=== PATIENT | female | born 1940 | race Caucasian/White ===

== ENCOUNTER 2024-03-18 19:55 | Inpatient (IN) | payer MEDICARE, SELFPAY ==
[2024-03-18] VITALS (22 sets, daily range): BP systolic 133–250; BP diastolic 78–124; PULSE 65–98; RESP 15–26; TEMP -17.7–37.1; O2SAT 95–100; BMI 28.9
--- NOTE | 2024-03-18 19:59 | EKG12_ITS ---
Test Reason : STROKE Blood Pressure : / mmHG Vent. Rate : 073 BPM Atrial Rate : 073 BPM P-R Int : 164 ms QRS Dur : 080 ms QT Int : 426 ms P-R-T Axes : 049 056 057 degrees QTc Int : 469 ms Normal sinus rhythm Nonspecific ST abnormality Abnormal ECG No previous ECGs available Confirmed by CARMELA BARRETO, CRISTIN ([id number]), writer editor LYNN BRONSON ([id number]) on 03/23/2024 6:12:44 AM Referred By: Asmita Oseguera Confirmed By:CRISTIN CASEY MD
--- NOTE | 2024-03-18 20:00 | EDS_ITS ---
HPI History of Present Illness Chief Complaint: Stroke Alert Onset/Context/Timing Onset: Today Context: Sudden Onset Timing: Waxes and wanes Quality and Location: Positive for Right Arm Weakness and Right Leg Weakness; Negative for Slurred Speech, Expressive Aphasia or Receptive Aphasia Worsened by: Nothing Relieved by: Nothing Associated Symptoms Associated Symptoms: Negative for Headache, Nausea, Vomiting or Chest Pain Narrative Narrative: Patient presents with stroke symptoms that began today. Patient states her last known well was approximately 1745. Patient states she was watching TV and she felt dizzy. Patient states her right arm and leg became weak. Patient denies any difficulty speaking. Patient denies any facial weakness. Patient states that the dizziness felt like she was off balance. Patient denies any headaches. Patient states she took 2 regular strength aspirin. EMS noted her blood pressure to be 250 systolic. EMS repeated the blood pressure and it came down to 195 systolic. Upon arrival to the emergency department, patient's symptoms had improved. [facility] Medical History (Updated 03/18/24 @ 21:[address] Shamir Richard, ) Hypertension Home Medications ?Medication ?Instructions ?Recorded ?Last Taken ?Type atenolol 50 mg tablet 50 mg PO DAILY 03/18/24 Unknown History conj estrogen-medroxyprogesterone 1 tab PO DAILY 03/18/24 Unknown History 0.625 mg-2.5 mg tablet (Prempro) hydrochlorothiazide 50 mg tablet 50 mg PO DAILY 03/18/24 Unknown History Allergy/AdvReac Type Severity Reaction Status Date / Time No Known Allergies Allergy Verified 03/18/24 20:49 Family History (Updated 03/18/24 @ 20:52 by Tea Kevin) Mother Cancer Surgical History no surgical history no surgical history Social History household members: none ROS ROS ED Constitutional Constitutional ED: Denies chills or fever(s) Eyes Eyes: Denies blurry vision or change in vision ENT ENT ED: Denies rhinorrhea or sore throat Cardiovascular Cardiovascular: Denies chest pain or palpitations Respiratory/Chest Respiratory/Chest: Denies cough or dyspnea Gastrointestinal Gastrointestinal: Denies nausea or vomiting Genitourinary Genitourinary ED: Denies dysuria or hematuria Musculoskeletal Musculoskeletal: Denies back pain or neck pain Integumentary Denies abscess or rash Neurologic Neurologic: Reports weakness; Denies headache(s) Allergic/Immunologic Allergic/Immunologic ED: Denies mouth swelling or urticaria EXAM Physical Exam Const Vital Signs: 03/18/24 20:13 03/18/24 20:14 Pulse Rate 83 Respiratory Rate 18 Blood Pressure 196/100 H Blood Pressure Mean 132 Pulse Ox 97 97 Oxygen Delivery Method Room Air Positive well nourished and well developed General Appearance ED: well developed and NAD HEENT Reports moist mucous membranes Eyes EOMs intact bilaterally Neck supple and no JVD Resp normal respiratory effort and clear to auscultation bilaterally Cardio Rate: regular rate Rhythm: regular rhythm GI soft to palpation, non-tender and non-distended Extremity General Extremety ED: Negative for deformity or edema General Extremity: Negative for deformity or edema Neuro oriented x3, CN's II-XII intact bilaterally and no sensory deficits noted Neuro Narrative: Patient is able to lift her bilateral arms and legs off the bed. However there is a mild drift of the right upper and lower extremities. Barbara Coma Scale: document GCS findings Spontaneous Obeys Commands Oriented 15 Sensorium / Orientation: alert Speech: speech normal Psych mental status grossly normal NIHSS NIHSS Initial: 1a Level of Consciousness: 0 1b LOC Questions (Score 2 if aphasic/stupor): 0 1c LOC Commands (Only score 1st attempt): 0 2 Best Gaze (If aphasic, use reflexive mvmts.): 0 3 Visual: 0 4 Facial Palsy: 0 5 Motor Arm Right (UN = amputation/fusion): 1 5 Motor Arm Left: 0 6 Motor Leg Right: 1 6 Motor Leg Left: 0 7 Limb ataxia (Only + if out of proportion): 0 8 Sensory (Aphasia/stupor=0 or 1, coma=2): 0 9 Best Language: 0 10 Dysarthria (mute, coma=2, intubated=UN): 0 11 Extinction and Inattention (only scored if +): 0 Total Score: 2 MDM MDM MDM Narrative Medical decision making narrative: Stroke alert was called prehospital. Patient was evaluated initially and CT scan of the brain and CTA of the head and neck was obtained to assess for stroke and large vessel occlusion. EKG will be obtained to assess for cardiac dysrhythmia and cardiac ischemia. CBC will be obtained to assess for leukocytosis and anemia. Basic metabolic profile will be obtained to assess for electrolyte abnormality and renal function. High-sensitivity troponin will be obtained to assess for cardiac ischemia. PT with INR and PTT will be obtained to assess for coagulopathy. Chest x-ray will be obtained to assess for pneumonia and widened mediastinum. Lab Data Attestation: I reviewed the patient's lab results. Lab results narrative: CBC was reviewed and was within normal limits. PT with INR and PTT were reviewed and were within normal limits. Labs: Laboratory Results - last 24 hr 03/18/24 19:45 WBC 6.3 RBC 4.72 Hgb 14.2 Hct 41.1 MCV 87.1 MCH 30.1 MCHC 34.5 RDW Std Deviation 39.6 RDW Coeff of Belk[place] 12.5 Plt Count 256 MPV 10.5 Immature Gran % (Auto) 0.200 Neut % (Auto) 54.1 Lymph % (Auto) 32.2 Long % (Auto) 11.1 H Eos % (Auto) 1.3 Baso % (Auto) 1.1 H Absolute Neuts (auto) 3.4 Absolute Lymphs (auto) 2.04 Nucleated RBC % 0 PT 12.4 INR 0.9 APTT 29.4 Radiography Chest X-Ray - ED: 1 View, Read by ED Physician, Read by Radiologist and No Acute Disease Diagnostic Testing: Clinical Impression(s) from Imaging Studies Brain CT 03/18/24 20:01 IMPRESSION: No acute disease Electronically Signed: John Cortes MD at 20:16 EDT Reading Location ID and State: [address] [place] [address] Tel , Service support , ADDENDUM: 03/18/242027 IMPRESSION: No acute disease N.B. : The above Results were Read Back by John Cortes MD to Shamir Richard DO, and understanding confirmed on 03/18/2024 20:21:25 (ET). Electronically Signed: John Cortes MD at 20:16 EDT , CT scan of the brain was obtained. There is no acute intracranial abnormality. This was interpreted by the radiologist and was also independently reviewed by myself. CTA of the head and neck was obtained. There is moderate stenosis of the vertebral arteries. There is moderate stenosis of the right and left cavernous carotid arteries, right worse than left. This was interpreted by the radiologist was independently reviewed by myself. Portable 1 view chest x-ray was obtained. On my independent interpretation, lung andre are clear. There is normal cardiac silhouette. Bony thorax is normal. There is no acute process noted. Radiologist also interpreted the x- ray and agrees. EKG Initial EKG: Attestation: I personally reviewed and interpreted this EKG as follows: Interpretation: Sinus Rhythm (73) and No Acute Injury Pattern Comments: EKG was obtained. On my independent interpretation, it showed a normal sinus rhythm with a rate of 73. TN interval, QRS interval, and QTc intervals were all normal. [place] was normal. There are nonspecific ST-T wave changes. Prior EKG tracings: not available for review Prior: No Prior Management Discussion w/another healthcare provider: Hospitalist, Ash Conveyor Operator and Radiologist Treatment and Re-Evaluation Narrative: Case was discussed with the stroke neurologist who evaluated the patient. Since the patient's symptoms are waxing and waning, tenecteplase was recommended by the stroke neurologist. Patient was agreeable with this. Patient was given with tenecteplase. Patient was given a dose of labetalol prior to adm inistration of tenecteplase for her elevated blood pressure. Currently, patient's blood pressure is 169/81. Case was discussed with the hospitalist. She will admit the patient to ICU. Patient and family understand and are agreeable with the plan. All questions were answered. Stroke Documentation Questions Stroke Team Activated: Yes Reviewed Inclusion/Exclusion criteria: Yes Was Patient considered for Endovascular Intervention?: No-CTA negative, determined not to be an endovascular candidate IV Thrombolytic Administered: Yes No contraindications from thrombolytic administration: Yes Risks, Benefits, Alternatives Discussed: Yes Reasons for Thrombolytic Delay IV antihypertensives needed to reduce BP prior to Thrombolytic Administration: Yes Critical Care Time Critical Care Time: Yes Critical care time (excluding procedures): 30-74 minutes (36 minutes), Including time spent:, Discussing w/Patient &/or Family/Audio Visual Design Engineer, Discussing w/Consultants, Arranging Admission or Transfer and Performing Direct Patient Care at Bedside Discharge Plan Triage Chief Complaint: Stroke Alert Other Complaint: Neuro S/Sx ED Provider: Shamir Richard Dx/Rx/DC Orders Clinical Impression: Stroke, Hypertension, Peripheral artery disease Prescriptions: No Action hydrochlorothiazide 50 mg tablet 50 mg PO DAILY Prempro 0.625-2.5 mg tablet 1 tab PO DAILY atenolol 50 mg tablet 50 mg PO DAILY Primary Care Provider: Radha Quigley Referrals: Radha Quigley MD [Primary Care Provider] - Print Language: Kazakh Disposition Disposition: Acute Care Hospital [facility]
--- NOTE | 2024-03-18 20:01 | CT_ITS ---
We are attempting to reach an attending provider to discuss findings. An addendum with communication details will be sent when the communication is complete. STUDY: CT BRAIN WITHOUT CONTRAST REASON FOR EXAM: Female, 83 years old. Neuro deficit, acute, stroke suspected RADIATION DOSAGE (If Supplied By Facility): CTDIvol = ( ) mGy, DLP = ( 829.85 ) mGycm TECHNIQUE: Transaxial CT imaging of the brain was performed without administration of intravenous contrast material. Individualized dose optimization techniques were used for this CT. The protocol utilizes one or more of the following dose reduction techniques: automated exposure control, adjustment of mA and/or kV according to patient size,and/or use of iterative reconstruction technique. COMPARISON: No relevant priors. FINDINGS: Normal soft tissue structures. Normal calvarium. There is mild cerebral atrophy with widening of the extra-axial spaces and ventricular dilatation. There are areas of decreased attenuation within the white matter tracts of the supratentorial brain, consistent with microvascular disease changes. Normal basal ganglia and thalami. Normal brainstem. Normal cerebellum. Intracranial atherosclerosis. There is no intracranial hemorrhage. There are no findings of an acute ischemic infarction. Normal visualized paranasal sinuses. CT/STROKE Brain/Head without Cont IMPRESSION: No acute disease Electronically Signed: John Cortes MD at 20:16 EDT ,
--- NOTE | 2024-03-18 20:01 | CT_ITS ---
STUDY: CTA HEAD AND NECK WITH CONTRAST REASON FOR EXAM: Female, 83 years old. Neuro deficit, acute, stroke suspected RADIATION DOSAGE (If Supplied By Facility): CTDIvol = ( 23.71 ) mGy, DLP = ( 715.89 ) mGycm TECHNIQUE: CT angiography was performed with a multi-detector CT scanner. Data acquisition was obtained from the skull base through the vertex following intravenous administration of IV 100mL [id number]. MIP images were reconstructed from the axial data set. Post-processing of the angiographic images was performed, with multiplanar reformation and 3D reconstruction. Individualized dose optimization techniques were used for this CT. The protocol utilizes one or more of the following dose reduction techniques: automated exposure control, adjustment of mA and/or kV according to patient size,and/or use of iterative reconstruction technique. COMPARISON: No relevant priors. FINDINGS: Normal bilateral petrous carotid arteries. There is calcified plaque formation of the right cavernous carotid artery, with a moderate stenosis (50-75%). There is calcified plaque formation of the left cavernous carotid artery, with a mild stenosis (less than 50%). Normal right A1 segments of the anterior cerebral artery. Normal left A1 segments of the anterior cerebral artery. Normal intact anterior communicating artery (ACOM). Normal bilateral A2 segments of the anterior cerebral arteries. Normal right M1 and M2 segments of the middle cerebral arteries, with a normal M1 bifurcation. Normal left M1 and M2 segments of the middle cerebral arteries, with a normal M1 bifurcation. There is non-visualization of the right posterior communicating artery (PCOM). Normal left posterior communicating artery (PCOM). Moderate stenosis distal vertebral arteries bilaterally. Normal basilar artery with a normal basilar bifurcation. The visualized bilateral superior cerebellar (SCA) arteries are normal. Normal bilateral P1, P2 and visualized P3 segments of the posterior cerebral arteries. Persistent origin of the left. There is no demonstrated aneurysm of the [place]. There is no demonstrated abnormality of the visualized brain. AORTIC ARCH: Normal visualized aortic arch. Normal origins of the brachiocephalic, left common carotid, and left subclavian arteries. RIGHT CAROTID ARTERIES: Normal right common carotid artery (CCA). There is moderate atherosclerotic plaque formation with moderate narrowing of the right carotid bulb. There is moderate atherosclerotic plaque formation of the origin of the right internal carotid artery with an estimated stenosis of 50-69% stenosis. Normal visualized cervical portion of the right internal carotid artery. Normal origin of the right external carotid artery (ECA). LEFT CAROTID ARTERIES: Normal left common carotid artery (CCA). There is moderate atherosclerotic plaque formation with moderate narrowing of the carotid bulb. There is moderate atherosclerotic plaque formation of the origin of the left internal carotid artery with an estimated stenosis of 50-69% stenosis. Normal visualized cervical portion of the left internal carotid artery. Normal origin of the left external carotid artery (ECA). VERTEBRAL ARTERIES: Calcified plaque the origin of the right vertebral artery with probable moderate stenosis of the distal vertebral arteries bilaterally V4 segments.. 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 Bilateral vertebral artery stenoses as above. Sensitivity limited without 3-D reformats. N.B. : The above Results were Read Back by John Cortes MD to Shamir Richard DO, and understanding confirmed on 03/18/2024 20:44:23 (ET). Electronically Signed: John Cortes MD at 20:45 EDT ,
[2024-03-18 20:09] LABS: Absolute Lymphocyte Count 2.04 X10^3/uL (0.83-4.51); Absolute Neutrophil Count 3.4 X10^3/uL (2.0-7.7); Basophil# 0.07 X10^3/uL; Basophil% 1.1 % (0-1); Eosinophil# 0.08 X10^3/uL; Eosinophils% 1.3 % (0-5); Hematocrit 41.1 % (37-47); Hemoglobin 14.2 g/dL (12.0-15.0); Lymphocyte # 2.04 X10^3/ul (0.83-4.51); Lymphocyte % 32.2 % (19-41); Mean Corp Hgb Conc 34.5 g/dL (32-36); Mean Corpuscular Hgb 30.1 pg (27.0-32.0); Mean Corpuscular Volume 87.1 fL (81-99); Mean Platelet Vol. 10.5 fl (6.2-12.0); Monocyte% 11.1 % (0-10); NRBC Flagged by Analyzer 0 % (0-5); Neutrophil # 3.43 X10^3/uL (2.7-7.7); Neutrophil % 54.1 % (47-70); Platelet Count 256 K/mm3 (150-450); RBC Distribution Width CV 12.5 % (11.6-14.6); RBC Distribution Width SD 39.6 fl (35.1-43.9); Red Blood Count 4.72 M/mm3 (4.2-5.4); White Blood Count 6.3 K/mm3 (4.4-11.0)
--- NOTE | 2024-03-18 20:10 | NURSING ---
Called [facility] at 2000
[2024-03-18 20:18] LABS: International Normalized Ratio 0.9; Prothrombin Time (Protime)PT. 12.4 SECONDS (11.7-14.9)
[2024-03-18 20:19] LABS: Partial Thromboplast Time 29.4 Seconds (24.1-36.2)
[2024-03-18 20:29] LABS: Bedside Glucose 126 mg/dL (74-106)
[2024-03-18] MEDS: Labetalol (Prefilled) 20 MG/4 ML IV ×2 (20:39→22:02)
[2024-03-18] MEDS: TENECTEPLASE 2563.2 MG IV (20:42)
[2024-03-18 20:43] LABS: Anion Gap 8 (5-15); BUN 16 mg/dL (7-18); BUN/Creat Ratio 16.4 RATIO (10-20); Calcium,Total 8.7 mg/dL (8.5-10.1); Chloride 102 mmol/L (98-107); Creatinine, Serum 0.98 mg/dL (0.55-1.02); EST Glomerular Filtration Rate 58 mL/min (>60); Est Glom Filt Rate - Afr Amer 70 mL/min (>60); Estimated Creatinine Clearance 38.31 ml/min; Glucose 124 mg/dL (74-106); Potassium 3.3 mmol/L (3.5-5.1); Sodium Level 134 mmol/L (136-145); Troponin-I HS 8 pg/mL (3.0-54.0)
[2024-03-18] MEDS: 0.9% Saline Lock 10 ML Syringe IV ×2 (20:43)
[2024-03-18] MEDS: 0.9% Normal Saline (1000mL) 1,000 ML 100 ML IV ×2 (20:49→22:11)
--- NOTE | 2024-03-18 20:50 | RAD_ITS ---
STUDY: X-RAY CHEST REASON FOR EXAM: Female, 83 years old. Neuro deficit, acute, stroke suspected TECHNIQUE: Frontal and lateral views of the chest. COMPARISON: None. FINDINGS: The lungs are clear and expanded. There is no demonstrated pleural abnormality. Normal size heart. Normal mediastinum and yesenia. Normal visualized pulmonary arteries. Normal visualized aortic arch and descending thoracic aorta. Normal visualized thoracic spine. Normal visualized ribs, clavicles, and shoulders. There is no demonstrated abnormality of the visualized soft tissue structures of the upper abdomen. RAD/Chest 1 View IMPRESSION: Normal x-ray examination of the chest. Electronically Signed: John Cortes MD at 22:23 EDT ,
--- NOTE | 2024-03-18 20:53 | HP.PCM.HOS_ITS ---
HPI - General General Date of Admission: 03/18/24 Date of Service: 03/18/24 Chief Complaint: R sided weakness HPI Narrative The patient is an 83 y/o F w/ PMHx: HTN who presents to the [facility] ED on 03/18/24 with history of onset initially dizziness while cleaning and vacuuming her house following onset approximately 6 PM profound right-sided upper and lower extremity weakness causing a mechanical fall prompting immediate EMS call with initial blood pressure 250/110 with improvement on route without treatment noting second assessment 190/100 and fortunately upon ED arrival with initial ED assessment reevaluation with complete resolution of previous symptoms with NIH stroke scale 0 but eventually symptoms did return and she notes they would be waxing and waning in the ED however eventually the right side became near flaccid. Also in the ED upon hospitalist evaluation patient was noted to have a mild right-sided nasolabial flattening in addition to significant debility of the right upper and lower extremity. Workup in the ED included CBC with WC 6.3, human 14.2, platelet 256 without marked shift, coags unremarkable, BMP with sodium 134, potassium 3.3, glucose 124 otherwise not marked appearing, troponin 8, CT head with no acute intracranial findings, CTA head and neck with bilateral carotid artery stenosis with noted right ICA estimated stenosis 50 to 69% and left ICA also 50 to 69%, bilateral vertebral artery stenosis with noted calcified plaque at the origin of the right vertebral artery with probable moderate stenosis of the distal vertebral arteries bilaterally at the V4 segments, EKG SR with no acute evidence of ischemia, mild flattening T wave AVL. Telestroke consultation obtained with confirmation per patient of last known normal 6 PM. NIH stroke scale assessment per Telestroke evaluation noted to be 2 for mild upper and lower extremity drift with concern for ischemic stroke with recommendation for administration of tenecteplase given recurrent symptoms in the ED as patient had initially resolved upon ED arrival. In the ED patient ministered maintenance IV fluids. [facility] Medical History (Updated 03/18/24 @ 21:[address] Shamir Richard, DO) Hypertension Home Medications ?Medication ?Instructions ?Recorded ?Last Taken ?Type atenolol 50 mg tablet 50 mg PO DAILY 03/18/24 Unknown History conj estrogen-medroxyprogesterone 1 tab PO DAILY 03/18/24 Unknown History 0.625 mg-2.5 mg tablet (Prempro) hydrochlorothiazide 50 mg tablet 50 mg PO DAILY 03/18/24 Unknown History Allergy/AdvReac Type Severity Reaction Status Date / Time No Known Allergies Allergy Verified 03/18/24 20:49 Family History (Updated 03/18/24 @ 21:[address] Asmita Oseguera MD) Mother Cancer Ovarian, uterine CA. CAD (coronary artery disease) Heart disease Hypertension Myocardial infarction Father Myocardial infarction [place] following fall with hip fracture, treated medically. Surgical History (Updated 03/18/24 @ 21:[address] Asmita Oseguera MD) No history of previous surgery Surgical History no surgical history Social History (Updated 03/18/24 @ 21:[address] Asmita Oseguera MD) household members: none Smoking Status: Never smoker alcohol intake: never substance use type: does not use ROS ROS Narrative Admission Review of Systems: CONSTITUTIONAL: No weight loss, fever, chills, + weakness or fatigue. HEENT: Eyes: No visual loss, blurred vision, double vision or yellow sclerae. Ears, Nose, Throat: No hearing loss, sneezing, congestion, runny nose or sore throat. SKIN: No rash or itching, lesions, wounds. CARDIOVASCULAR: No chest pain, chest pressure or chest discomfort, palpitations, edema, orthopnea, syncopal events. RESPIRATORY: No shortness of breath, cough or sputum, wheezing, hemoptysis. GASTROINTESTINAL: No anorexia, nausea, vomiting or diarrhea, abdominal pain, melena, BRBPR. GENITOURINARY: No dysuria, frequency, urgency or retention. NEUROLOGICAL: + Dizziness episode, onset right-sided weakness with mechanical fall. No headache, syncope, numbness or tingling in the extremities, change in bowel or bladder control, seizure. MUSCULOSKELETAL: No muscle, back pain, joint pain or stiffness. HEMATOLOGIC: No anemia, bleeding or bruising. LYMPHATICS: No enlarged nodes. No history of splenectomy. PSYCHIATRIC: No history of depression or anxiety. ENDOCRINOLOGIC: No reports of sweating, cold or heat intolerance. No polyuria or polydipsia. ALLERGIES: No history of asthma, hives, eczema or rhinitis. Vital Signs Vital Signs Vital Signs: 03/18/24 20:13 03/18/24 20:14 03/18/24 20:37 Pulse Rate 83 79 Respiratory Rate 18 17 Blood Pressure 196/100 H 205/88 H Blood Pressure Mean 132 127 Pulse Ox 97 97 97 Oxygen Delivery Method Room Air Room Air 03/18/24 20:42 Pulse Rate Respiratory Rate Blood Pressure 169/81 H Blood Pressure Mean Pulse Ox Oxygen Delivery Method Weight Weight: 157 lb Body Mass Index (BMI) 0.0 Physical Exam Narrative Physical Examination: General: Awake, alert, oriented x 3 and cooperative, seated upright in the ED bed, currently more calm and interactive but before per discussion with staff had been very appropriately anxious about her current situation. Skin: Normal color, normal turgor, no icterus, no cyanosis. HEENT: AT/NC, EOMI, PERRLA, MMM, mild slight right nasolabial fold flattening which corrects with facial expression requests, no carotid bruits or JVD noted. Lungs: CTA bilaterally, moderate effort, mild decrease BL bases, no rales, ronchi or wheezing. Heart: Currently regular rate and rhythm; no gallop, rub audible. Abdomen: Soft, NTTP, ND, distant normal BS, no appreciated HSM. Extremities: No cyanosis, no clubbing, chronic ankle nonpitting edema present. Neurological: Patient awake, alert, oriented as noted, cognitive function intact; pupils equally reactive to light and accommodation, cranial nerves grossly normal except very mild right-sided nasolabial flattening which corrects with facial expressions, patient is able to move very slightly the right upper and right lower extremity but is unable to hold up against any type of gravity request, unable to perform any finger-nose or [id number] on the right side, sensation does remain intact, left side [id number] and liad-[id number] appropriate, equivocal Babinski. Psychiatric: Affect appears anxious but is more calm now than previous, no history of prior anxiety or depression. Results Lab / Micro Data 03/18/24 19:45 03/18/24 19:45 Labs: Laboratory Results - last 24 hr 03/18/24 19:45: WBC 6.3, RBC 4.72, Hgb 14.2, Hct 41.1, MCV 87.1, MCH 30.1, MCHC 34.5, RDW Std Deviation 39.6, RDW Coeff of Belkys 12.5, Plt Count 256, MPV 10.5, Immature Gran % (Auto) 0.200, Neut % (Auto) 54.1, Lymph % (Auto) 32.2, Chambers % (Auto) 11.1 H, Eos % (Auto) 1.3, Baso % (Auto) 1.1 H, Absolute Neuts (auto) 3.4, Absolute Lymphs (auto) 2.04, Nucleated RBC % 0, PT 12.4, INR 0.9, APTT 29.4, S odium 134 L, Potassium 3.3 L, Chloride 102, Carbon Dioxide 24.0, Anion Gap 8, BUN 16, Creatinine 0.98, Estim Creat Clear Calc 38.31, Est GFR (MDRD) Af Amer 70, Est GFR (MDRD) Non-Af 58 L, BUN/Creatinine Ratio 16.4, Glucose 124 H, Calcium 8.7, Troponin I High Sens 8 03/18/24 19:59: POC Glucose 126 H Imaging Radiology Impression Brain CT 03/18/24 20:01 IMPRESSION: No acute disease Electronically Signed: John Cortes MD at 20:16 EDT Reading Location ID and State: [address] [place] [address] Tel , Service support , ADDENDUM: 03/18/242027 IMPRESSION: No acute disease N.B. : The above Results were Read Back by John Cortes MD to Shamir Richard DO, and understanding confirmed on 03/18/2024 20:21:25 (ET). Electronically Signed: John Cortes MD at 20:16 EDT Reading Location ID and State: [facility] / [place] Tel , Service support , Head/Neck CTA 03/18/24 20:01 IMPRESSION: Right greater than left cavernous carotid artery stenoses as above. Bilateral vertebral artery stenoses as above. Sensitivity limited without 3-D reformats. N.B. : The above Results were Read Back by John Cortes MD to Shamir Richard DO, and understanding confirmed on 03/18/2024 20:44:23 (ET). Electronically Signed: John Cortes MD at 20:45 EDT Reading Location ID and State: [facility] / [place] Tel , Service support , ADDENDUM: 03/18/242051 IMPRESSION: Right greater than left cavernous carotid artery stenoses as above. Bilateral vertebral artery stenoses as above. Sensitivity limited without 3-D reformats. N.B. : The above Results were Read Back by John Cortes MD to Shamir Richard DO, and understanding confirmed on 03/18/2024 20:44:23 (ET). Electronically Signed: John Cortes MD at 20:45 EDT , Assessment & Plan Assessment/Plan (1) CVA (cerebral vascular accident): PLAN: Plan The patient is an 83 y/o F w/ PMHx: HTN who presents to the [facility] ED on 03/18/24 with history of onset right-sided upper and lower extremity weakness starting approximately 2 hours prior to EMS call and secondary to ongoing persistent symptoms patient eventually prompted evaluation with EMS reporting her initial blood pressure 250/110 with improvement on route without treatment noting second assessment 190/100 and fortunately upon ED arrival with initial ED assessment reevaluation with complete resolution of previous symptoms with NIH stroke scale 0 but eventually symptoms did return prompting tenecteplase administration and stroke alert. #1. Right-sided hemiplegia, mild right-sided nasolabial fold flattening, initially waxing and waning but eventually more profound concerning for CVA w/ BL ICA 50 to 69% stenosis in addition to bilateral vertebral artery stenosis status post tenecteplase administration: Will admit to the ICU following tenecteplase initiation in the ED, will consult food service per ICU protocol, will continue consultation with neurology services, will obtain repeat CT head versus MRI Brain at the 24-hour gary to assure no intracranial bleeding and if this demonstrates no acute findings would plan initiation of aspirin therapy at that time, ECHO with bubble study, PT/OT/Speech/Nutrition evaluation per protocol. Will obtain bilateral carotid ultrasound to assist with future follow-up with vascular surgery which will need to be arranged at discharge. Will allow permissive HTN with as needed agents per stroke protocol especially given tenecteplase usage, add statin w/ AM FLP, fall precautions. Mag, TSH, FLP, HgbA1c requested. Maintain on fall and aspiration precautions. #2. Hypokalemia: Admission K+ 3.3, magnesium level requested, supplementation given, repeat level in AM. #3. Hypertension: Will maintain permissive hypertension given acute presentation as noted above #1, will have as needed regimen per stroke protocol however as noted blood pressure did improve from initial EMS significantly elevated level but will continue closely monitor. #4. Possible Chronic Kidney Disease Stage, possibly stage III based on current GFR unclear subtype but no previous comparison thus uncertain: Admission BUN/Cr 16/0.98, GFR 58, no comparison, unclear if this is CONNIE, renal insufficiency or likely chronic kidney disease, will repeat BMP in AM to further elucidate. #5. DVT prophylaxis: SCDs, holding any chemoprophylaxis given tenecteplase usage but once repeat imaging at the 24-hour gary demonstrate no concerning bleeding then would plan to initiate chemoprophylaxis at that time if felt appropriate. #6. CODE status: Patient HCPOA nor living will are not in place but she notes that if she needed medical decisions made her daughters who are present would be her decision makers. Discussed CODE status at length including difference between FULL code, DNR-CCA and DNR-CC status. Following discussions about the differences in these status, requested Full Code status. Advanced Care Planning Face to Face Time: 16 minutes. Charges/Coding Visit Charges Inpatient E&M: 18512 Init Hosp L3 Procedures Hospitalists Procedures: 46701 Advncd Care Plan 30 Min
[2024-03-18 21:17] LABS: Magnesium 2.2 mg/dL (1.6-2.6)
--- NOTE | 2024-03-18 21:26 | ED.RN ---
Dr. Richard told that the patient's NIH went from a 2 to a 6.
--- NOTE | 2024-03-18 21:47 | ECHOD_ITS ---
Reason For Study: TIA/CVA Procedure This was a 2D Doppler, Color Flow transthoracic echocardiogram. Exam performed portable in ICU/CCU. Left Ventricle Normal left ventricle. The estimated ejection fraction is 55-60 %. Atria Normal left atrium. Normal right atrium. Bubble contrast study is negative for PFO/ASD. Mitral Valve There is mild to moderate mitral annular calcification. Trivial mitral valve insufficiency. Tricuspid Valve Normal tricuspid valve. Trivial tricuspid valve insufficiency. Aortic Valve The aortic valve is not well visualized in the short axis view. Great Vessels The aortic root is not well visualized. Pericardium/Pleural No pericardial effusion. Medication Performed a rapid injection of agitated mix of 9 cc saline and 1cc air to assess for atrial septal defect. MMode/2D Measurements & Calculations RVDd: 3.3 cm LAV(MOD-bp): 61.1 ml LVAd ap4: 24.0 cm2 LAV(MOD-bp) Indexed: 35.3 ml/m2 LVLd ap4: 7.3 cm LAV(MOD-sp2): 64.7 ml EDV(MOD-sp4): 63.6 ml LAV(MOD-sp4): 57.0 ml EDV(sp4-el): 66.7 ml LVAs ap4: 11.3 cm2 LVLs ap4: 6.1 cm ESV(MOD-sp4): 19.1 ml ESV(sp4-el): 17.6 ml EF(MOD-sp4): 69.9 % EF(sp4-el): 73.6 % SV(MOD-sp4): 44.4 ml SV(sp4-el): 49.1 ml LA A4 area: 19.7 cm2 RA A4 area: 9.7 cm2 TAPSE: 2.4 cm Time Measurements MV dec time: 0.32 sec Doppler Measurements & Calculations MV E max roshan: 80.5 cm/sec Lat Peak E' Roshan: 7.3 cm/sec Med Peak E' Roshan: 6.7 cm/sec MV A max roshan: 91.6 cm/sec E/E' lat: 11.0 E/E' med: 12.0 MV E/A: 0.88 MV V2 max: 102.2 cm/sec MV dec slope: 249.8 cm/sec2 Ao V2 max: 148.0 cm/sec MV max P.2 mmHg Ao max P.8 mmHg MV V2 mean: 63.3 cm/sec Ao V2 mean: 102.0 cm/sec MV mean P.8 mmHg Ao mean P.7 mmHg MV V2 VTI: 27.7 cm Ao V2 VTI: 35.7 cm AV (velocity ratio): 0.83 LV V1 max: 120.7 cm/sec PA V2 max: 93.5 cm/sec TR max roshan: 259.8 cm/sec LV V1 max P.8 mmHg PA max PG (full): 0.45 mmHg TR max P.0 mmHg LV V1 mean P.3 mmHg PA V2 mean: 75.9 cm/sec LV V1 mean: 86.1 cm/sec LV V1 VTI: 29.7 cm ECHO/Echo Complete Interpretation Summary The estimated ejection fraction is 55-60 %. Ordering Physician: Asmita Oseguera Referring Physician: Asmita Oseguera Performed By: Luciana Adams and Student
--- NOTE | 2024-03-18 21:47 | CDU_ITS ---
Reason For Study: Carotid Stenosis Rt. Velocities/BP Lt. Velocities/BP Prox CCA 98.5/14.9 cm/sec. Prox CCA 64.4/12.7 cm/sec. Mid CCA 77.6/17.1 cm/sec. Mid CCA 72.1/17.1 cm/sec. Dist CCA 67.7/12.7 cm/sec. Dist CCA 63.3/13.8 cm/sec. Prox ICA 66.6/19.3 cm/sec. Prox ICA 112.5/34.0 cm/sec. Mid ICA 60.9/19.7 cm/sec. Mid ICA 77.8/21.2 cm/sec. Dist ICA 53.3/16.9 cm/sec. Dist ICA 92.4/28.5 cm/sec. Rt. ICA/CCA = 0.9. Lt. ICA/CCA = 1.6. Prox ECA 58.1/7.9 cm/sec. Prox ECA 83.3/8.4 cm/sec. Rt. Vert. 25.0/7.4 cm/sec. Lt. Vert. 32.5/10.4 cm/sec. Right Extracranial There is homogeneous, smooth atherosclerotic plaque noted in the right common carotid artery. There is heterogeneous, irregular atherosclerotic plaque noted in the right internal carotid artery. The distal right internal carotid artery is not well visualized. There is heterogeneous, irregular atherosclerotic plaque noted in the right external carotid artery. Antegrade flow is noted in the right vertebral artery. Left Extracranial There is homogeneous, smooth atherosclerotic plaque noted in the left common carotid artery. There is heterogeneous, irregular atherosclerotic plaque noted in the left internal carotid artery. There is heterogeneous, irregular atherosclerotic plaque noted in the left external carotid artery. Antegrade flow is noted in the left vertebral artery. Procedure Carotid Duplex 36709. This is a Carotid Duplex examination using B-mode, color flow and specral Doppler. The exam was diagnostic. Exam performed portable in ICU/CCU. VL/Carotid Duplex Ultrasound Interpretation Summary Smooth plaque noted within the right common carotid artery with irregular calci fic plaque with shadowing at the proximal right internal carotid artery. Less than 50% stenosis of the right internal carotid artery. Notation is made that the distal right internal carotid artery was difficult to image Less than 50% stenosis right external carotid artery Smooth plaque noted in the left common carotid artery with irregular plaque wit h a degree of calcific shadowing at the proximal left internal carotid artery and less than 5 0% stenosis. Less than 50% stenosis left external carotid artery Patent and antegrade vertebral arteries bilaterally Ordering Physician: Asmita Oseguera Referring Physician: Radha Campbell Performed By: Ayaan Veloz RVT
--- NOTE | 2024-03-18 21:59 | NURSING ---
Blood pressure elevated above post-TNK BP goals upon arrival to ICU. Pharmacy called for dose of labetalol and cardene gtt. Awaiting these medications at this time.
[2024-03-18] MEDS: Atorvastatin Calcium 40 MG Tablet PO (22:10)
[2024-03-18] MEDS: Potassium Chloride Oral Tablet 20 MEQ 40 MEQ PO (22:10)
[2024-03-18] MEDS: NICARdipine 25 MG in 0.9% Normal Saline (250mL Bag) 240 ML 50 ML IV (22:23)
[2024-03-19] VITALS (49 sets, daily range): BP systolic 113–196; BP diastolic 50–93; PULSE 66–93; RESP 14–22; TEMP 36.4–37.1; O2SAT 92–100; BMI 28.9; BMI 28.3
[2024-03-19] MEDS: NICARdipine 25 MG in 0.9% Normal Saline (250mL Bag) 240 ML 50 ML IV (02:49)
[2024-03-19 04:37] LABS: Absolute Neutrophil Count 7.1 X10^3/uL (2.0-7.7); Basophil# 0.06 X10^3/uL; Basophil% 0.6 % (0-1); Eosinophil# 0.05 X10^3/uL; Eosinophils% 0.5 % (0-5); Hematocrit 41.6 % (37-47); Hemoglobin 13.8 g/dL (12.0-15.0); Mean Corp Hgb Conc 33.2 g/dL (32-36); Mean Corpuscular Hgb 29.1 pg (27.0-32.0); Mean Corpuscular Volume 87.8 fL (81-99); Mean Platelet Vol. 10.1 fl (6.2-12.0); Monocyte# 0.73 X10^3/uL; Monocyte% 7.8 % (0-10); NRBC Flagged by Analyzer 0 % (0-5); Neutrophil # 7.07 X10^3/uL (2.7-7.7); Neutrophil % 75.8 % (47-70); Platelet Count 261 K/mm3 (150-450); RBC Distribution Width CV 12.5 % (11.6-14.6); RBC Distribution Width SD 40.7 fl (35.1-43.9); Red Blood Count 4.74 M/mm3 (4.2-5.4); White Blood Count 9.3 K/mm3 (4.4-11.0)
[2024-03-19 05:06] LABS: AST(SGOT) 25 U/L (15-37); Alanine Aminotransfer ALT/SGPT 22 U/L (13-56); Albumin, Serum 3.4 g/dL (3.2-5.0); Alkaline Phosphatase 59 U/L (45-117); Anion Gap 8 (5-15); BUN 12 mg/dL (7-18); BUN/Creat Ratio 14.5 RATIO (10-20); Calcium,Total 8.2 mg/dL (8.5-10.1); Chloride 107 mmol/L (98-107); Cholesterol 208 mg/dL (200); Creatinine, Serum 0.83 mg/dL (0.55-1.02); EST Glomerular Filtration Rate 70 mL/min (>60); Est Glom Filt Rate - Afr Amer 85 mL/min (>60); Estimated Creatinine Clearance 47.62 ml/min; Globulin 3.3 g/dL (2.2-4.2); Glucose 122 mg/dL (74-106); High Density Lipoprotein 58 mg/dL; Potassium 3.6 mmol/L (3.5-5.1); Protein, Total 6.7 g/dL (6.4-8.2); Sodium Level 137 mmol/L (136-145); Thyroid Stim Hormone (TSH) 2.36 uIU/mL (0.358-3.74); Triglycerides 96 mg/dL; Very Low Density Lipoprotein 19 mg/dL (5-40)
--- NOTE | 2024-03-19 06:58 | PCM.PN.HOSP ---
Reason for Visit Reason for Visit: Right-sided weakness Subjective Subjective Mrs. Calabrese is an 83-year-old white female who presented to the emergency department at [facility] on 03/18/2024 with a chief complaint of right-sided weakness. Patient reported that she had an onset of dizziness while cleaning and vacuuming her house at about 6 PM which was then followed by profound right-sided upper and lower extremity weakness that caused a mechanical fall. She called EMS and her initial blood pressure was 250/110 with improvement and route with no treatment. Second blood pressure was 190/100. Upon arrival to the emergency department she had complete resolution of her symptoms with an NIH stroke scale of 0 but symptoms did then return and were waxing and waning throughout time in the emergency department. Stroke team was called. She has a history of hypertension and was taking estrogen/progesterone. The case was reviewed with the stroke neurologist after data was collected and they recommended tenecteplase dosing which was given at approximately 8:30 PM on the . Vital signs on presentation demonstrated temperature 98.4, blood pressure of 196/100, respiratory was 22 and oxygen saturations were 97% room air. CBC was unremarkable. Coags were normal. Initial chemistry panel showed mild hyponatremia at 134 and hypokalemia with potassium of 3.3. His glucose is 124. Magnesium was within normal limits. Troponin was 8. We obtained a cholesterol panel with a total cholesterol of 208, LDL of 131 and HDL of 50. Her thyroid was 2.36 and within normal limits. CT of the brain was performed and showed no acute disease. CTA of the head and neck showed moderate atherosclerotic plaque at the origin of the left internal carotid rate at 50 to 69% with a normal left internal carotid artery and bilateral vertebral stenosis with calcified plaque at the origin of the right vertebral artery and probable moderate stenosis of the distal vertebral arteries bilaterally. Stroke neurologist evaluated the patient emergency department and recommended tenecteplase dosing timing as above. Current NIH is 7 with minor facial palsy and right-sided hemiparesis. Hemiparesis on the right side is quite dense and patient is right-hand dominant. We did discuss possible need for rehab at discharge and she was amenable to this. She stated she would like to stay at [facility] to do her rehab after we discussed options. Denies any current needs. Objective Data Objective Data Vital Signs: Vital Signs Temp Pulse Resp BP Pulse Ox O2 Del Method 98.7 F 71 15 162/78 H 96 Room Air 03/19/24 06:08 03/19/24 06:30 03/19/24 06:08 03/19/24 06:30 03/19/24 06:08 03/19/24 06:08 Oxygen Delivery Method Room Air Weight: 70.1 kg Body Mass Index (BMI) 28.3 Intake & Output: Intake and Output for Last 24 Hours 03/17/24 03/18/24 03/19/24 23:59 23:59 23:59 Intake Total 202.50 / 202.50 518.75 / 518.75 Output Total 1400 / 1400 1200 / 1200 Balance -1197.50 / -1197.50 -681.25 / -681.25 Lab / Micro Data 03/19/24 04:31 03/19/24 04:31 Labs: Laboratory Results - last 24 hr 03/18/24 19:45: WBC 6.3, RBC 4.72, Hgb 14.2, Hct 41.1, MCV 87.1, MCH 30.1, MCHC 34.5, RDW Std Deviation 39.6, RDW Coeff of Belkys 12.5, Plt Count 256, MPV 10.5, Immature Gran % (Auto) 0.200, Neut % (Auto) 54.1, Lymph % (Auto) 32.2, Tyrrell % (Auto) 11.1 H, Eos % (Auto) 1.3, Baso % (Auto) 1.1 H, Absolute Neuts (auto) 3.4, Absolute Lymphs (auto) 2.04, Nucleated RBC % 0, PT 12.4, INR 0.9, APTT 29.4, Sodium 134 L, Potassium 3.3 L, Chloride 102, Carbon Dioxide 24.0, Anion Gap 8, BUN 16, Creatinine 0.98, Estim Creat Clear Calc 38.31, Est GFR (MDRD) Af Amer 70, Est GFR (MDRD) Non-Af 58 L, BUN/Creatinine Ratio 16.4, Glucose 124 H, Calcium 8.7, Magnesium 2.2, Troponin I High Sens 8 03/18/24 19:59: POC Glucose 126 H 03/19/24 04:31: WBC 9.3, RBC 4.74, Hgb 13.8, Hct 41.6, MCV 87.8, MCH 29.1, MCHC 33.2, RDW Std Deviation 40.7, RDW Coeff of Belkys 12.5, Plt Count 261, MPV 10.1, Immature Gran % (Auto) 0.300, Neut % (Auto) 75.8 H, Lymph % (Auto) 15.0 L, Tyrrell % (Auto) 7.8, Eos % (Auto) 0.5, Baso % (Auto) 0.6, Absolute Neuts (auto) 7.1, Absolute Lymphs (auto) 1.40, Nucleated RBC % 0, Sodium 137, Potassium 3.6, Chloride 107, Carbon Dioxide 22.0, Anion Gap 8, BUN 12, Creatinine 0.83, Estim Creat Clear Calc 47.62, Est GFR (MDRD) Af Amer 85, Est GFR (MDRD) Non-Af 70, BUN/Creatinine Ratio 14.5, Glucose 122 H, Calcium 8.2 L, Total Bilirubin 0.30, AST 25, ALT 22, Alkaline Phosphatase 59, Total Protein 6.7, Albumin 3.4, Globulin 3.3, Albumin/Globulin Ratio 1.0, Triglycerides 96, Cholesterol 208 H, LDL Cholesterol 131 H, VLDL Cholesterol 19, HDL Cholesterol 58, TSH 2.36 Radiography Diagnostic Testing: Radiology Impression Brain CT 03/18/24 20:01 IMPRESSION: No acute disease Electronically Signed: John Cortes MD at 20:16 EDT Reading Location ID and State: [address] [place] [address] Tel , Service support , ADDENDUM: 03/18/242027 IMPRESSION: No acute disease N.B. : The above Results were Read Back by John Cortes MD to Shamir Richard DO, and understanding confirmed on 03/18/2024 20:21:25 (ET). Electronically Signed: John Cortes MD at 20:16 EDT Reading Location ID and State: [address] [place] [address] Tel , Service support , Head/Neck CTA 03/18/24 20:01 IMPRESSION: Right greater than left cavernous carotid artery stenoses as above. Bilateral vertebral artery stenoses as above. Sensitivity limited without 3-D reformats. N.B. : The above Results were Read Back by John Cortes MD to Shamir Richard DO, and understanding confirmed on 03/18/2024 20:44:23 (ET). Electronically Signed: John Cortes MD at 20:45 EDT Reading Location ID and State: [facility] / [place] Tel , Service support , ADDENDUM: 03/18/242051 IMPRESSION: Right greater than left cavernous carotid artery stenoses as above. Bilateral vertebral artery stenoses as above. Sensitivity limited without 3-D reformats. N.B. : The above Results were Read Back by John Cortes MD to Shamir Richard DO, and understanding confirmed on 03/18/2024 20:44:23 (ET). Electronically Signed: John Cortes MD at 20:45 EDT , Chest X-Ray 03/18/24 20:50 IMPRESSION: Normal x-ray examination of the chest. Electronically Signed: John Cortes MD at 22:23 EDT , Physical Exam Const alert, oriented x3, no apparent distress, average body habitus, healthy appearing and well nourished Constitutional Narrative: Older, white female, sitting up in bed, sister at bedside, appears comfortable, does not appear toxic, looks younger than stated age, very pleasant HEENT head/scalp atraumatic and moist oral mucous membranes HEENT Narrative: Dentures in place, Mallampati 2, no thrush Head and Scalp: normocephalic Resp normal respiratory effort, no retractions, no use of accessory muscles and clear to auscultation bilaterally Auscultation: Negative for rales, rhonchi or wheezes Cardio regular rate, regular rhythm, S1 normal heart sound, S2 normal heart sound, no murmurs, no rub, no gallops and no clicks GI normal to inspection, nondistended, normoactive bowel sounds, soft to palpation and non-tender Extremity no clubbing, cyanosis or edema Extremity Narrative: Pedal pulses are 2+, radial pulses are 2+ Skin Skin Narrative: Scattered ecchymosis due to hospitalization use of tenecteplase on admission Neuro oriented x3 Neuro Narrative: Slight right facial droop but all other cranial nerves intact, dense hemiparesis right upper and lower extremity with no sensory deficits Speech: speech normal Psych affect normal Psych Narrative: Eye contact is good, patient interacts appropriately, very pleasant Assessment & Plan Assessment/Plan (1) Stroke: (2) Carotid artery stenosis: (3) Hyperlipidemia: (4) Hypokalemia: (5) Hyperglycemia: PLAN: Plan Acute stroke -Suspect left MCA infarct -Current NIH is 7 -Tenecteplase given yesterday at about 8:30 PM -Repeat CT today at 9 PM -MRI tomorrow -Bedrest -Blood pressure control per protocol with as needed medications -Continue atorvastatin 40 mg daily -Lipids were elevated with a total cholesterol 208 and an LDL of 131 -Start aspirin at 24 hours after tenecteplase dosing if imaging is unremarkable -Echocardiogram pending -PT/OT consultation -Case management/social work consultation as it does sound like patient will need placement at discharge and would qualify for acute rehab if able to tolerate therapy -Will likely need to discontinue hormone replacement therapy -Neuroconsult pending -Will need outpatient follow-up with the neuro clinic Hypokalemia -Resolved Hyperglycemia -Fasting glucose this morning is 122 and was 124 at the time of admission -Could be stress response however patient also could be diabetic -Hemoglobin A1c is 5.8 and insulin resistance discussed with patient however she is not diabetic Carotid artery stenosis/vertebral artery stenosis -Moderate noted on CTA -Continue statin -No acute needs from vascular but will need vascular follow-up at discharge Hyperlipidemia -Total cholesterol 208 with an LDL of 131 HDL 58 -Continue statin 40 mg daily Hypertension -Hold home antihypertensives and use PRNs -Stroke protocol DVT prophylaxis -SCDs -Start chemoprophylaxis if CT is negative at 24 hours post tenecteplase CODE STATUS -Full code Charges/Coding Visit Charges Inpatient E&M: 65115 Subs Hosp L2
[2024-03-19 07:52] LABS: Hemoglobin A1c 5.8 % (3.8-5.6)
[2024-03-19] MEDS: 0.9% Normal Saline (1000mL) 1,000 ML 100 ML IV (08:07)
--- NOTE | 2024-03-19 10:15 | CASEMGMT ---
ELINOR CRUZ Assessment Face to Face with patient for initial transition planning/care coordination assessment. ELNIOR CRUZ introduced self and role at [facility], pt voices understanding. Pt is A&Ox4 and is resting comfortably in bed and is calm. Pt daughter (Jory) at bedside. Care providers, pharmacy, and demographics verified. Admitting dx: CVA, S/P TNK LACE Strata: 1 PCP: Soraida Specialists: Denies Preferred Pharmacy: [facility] Insurance: [employer] [facility] Prescription Benefit: Yes LNOK: Taylor Doll (Daughter), Jory Avila (Daughter) Living Arrangements: Pt lives alone in a 2 story condo with 2 steps to enter ADLs/IADLs: [place] [employer] Transportation: Self DME: [facility] [employer]. Denies all other DME uses HHC/SNF: Denies history Pt?s goal: Return to [facility] Plan: TBD. Pt 6-Click is currently 6. PT/OT is to be held until tomorrow. Pt is planned for a CT tonight and an MRI tomorrow. Pt will most likely be here through the weekend. CM/GAB to follow pt progression in the hospital as well as therapy recommendations in regard to safe DC from [facility]. Robin Diaz RN, CM
--- NOTE | 2024-03-19 11:53 | STROKE.CONS ---
Assessment and Plan: Stroke Assessment/Plan Tori Wade is a 83 yo F with PMH of HTN, PAD, not on AC/AP, on estrogen/progesterone who presented on 03/18 for acute stroke like symptoms. She had sudden onset dizziness while cleaning and vacuuming followed by right-sided upper and lower extremity weakness that caused a mechanical fall. EMS was called and patient was noted to by hypertensive to 250/110, improved to 190/100 without intervention. On arrival NIHSS was fluctuating from complete resolution of symptoms NIHSS 0 to RUE/RLE weakness and paresthesias with NIHSS 5. Stroke alerted and given TNK at 20:30 on 03/18. On examination today NIHSS 9 for R facial (1), RUE plegia (4), RLE paresis (3), Sensory deficit on R (1). CTH non acute. CTA without proximal LVO, and BL ICAD 50-69% stenosis, and moderate vertebral artery stenosis BL per report. On personal review R ICA does appear more stenotic with likely soft plaque as well. Carotid Duplex with BL ICAD with < 50%. MRI pending. TTE pending. LDL 131. A1C pending. IMPRESSION: The patient's constellation of signs and symptoms and neuroimaging findings are most consistent with acute ischemic stroke. She is s/p TNK, but unfortunately remains symptomatic. MRI is still pending. - Stroke Etiology: Pending completion of workup, risk factors include HTN, HLD ICAD, hormone replacement therapy RECOMMENDATIONS: - Remain in ICU - Post IV TNK order set - Post TNK BP goal < 180/105 - Requires post TNK [address] Scan, please obtain, if without signs of large ischemia, or hemorrhage, OK to start DVT ppx and ASA tomorrow morning - Order the following test for stroke evaluation if not already: MRI brain ( stroke protocol), carotid ultrasounds, Transthoracic echocardiogram, holter monitor, fasting lipid panel, HgbA1c - Occupational/Physical therapy consult - Hold DVT ppx until 24 hours post TNK - Anti-platelet medication : Aspirin 81 mg daily when able (currently holding for 24 hours post TNK) - Vascular risk factor modification: - Hyperlipidemia: LDL Goal < 70 mg/dL, start high intensity statin (atorvastatin 80 mg) for HLD (LDL 131) - Smoking Cessation HPI Consult Data Date of Consult: 03/19/24 HPI Narrative HPI Narrative: TORI SCHWARTZ, is a 83 F who presents [facility] Medical History (Updated 03/19/24 @ 07:[address] Irene Engel, DO) Hypertension Home Medications ?Medication ?Instructions ?Recorded ?Last Taken ?Type atenolol 50 mg tablet 50 mg PO DAILY 03/18/24 Unknown History conj estrogen-medroxyprogesterone 1 tab PO DAILY 03/18/24 Unknown History 0.625 mg-2.5 mg tablet (Prempro) hydrochlorothiazide 50 mg tablet 50 mg PO DAILY 03/18/24 Unknown History Allergy/AdvReac Type Severity Reaction Status Date / Time No Known Allergies Allergy Verified 03/18/24 20:49 Family History (Updated 03/18/24 @ 21:[address] Asmita Oseguera MD) Mother Cancer Ovarian, uterine CA. CAD (coronary artery disease) Heart disease Hypertension Myocardial infarction Father Myocardial infarction [place] following fall with hip fracture, treated medically. Surgical History (Updated 03/18/24 @ 21:[address] Asmita Oseguera MD) No history of previous surgery Surgical History no surgical history Social History (Updated 03/18/24 @ 21:[address] Asmita Oseguera MD) household members: none Smoking Status: Never smoker alcohol intake: never substance use type: does not use Vital Signs Vital Signs Vital Signs: 03/18/24 19:55 03/18/24 19:57 03/18/24 20:13 Temperature 0 F L Temperature Source Temporal Pulse Rate 92 98 83 Pulse Strength Respiratory Rate 22 H 18 Respiratory Effort Respiratory Depth Respiratory Pattern Blood Pressure 250/110 H 196/100 H 196/100 H Blood Pressure Mean 156 132 132 Blood Pressure Source Blood Pressure Position Blood Pressure Location Pulse Ox 95 97 97 Oxygen Delivery Method Room Air Room Air 03/18/24 20:14 03/18/24 20:30 03/18/24 20:37 Temperature Temperature Source Pulse Rate 98 79 Pulse Strength Respiratory Rate 22 H 17 Respiratory Effort Respiratory Depth Respiratory Pattern Blood Pressure 189/120 H 205/88 H Blood Pressure Mean 143 127 Blood Pressure Source Monitor Blood Pressure Position Sitting Blood Pressure Location Right Arm Pulse Ox 97 97 97 Oxygen Delivery Method Room Air Room Air Room Air 03/18/24 20:42 03/18/24 20:45 03/18/24 21:00 Temperature Temperature Source Pulse Rate 72 76 Pulse Strength Respiratory Rate 17 17 Respiratory Effort Respiratory Depth Respiratory Pattern Blood Pressure 169/81 H 175/93 H 195/124 H Blood Pressure Mean 120 147 Blood Pressure Source Monitor Monitor Blood Pressure Position Sitting Sitting Blood Pressure Location Right Arm Right Arm Pulse Ox 95 97 Oxygen Delivery Method Room Air 03/18/24 21:15 03/18/24 21:15 03/18/24 21:30 Temperature 0 F L Temperature Source Pulse Rate 73 73 75 Pulse Strength Respiratory Rate 20 H 20 H 18 Respiratory Effort Respiratory Depth Respiratory Pattern Blood Pressure 216/99 H 216/99 H 201/91 H Blood Pressure Mean 138 138 127 Blood Pressure Source Monitor Monitor Blood Pressure Position Sitting Sitting Blood Pressure Location Right Arm Right Arm Pulse Ox 97 97 97 Oxygen Delivery Method Room Air 03/18/24 21:45 03/18/24 22:00 03/18/24 22:00 Temperature 98.4 F 98.6 F Temperature Source Oral Oral Pulse Rate 74 72 Pulse Strength Normal (2+) Respiratory Rate 15 17 Respiratory Effort Respiratory Depth Respiratory Pattern Blood Pressure 196/91 H 202/104 H Blood Pressure Mean 126 136 Blood Pressure Source Monitor Monitor Blood Pressure Position Supine Supine Blood Pressure Location Right Arm Right Arm Pulse Ox 100 97 Oxygen Delivery Method Room Air Room Air 03/18/24 22:15 03/18/24 22:23 03/18/24 22:30 Temperature 97.7 F L 97.7 F L 97.9 F Temperature Source Axillary Axillary Oral Pulse Rate 69 65 78 Pulse Strength Respiratory Rate 16 15 23 H Respiratory Effort Respiratory Depth Respiratory Pattern Blood Pressure 207/101 H 207/101 H 189/91 H Blood Pressure Mean 136 136 123 Blood Pressure Source Monitor Monitor Blood Pressure Position Sitting Sitting Supine Blood Pressure Location Right Arm Right Arm Right Arm Pulse Ox 97 98 99 Oxygen Delivery Method Room Air Room Air Room Air 03/18/24 22:37 03/18/24 22:45 03/18/24 22:56 Temperature 98.8 F Temperature Source Oral Pulse Rate 71 78 Pulse Strength Respiratory Rate 18 Respiratory Effort Normal Non-Labored Respiratory Depth Normal Respiratory Pattern Normal Blood Pressure 189/91 H Blood Pressure Mean 123 Blood Pressure Source Monitor Blood Pressure Position Supine Blood Pressure Location Right Arm Pulse Ox 98 100 100 Oxygen Delivery Method Room Air Room Air 03/18/24 23:00 03/18/24 23:00 03/18/24 23:15 Temperature 98.8 F 97.8 F Temperature Source Oral Axillary Pulse Rate 77 79 84 Pulse Strength Respiratory Rate 25 H 19 H 18 Respiratory Effort Respiratory Depth Respiratory Pattern Blood Pressure 153/78 H 153/78 H 133/84 H Blood Pressure Mean 103 103 100 Blood Pressure Source Manual Blood Pressure Position Sitting Supine Blood Pressure Location Right Arm Right Arm Right Arm Pulse Ox 98 98 97 Oxygen Delivery Method Room Air 03/18/24 23:30 03/18/24 23:30 03/19/24 00:00 Temperature 98.1 F 98.1 F 98.8 F Temperature Source Temporal Oral Oral Pulse Rate 80 87 72 Pulse Strength Respiratory Rate 26 H 15 15 Respiratory Effort Respiratory Depth Respiratory Pattern Blood Pressure 149/87 H 149/87 H 142/70 H Blood Pressure Mean 107 107 94 Blood Pressure Source Monitor Monitor Blood Pressure Position Supine Supine Supine Blood Pressure Location Right Arm Right Arm Right Arm Pulse Ox 99 97 94 Oxygen Delivery Method Room Air Room Air 03/19/24 00:00 03/19/24 00:30 03/19/24 01:00 Temperature 98.1 F 97.8 F Temperature Source Temporal Temporal Pulse Rate 88 84 85 Pulse Strength Respiratory Rate 16 16 Respiratory Effort Respiratory Depth Respiratory Pattern Blood Pressure 142/70 H 135/67 H 139/80 H Blood Pressure Mean 94 89 99 Blood Pressure Source Monitor Monitor Blood Pressure Position Supine Supine Blood Pressure Location Right Arm Right Arm Pulse Ox 98 98 Oxygen Delivery Method Room Air Room Air 03/19/24 01:00 03/19/24 01:30 03/19/24 02:00 Temperature 98.8 F 97.7 F L 98.4 F Temperature Source Temporal Temporal Temporal Pulse Rate 84 70 80 Pulse Strength Respiratory Rate 18 14 14 Respiratory Effort Respiratory Depth Respiratory Pattern Blood Pressure 139/80 H 124/65 H 122/83 H Blood Pressure Mean 99 84 96 Blood Pressure Source Monitor Monitor Monitor Blood Pressure Position Supine Supine Supine Blood Pressure Location Right Arm Right Arm Right Arm Pulse Ox 98 97 98 Oxygen Delivery Method Room Air Room Air Room Air 03/19/24 02:00 03/19/24 02:00 03/19/24 02:30 Temperature 98.3 F 98.6 F Temperature Source Temporal Temporal Pulse Rate 74 71 78 Pulse Strength Respiratory Rate 14 15 Respiratory Effort Normal Non-Labored Respiratory Depth Normal Respiratory Pattern Normal Blood Pressure 122/83 H 140/70 H Blood Pressure Mean 96 93 Blood Pressure Source Monitor Blood Pressure Position Supine Supine Blood Pressure Location Left Arm Right Arm Pulse Ox 94 98 97 Oxygen Delivery Method Room Air Room Air 03/19/24 02:49 03/19/24 03:00 03/19/24 03:00 Temperature 97.8 F 97.8 F Temperature Source Temporal Temporal Pulse Rate 75 71 70 Pulse Strength Respiratory Rate 15 15 Respiratory Effort Respiratory Depth Respiratory Pattern Blood Pressure 141/66 H 136/72 H 136/72 H Blood Pressure Mean 91 93 93 Blood Pressure Source Monitor Blood Pressure Position Supine Supine Blood Pressure Location Right Arm Right Arm Pulse Ox 99 98 96 Oxygen Delivery Method Room Air 03/19/24 03:30 03/19/24 04:00 03/19/24 04:00 Temperature 97.8 F 97.9 F 98.8 F Temperature Source Temporal Temporal Temporal Pulse Rate 73 77 74 Pulse Strength Respiratory Rate 15 16 16 Respiratory Effort Respiratory Depth Respiratory Pattern Blood Pressure 128/70 H 123/65 H 128/70 H Blood Pressure Mean 89 84 89 Blood Pressure Source Monitor Monitor Blood Pressure Position Supine Supine Blood Pressure Location Right Arm Right Arm Pulse Ox 96 98 98 Oxygen Delivery Method Room Air Room Air 03/19/24 04:15 03/19/24 04:30 03/19/24 04:30 Temperature 98.7 F Temperature Source Temporal Pulse Rate 76 72 70 Pulse Strength Respiratory Rate 16 Respiratory Effort Respiratory Depth Respiratory Pattern Blood Pressure 125/65 H 120/68 136/71 H Blood Pressure Mean 85 85 92 Blood Pressure Source Monitor Blood Pressure Position Supine Blood Pressure Location Right Arm Pulse Ox 98 Oxygen Delivery Method Room Air 03/19/24 04:45 03/19/24 05:00 03/19/24 05:00 Temperature 97.8 F Temperature Source Temporal Pulse Rate 69 82 79 Pulse Strength Respiratory Rate 14 16 Respiratory Effort Respiratory Depth Respiratory Pattern Blood Pressure 141/72 H 136/74 H 136/74 H Blood Pressure Mean 95 94 94 Blood Pressure Source Monitor Blood Pressure Position Supine Blood Pressure Location Right Arm Pulse Ox 97 97 Oxygen Delivery Method Room Air 03/19/24 05:45 03/19/24 06:00 03/19/24 06:08 Temperature 98.7 F 98.7 F Temperature Source Oral Oral Pulse Rate 76 83 83 Pulse Strength Respiratory Rate 15 15 Respiratory Effort Respiratory Depth Respiratory Pattern Blood Pressure 113/64 160/93 H 160/93 H Blood Pressure Mean 80 115 115 Blood Pressure Source Monitor Monitor Blood Pressure Position Supine Supine Blood Pressure Location Right Arm Right Arm Pulse Ox 96 96 Oxygen Delivery Method Room Air Room Air 03/19/24 06:30 03/19/24 06:47 03/19/24 07:00 Temperature 98.1 F Temperature Source Temporal Pulse Rate 71 84 66 Pulse Strength Respiratory Rate 18 14 Respiratory Effort Respiratory Depth Respiratory Pattern Blood Pressure 162/78 H 166/86 H 152/71 H Blood Pressure Mean 106 112 98 Blood Pressure Source Monitor Monitor Blood Pressure Position Semi-Fowlers Supine Blood Pressure Location Right Arm Right Arm Pulse Ox 92 96 Oxygen Delivery Method Room Air Room Air 03/19/24 07:47 03/19/24 08:47 03/19/24 09:47 Temperature Temperature Source Pulse Rate 83 74 78 Pulse Strength Respiratory Rate 18 18 14 Respiratory Effort Respiratory Depth Respiratory Pattern Blood Pressure 113/71 118/59 L 134/58 H Blood Pressure Mean 85 78 83 Blood Pressure Source Monitor Monitor Monitor Blood Pressure Position Semi-Fowlers Semi-Fowlers Semi-Fowlers Blood Pressure Location Right Arm Right Arm Right Arm Pulse Ox 97 98 98 Oxygen Delivery Method Room Air Room Air Room Air 03/19/24 10:00 03/19/24 10:00 03/19/24 10:47 Temperature Temperature Source Pulse Rate 74 Pulse Strength Normal (2+) Respiratory Rate 15 Respiratory Effort Respiratory Depth Respiratory Pattern Blood Pressure 144/69 H Blood Pressure Mean 94 Blood Pressure Source Monitor Blood Pressure Position Semi-Fowlers Blood Pressure Location Right Arm Pulse Ox 98 100 Oxygen Delivery Method Room Air Room Air Weight Weight: 70.1 kg Body Mass Index (BMI) 28.3 EEG Results Procedure Details EEG Procedure Details: TORI SCHWARTZ is a 83 year old F with a past medical history of , who presents for evaluation of Electroencephalogram on DATE at TIME NIHSS NIHSS Nursing Documentation NIHSS Nursing Documentation: Thrombolytic: Vital Signs & NIHSS Start: 03/18/24 20:28 Text: Assess and document vital signs and NIHSS Status: Complete within 15 minutes of tenecteplase bolus administration Freq: [id number],Q2H Protocol: Activity Type Activity Date Activity User E-sign Co-sign Detail Recorded Client Recorded Date Recorded By Document 03/18/24 21:30 EM desktop 03/18/24 21:33 EM 03/18/24 21:30 Vital Signs [Pulse] -Pulse Rate (60-100) 75 -Pulse Location Monitor [Respirations] -Respiratory Rate (12-18) 18 -Respiratory rate source Monitor -Pulse Oximetry 97 [Blood Pressure] -Blood Pressure (90/60-120/80) 201/91 H -Blood Pressure Mean 127 -Source Monitor -Position Sitting -Blood Pressure Location Right Arm -Is the SBP > or = 180 Yes -Is the DBP > or = 105 No NIH Stroke Scale [NIHSS] A score of 0 is normal or asymptomatic . Total possible score is 42. Inpatient: RN or Physician to activate a stroke alert for onset of new stroke symptoms or with NIHSS increase >/= 3 points. Following change in neurological status, NIHSS will be performed per physician order or more frequently PRN. -1a. Level of Consciousness Alert; keenly responsive -1b. LOC Questions Answers BOTH questions correctly. -1c. LOC Commands Performs both tasks correctly . -2. Best Gaze Normal -3. Visual No visual loss -4. Facial Palsy Normal symmetrical movements -5a. Left Arm No drift; arm holds 90 (or 45 ) degrees for full 10 seconds -5b. Right Arm No effort against gravity ; arm falls -6a. Left Leg No drift; leg holds 30-degree position for full 5 seconds -6b. Right Leg No effort against gravity ; leg falls to bed immediately -7. Limb Ataxia Absent -8. Sensory Normal; no sensory loss -9. Best Language No aphasia; normal -10. Dysarthria Normal -11. Extinction and Inattention No abnormality -Total 6 Query Text:A score of 0 is normal or asymptomatic. Total possible score is 42 . ED: Notify Physician for NIHSS increase by > / = 3 points. Inpatient: RN or Physician to activate a stroke alert for NIHSS increase of > / = 3 points. Thrombolytic: Vital Signs & NIHSS Start: 03/18/24 21:47 Text: Assess and document vital signs and NIHSS Status: Active within 15 minutes prior to Tenecteplase administration Freq: [id number],Q2H Protocol: Activity Type Activity Date Activity User E-sign Co-sign Detail Recorded Client Recorded Date Recorded By Document 03/19/24 10:47 LW [id number] 03/19/24 10:59 LW 03/19/24 10:47 Vital Signs [Pulse] -Pulse Rate (60-100) 74 -Pulse Location Monitor [Respirations] -Respiratory Rate (12-18) 15 -Respiratory rate source Monitor -Pulse Oximetry 100 -Oxygen Delivery Method Room Air [Blood Pressure] -Blood Pressure (90/60-120/80) 144/69 H -Blood Pressure Mean 94 -Source Monitor -Position Semi-Fowlers -Blood Pressure Location Right Arm -Is the SBP > or = 180 No -Is the DBP > or = 105 No NIH Stroke Scale [NIHSS] A score of 0 is normal or asymptomatic . Total possible score is 42. Inpatient: RN or Physician to activate a stroke alert for onset of new stroke symptoms or with NIHSS increase >/= 3 points. Following change in neurological status, NIHSS will be performed per physician order or more frequently PRN. -1a. Level of Consciousness Alert; keenly responsive -1b. LOC Questions Answers BOTH questions correctly. -1c. LOC Commands Performs both tasks correctly . -2. Best Gaze Normal -3. Visual No visual loss -4. Facial Palsy Minor paralysis (flattened nasolabial fold , asymmetry on smiling) -5a. Left Arm No drift; arm holds 90 (or 45 ) degrees for full 10 seconds -5b. Right Arm No effort against gravity ; arm falls -6a. Left Leg No drift; leg holds 30-degree position for full 5 seconds -6b. Right Leg No effort against gravity ; leg falls to bed immediately -7. Limb Ataxia Absent -8. Sensory Normal; no sensory loss -9. Best Language No aphasia; normal -10. Dysarthria Normal -11. Extinction and Inattention No abnormality -Total 7 Query Text:A score of 0 is normal or asymptomatic. Total possible score is 42 . ED: Notify Physician for NIHSS increase by > / = 3 points. Inpatient: RN or Physician to activate a stroke alert for NIHSS increase of > / = 3 points. Lab / Micro Data 03/19/24 04:31 03/19/24 04:31 Labs: Laboratory Results - last 24 hr 03/18/24 19:45: WBC 6.3, RBC 4.72, Hgb 14.2, Hct 41.1, MCV 87.1, MCH 30.1, MCHC 34.5, RDW Std Deviation 39.6, RDW Coeff of Belkys 12.5, Plt Count 256, MPV 10.5, Immature Gran % (Auto) 0.200, Neut % (Auto) 54.1, Lymph % (Auto) 32.2, Spink % (Auto) 11.1 H, Eos % (Auto) 1.3, Baso % (Auto) 1.1 H, Absolute Neuts (auto) 3.4, Absolute Lymphs (auto) 2.04, Nucleated RBC % 0, PT 12.4, INR 0.9, APTT 29.4, Sodium 134 L, Potassium 3.3 L, Chloride 102, Carbon Dioxide 24.0, Anion Gap 8, BUN 16, Creatinine 0.98, Estim Creat Clear Calc 38.31, Est GFR (MDRD) Af Amer 70, Est GFR (MDRD) Non-Af 58 L, BUN/Creatinine Ratio 16.4, Glucose 124 H, Calcium 8.7, Magnesium 2.2, Troponin I High Sens 8 03/18/24 19:59: POC Glucose 126 H 03/19/24 04:31: WBC 9.3, RBC 4.74, Hgb 13.8, Hct 41.6, MCV 87.8, MCH 29.1, MCHC 33.2, RDW Std Deviation 40.7, RDW Coeff of Belkys 12.5, Plt Count 261, MPV 10.1, Immature Gran % (Auto) 0.300, Neut % (Auto) 75.8 H, Lymph % (Auto) 15.0 L, Spink % (Auto) 7.8, Eos % (Auto) 0.5, Baso % (Auto) 0.6, Absolute Neuts (auto) 7.1, Absolute Lymphs (auto) 1.40, Nucleated RBC % 0, Sodium 137, Potassium 3.6, Chloride 107, Carbon Dioxide 22.0, Anion Gap 8, BUN 12, Creatinine 0.83, Estim Creat Clear Calc 47.62, Est GFR (MDRD) Af Amer 85, Est GFR (MDRD) Non-Af 70, BUN/Creatinine Ratio 14.5, Glucose 122 H, Hemoglobin A1c 5.8 H, Calcium 8.2 L, Total Bilirubin 0.30, AST 25, ALT 22, Alkaline Phosphatase 59, Total Protein 6.7, Albumin 3.4, Globulin 3.3, Albumin/Globulin Ratio 1.0, Triglycerides 96, Cholesterol 208 H, LDL Cholesterol 131 H, VLDL Cholesterol 19, HDL Cholesterol 58, TSH 2.36 Imaging Radiology Impression Brain CT 03/18/24 20:01 IMPRESSION: No acute disease Electronically Signed: John Cortes MD at 20:16 EDT Reading Location ID and State: [address] [place] [address] Tel , Service support , ADDENDUM: 03/18/242027 IMPRESSION: No acute disease N.B. : The above Results were Read Back by John Cortes MD to Shamir Richard , , and understanding confirmed on 03/18/2024 20:21:25 (ET). Electronically Signed: John Cortes MD at 20:16 EDT Reading Location ID and State: [address] [place] [address] Tel , Service support , Head/Neck CTA 03/18/24 20:01 IMPRESSION: Right greater than left cavernous carotid artery stenoses as above. Bilateral vertebral artery stenoses as above. Sensitivity limited without 3-D reformats. N.B. : The above Results were Read Back by John Cortes MD to Shamir Richard , , and understanding confirmed on 03/18/2024 20:44:23 (ET). Electronically Signed: John Cortes MD at 20:45 EDT Reading Location ID and State: 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 Bilateral vertebral artery stenoses as above. Sensitivity limited without 3-D reformats. N.B. : The above Results were Read Back by John Cortes MD to Shamir Richard DO, and understanding confirmed on 03/18/2024 20:44:23 (ET). Electronically Signed: John Cortes MD at 20:45 EDT Reading Location ID and State: [facility] / [place] Tel , Service support , Chest X-Ray 03/18/24 20:50 IMPRESSION: Normal x-ray examination of the chest. Electronically Signed: John Cortes MD at 22:23 EDT , Carotid Duplex 03/18/24 21:47 Interpretation Summary Smooth plaque noted within the right common carotid artery with irregular calcific plaque with shadowing at the proximal right internal carotid artery. Less than 50% stenosis of the right internal carotid artery. Notation is made that the distal right internal carotid artery was difficult to image Less than 50% stenosis right external carotid artery Smooth plaque noted in the left common carotid artery with irregular plaque with a degree of calcific shadowing at the proximal left internal carotid artery and less than 50% stenosis. Less than 50% stenosis left external carotid artery Patent and antegrade vertebral arteries bilaterally Ordering Physician: Asmita Oseguera Referring Physician: Radha Campbell Performed By: Ayaan Veloz, T Active Medications Active Medications Active Medications: Current Medications Generic Name Dose Route Start Last Admin Trade Name Freq PRN Reason Stop Dose Admin Acetaminophen 650 mg 03/18/24 21:47 Acetaminophen 325 Mg Tablet PO Q4H PRN PRN Fever, pain 1-07/29 Al Hydroxide/Mg Hydroxide 30 ml 03/18/24 21:47 Mag Hydrox/Al Hydrox/Simeth 30 Ml Udc PO Q6H PRN PRN Gastric Burning Albuterol Sulfate 2.5 mg 03/18/24 21:47 Albuterol 2.5 Mg/3 Ml Vial.Neb. INHALATION Q2H PRN PRN Dyspnea, wheezing Atorvastatin Calcium 40 mg 03/18/24 22:00 03/18/24 22:10 Atorvastatin Calcium 40 Mg Tablet PO 40 mg QHS SAL Administration Diphenhydramine HCl 50 mg 03/18/24 21:47 Diphenhydramine 50 Mg/Ml Syringe IV X1 PRN Allergic Reaction Epinephrine HCl 0.3 mg 03/18/24 21:47 Epi Pen (Equiv) 0.3 Mg Syringe IM 03/19/24 20:57 X1 PRN Alleric Reaction Guaifenesin 10 ml 03/18/24 21:47 Guaifenesin 10 Ml Udc (200mg/10ml) PO Q4H PRN PRN COUGH Sodium Chloride 1,000 mls @ 100 mls/hr 03/18/24 21:47 03/19/24 10:37 IV 03/19/24 12:46 0 mls/hr .Q10H SAL Infusion Famotidine 20 mg/ Sodium 10 mls @ 300 mls/hr 03/18/24 21:47 Chloride IV X1 PRN Allergic Reaction Sodium Chloride 250 mls @ 15 mls/hr 03/18/24 21:55 IV .[id number] PRN Saline Flush Sodium Chloride 250 mls @ 15 mls/hr 03/18/24 21:55 IV .[id number] PRN Additional IVPB Infusion Nicardipine HCl 25 mg/ Sodium 250 mls @ 50 mls/hr 03/18/24 22:11 03/19/24 06:30 Chloride IV 0 mg/hr Q4H PRN 0 mls/hr See Instructions Titration Protocol 5 MG/HR Labetalol HCl 20 mg 03/18/24 21:47 03/18/24 22:02 Labetalol (Prefilled) 20 Mg/4 Ml IV 03/19/24 21:47 20 mg X1 PRN Administration BP Goals Melatonin 3 mg 03/18/24 21:47 Melatonin 3 Mg Tablet PO QHS PRN PRN INSOMNIA Methylprednisolone 125 mg 03/18/24 21:47 Methylprednisolone 125 Mg/2 Ml Vial IV X1 PRN Allergic Reaction Ondansetron HCl 4 mg 03/18/24 21:47 Ondansetron 4 Mg/2 Ml Vial IV Q8H PRN PRN NAUSEA/VOMITING Prochlorperazine Edisylate 5 mg 03/18/24 21:47 Prochlorperazine 10 Mg/2 Ml Vial IV Q4H PRN PRN Breakthrough Nausea/Vomiting Senna/Docusate Sodium 2 tablet 03/18/24 21:47 Senna/Docusate Sodium 1 Tablet PO BID PRN PRN Constipation Sodium Chloride 10 ml 03/18/24 21:47 0.9% Saline Lock 10 Ml Syringe IV UD PRN Before/After Tenecteplase Administration Sodium Chloride 10 - 40 ml 03/18/24 21:55 0.9% Saline Lock 10 Ml Syringe IV UD PRN SALINE FLUSH
--- NOTE | 2024-03-19 12:44 | CASEMGMT ---
Social Work Pt completed PHQ-9 w/SW, pt scored a 0, not indicating depressive symptoms at this time. CE Mckeon
--- NOTE | 2024-03-19 12:45 | CASEMGMT ---
Social Work Pt requested to complete LW/POA documents. Pt completed both healthcare POA and Living Will forms, SW gave pt originals and copies, and a copy was placed on the chart. Daughter Taylor was present, pt named Taylor as healthcare POA. SW also spoke w/pt about discharge plan. SW provided to pt and daughter lists of both fpc facilities and acute rehab facilities from [facility], in pt's insurance network, preferred geographic area, and complete w/quality and resource use data. SW educated dtr and pt about the SNF and acute rehab levels of care, SW explained also the process of referral, then acceptance, then getting precert from insurance. SW explained to them there is no guarantee insurance would cover acute rehab, though pt does have a qualifying diagnosis. Both state understanding. Pt would like to go to inpt rehab at [facility]. SW will make referral when appropriate. SW will continue to follow. CE Mckeon
[2024-03-19] MEDS: 0.9% Saline Lock 10 ML Syringe IV (18:07)
[2024-03-19] MEDS: Labetalol (Compound) 20 MG/4 ML SYRINGE IV (18:08)
--- NOTE | 2024-03-19 21:22 | CT_ITS ---
INDICATION: s/p TNK, 24 hour follow-up CT EXAMINATION: CT BRAIN - CT Head or Brain W/O Contrast Injection TECHNIQUE: Serial CT axial images were obtained of the head without intravenous contrast. A radiation dose optimization technique was used for this scan. RADIATION DOSAGE (If Supplied By Facility): CTDIvol/DLP = ( 44.99 ) / ( 779.24 ) mGy/mGycm COMPARISON: Head CT previous day 2003 hours. Findings: Serial CT axial images of the head without contrast. BRAIN PARENCHYMA: Diffuse periventricular hypoattenuation likely chronic white matter ischemic changes. Moderate diffuse volume loss. No evidence of intraparenchymal hemorrhage or hyperattenuating extra-axial fluid collection. VASCULAR STRUCTURES: Atherosclerotic vascular calcifications. BONES: Paranasal sinuses are clear. SCALP/REMAINING SOFT TISSUES: Unremarkable. ASPECTS Score for Acute Strokes, if applicable: 10 CT/Brain/Head without Contrast IMPRESSION: Age-related changes as above, without evidence of acute intracranial hemorrhage in this noncontrast head CT. Electronically Signed: Gatito Duenas MD at 22:37 EDT ,
[2024-03-19] MEDS: Atorvastatin Calcium 40 MG Tablet PO (21:48)
[2024-03-20] VITALS (20 sets, daily range): BP systolic 123–190; BP diastolic 62–103; PULSE 66–88; RESP 13–20; TEMP 36.4–36.8; O2SAT 94–100; BMI 28.3
[2024-03-20] MEDS: NICARdipine 25 MG in 0.9% Normal Saline (250mL Bag) 240 ML 25 ML IV (00:19)
[2024-03-20 04:53] LABS: Hematocrit 43.9 % (37-47); Hemoglobin 14.7 g/dL (12.0-15.0); Mean Corp Hgb Conc 33.5 g/dL (32-36); Mean Corpuscular Hgb 29.6 pg (27.0-32.0); Mean Corpuscular Volume 88.5 fL (81-99); Mean Platelet Vol. 10.6 fl (6.2-12.0); Platelet Count 266 K/mm3 (150-450); RBC Distribution Width CV 12.9 % (11.6-14.6); RBC Distribution Width SD 41.7 fl (35.1-43.9); Red Blood Count 4.96 M/mm3 (4.2-5.4); White Blood Count 8.9 K/mm3 (4.4-11.0)
[2024-03-20 05:15] LABS: Anion Gap 8 (5-15); BUN 11 mg/dL (7-18); BUN/Creat Ratio 12.2 RATIO (10-20); Chloride 105 mmol/L (98-107); EST Glomerular Filtration Rate 64 mL/min (>60); Est Glom Filt Rate - Afr Amer 77 mL/min (>60); Estimated Creatinine Clearance 43.44 ml/min; Glucose 119 mg/dL (74-106); Potassium 4.5 mmol/L (3.5-5.1); Sodium Level 135 mmol/L (136-145)
[2024-03-20] MEDS: Labetalol (Compound) 20 MG/4 ML SYRINGE IV ×3 (07:22→23:34)
--- NOTE | 2024-03-20 08:22 | PN.HOSP_ITS ---
Reason for Visit Reason for Visit: Diagnoses Hyperlipidemia, unspecified (03/18/24) Hypokalemia (03/18/24) Cerebral infarction, unspecified (03/18/24) Occlusion and stenosis of unspecified carotid artery (03/18/24) Hyperglycemia, unspecified (03/18/24) Objective Data Objective Data Vital Signs: Vital Signs Temp Pulse Resp BP Pulse Ox O2 Del Method 98.2 F 78 18 184/79 H 97 Room Air 03/20/24 04:00 03/20/24 07:00 03/20/24 07:00 03/20/24 07:00 03/20/24 07:00 03/20/24 07:00 Oxygen Delivery Method Room Air Weight: 154 lb 5.177 oz Body Mass Index (BMI) 28.3 Intake & Output: Intake and Output for Last 24 Hours 03/18/24 03/19/24 03/20/24 23:59 23:59 23:59 Intake Total 202.50 / 202.50 2870.41 / 2895.41 125.00 / 125.00 Output Total 1400 / 1400 4175 / 4175 350 / 350 Balance -1197.50 / -1197.50 -1304.59 / -1279.59 -225.00 / -225.00 Lab / Micro Data 03/20/24 04:40 03/20/24 04:40 Labs: Laboratory Results - last 24 hr 03/20/24 04:40: WBC 8.9, RBC 4.96, Hgb 14.7, Hct 43.9, MCV 88.5, MCH 29.6, MCHC 33.5, RDW Std Deviation 41.7, RDW Coeff of Belkys 12.9, Plt Count 266, MPV 10.6, S odium 135 L, Potassium 4.5, Chloride 105, Carbon Dioxide 22.0, Anion Gap 8, BUN 11, Creatinine 0.90, Estim Creat Clear Calc 43.44, Est GFR (MDRD) Af Amer 77, Est GFR (MDRD) Non-Af 64, BUN/Creatinine Ratio 12.2, Glucose 119 H, Calcium 9.0 Radiography Diagnostic Testing: Radiology Impression Head/Neck CTA 03/18/24 20:01 IMPRESSION: Right greater than left cavernous carotid artery stenoses as above. Bilateral vertebral artery stenoses as above. Sensitivity limited without 3-D reformats. N.B. : The above Results were Read Back by John Cortes MD to Shamir Richard DO, and understanding confirmed on 03/18/2024 20:44:23 (ET). Electronically Signed: John Cortes MD at 20:45 EDT Reading Location ID and State: [address] [place] [address] Tel , Service support , ADDENDUM: 03/18/242051 IMPRESSION: Right greater than left cavernous carotid artery stenoses as above. Bilateral vertebral artery stenoses as above. Sensitivity limited without 3-D reformats. N.B. : The above Results were Read Back by John Cortes MD to Shamir Richard DO, and understanding confirmed on 03/18/2024 20:44:23 (ET). Electronically Signed: John Cortes MD at 20:45 EDT Reading Location ID and State: [address] [place] [address] Tel , Service support , Carotid Duplex 03/18/24 21:47 Interpretation Summary Smooth plaque noted within the right common carotid artery with irregular calcific plaque with shadowing at the proximal right internal carotid artery. Less than 50% stenosis of the right internal carotid artery. Notation is made that the distal right internal carotid artery was difficult to image Less than 50% stenosis right external carotid artery Smooth plaque noted in the left common carotid artery with irregular plaque with a degree of calcific shadowing at the proximal left internal carotid artery and less than 50% stenosis. Less than 50% stenosis left external carotid artery Patent and antegrade vertebral arteries bilaterally Ordering Physician: Asmita Oseguera Referring Physician: Radha Campbell Performed By: Ayaan Veloz, RVT Echocardiogram 03/18/24 21:47 Interpretation Summary The estimated ejection fraction is 55-60 %. Ordering Physician: Asmita Oseguera Referring Physician: Asmita Oseguera Performed By: Luciana Adams and Student Brain CT 03/19/24 21:22 IMPRESSION: Age-related changes as above, without evidence of acute intracranial hemorrhage in this noncontrast head CT. Electronically Signed: Gatito Duenas MD at 22:37 EDT , Physical Exam Narrative Seen and examined. Patient admitted with acute also right-sided hemiparesis status post tenecteplase in ICU. Right-sided weakness is improving. No acute change in language, no dysarthria or dysphagia. Physical exam General: Alert, Oriented x3, Cooperative HEENT: Atraumatic, PERRLA, EOMI, Normocephalic Oral: No Gingival or Mucosal Lesions/ Ulcerations Neck: Supple, No JVD, Negative Carotid Bruits Chest wall/Lungs: Air entry diminished in bilateral lung bases. No crepitation/rhonchi Cardiovascular: Regular rate, Regular Rhythm, Normal S1, Normal S2, No M/G/R Abdomen: Bowel Sounds Present, Soft, Non Tender, Non-Distended : No dysuria. No renal angle tenderness. No suprapubic tenderness. Extremities: No edema, Capillary Refill Less than 3 Seconds Skin: No rashes, No breakdown Musculoskeletal: No Tenderness to Palpation of Joints or Extremities Neurological: Right-sided nasolabial sulcus flat. Right-sided weakness, NIH 3. Psych/Mental Status: Normal Affect, Appropriate. Assessment & Plan Assessment/Plan (1) Stroke: (2) Carotid artery stenosis: (3) Hyperlipidemia: (4) Hypokalemia: (5) Hyperglycemia: PLAN: Plan 83-year-old female was admitted with acute sudden onset of dizziness followed by right-sided upper and lower extremity weakness causing mechanical fall. 1. Acute ischemic stroke suspected left MCA infarct: Patient was admitted in ICU after tenecteplase given about 2030 hrs. on 03/18/2024. Patient was hypotensive, BP 250/110, improved to 190/100. NIH stroke scale variable 7-9. CTA without proximal LVO, bilateral ICA 50 to 69% with moderate vertebral artery stenosis. Carotid duplex less than 50%, bilateral ICA. 03/20: Patient evaluated by [facility] neurologist. Currently NIH stroke scale 3. MRI pending in the morning today. 2D echo was done and reported bubble contrast study negative for PFO/ASD. Normal left atrium. EF 55 to 60%. Blood pressure is controlled. Lipid profile shows total cholesterol 208, LDL 131. On atorvastatin 40 mg daily. 2. Hypokalemia: Resolved. 3. Hyperglycemia -Fasting glucose this morning is 122 and was 124 at the time of admission -Hemoglobin A1c is 5.8, suggestive of prediabetes 4. Carotid artery stenosis/vertebral artery stenosis -Moderate noted on CTA. No LVO -Continue statin 5. Dyslipidemia -Total cholesterol 208 with an LDL of 131 HDL 58 -Continue statin 40 mg daily 6. Hypertension, uncontrolled: Patient was given intermittent labetalol and IV nicardipine drip in ICU. BP control as per stroke guidelines. Currently off nicardipine drip. 7 DVT prophylaxis -SCDs -Start chemoprophylaxis if CT is negative at 24 hours post tenecteplase CODE STATUS -Full code Charges/Coding Visit Charges Inpatient E&M: 11332 Subs Hosp L3
--- NOTE | 2024-03-20 10:00 | MRI_ITS ---
ACR Level 3 findings have been noted. An addendum which confirms receipt of the report will follow. HISTORY: CVA -- MRI 24 hours after IV thrombolytic administration, RT SIDED WEAKNESS. TECHNIQUE: Multiplanar and multisequence MR images of the brain were obtained without contrast. 292 images. COMPARISON: CT prior day. FINDINGS: BRAIN PARENCHYMA: Small zone of restricted diffusion extending from the left ivory radiata the basal ganglia. Mild foci of increased T2 FLAIR signal in the bilateral white matter. No acute intracranial hemorrhage identified. CSF SPACES: Mild volume loss. No significant midline shift or other mass effect.No extra-axial fluid collection. VASCULAR SYSTEM: Major intracranial flow voids are maintained. PARANASAL SINUSES AND MASTOID AIR CELLS: No significant air fluid levels. ORBITS: Symmetric contents. MRI/Brain without Contrast IMPRESSION: Small acute left periventricular infarct extending into the basal ganglia. Chronic involutional and white matter changes. Electronically Signed: Alexia Amaral MD at 11:14 EDT ,
[2024-03-20] MEDS: Atenolol 50 MG Tablet PO (11:57)
[2024-03-20] MEDS: hydroCHLOROthiazide 25 MG Tablet PO (11:57)
[2024-03-20] MEDS: 0.9% Saline Lock 10 ML Syringe IV (17:30)
[2024-03-20] MEDS: Enoxaparin 40 MG/0.4 ML Syringe SC (17:31)
[2024-03-20] MEDS: Atorvastatin Calcium 80 MG Tablet PO (22:00)
[2024-03-21] VITALS (7 sets, daily range): BP systolic 150–182; BP diastolic 69–89; PULSE 66–77; RESP 16–18; TEMP 36.4–37.2; O2SAT 94–99; BMI 28.5
[2024-03-21 05:44] LABS: Absolute Lymphocyte Count 1.92 X10^3/uL (0.83-4.51); Absolute Neutrophil Count 4.8 X10^3/uL (2.0-7.7); Basophil# 0.04 X10^3/uL; Basophil% 0.5 % (0-1); Eosinophils% 1.3 % (0-5); Hematocrit 41.5 % (37-47); Hemoglobin 13.5 g/dL (12.0-15.0); Lymphocyte # 1.92 X10^3/ul (0.83-4.51); Lymphocyte % 25.2 % (19-41); Mean Corp Hgb Conc 32.5 g/dL (32-36); Mean Corpuscular Volume 89.2 fL (81-99); Mean Platelet Vol. 10.6 fl (6.2-12.0); Monocyte# 0.72 X10^3/uL; Monocyte% 9.4 % (0-10); NRBC Flagged by Analyzer 0 % (0-5); Neutrophil # 4.83 X10^3/uL (2.7-7.7); Neutrophil % 63.3 % (47-70); Platelet Count 250 K/mm3 (150-450); RBC Distribution Width CV 12.7 % (11.6-14.6); RBC Distribution Width SD 41.6 fl (35.1-43.9); Red Blood Count 4.65 M/mm3 (4.2-5.4); White Blood Count 7.6 K/mm3 (4.4-11.0)
[2024-03-21 06:05] LABS: Anion Gap 9 (5-15); BUN 17 mg/dL (7-18); BUN/Creat Ratio 18.4 RATIO (10-20); Calcium,Total 8.9 mg/dL (8.5-10.1); Chloride 99 mmol/L (98-107); Creatinine, Serum 0.93 mg/dL (0.55-1.02); EST Glomerular Filtration Rate 61 mL/min (>60); Est Glom Filt Rate - Afr Amer 74 mL/min (>60); Estimated Creatinine Clearance 42.01 ml/min; Glucose 108 mg/dL (74-106); Potassium 3.5 mmol/L (3.5-5.1); Sodium Level 131 mmol/L (136-145)
[2024-03-21] MEDS: Atenolol 50 MG Tablet PO (08:56)
[2024-03-21] MEDS: hydroCHLOROthiazide 25 MG Tablet PO (08:56)
[2024-03-21] MEDS: Aspirin E.C. 81 MG Tablet PO (08:56)
[2024-03-21] MEDS: Enoxaparin 40 MG/0.4 ML Syringe SC (08:57)
--- NOTE | 2024-03-21 10:34 | STROKE.CONS ---
Assessment and Plan: Stroke Assessment/Plan Tori Wade is a 83 yo F with PMH of HTN, PAD, not on AC/AP, on estrogen/progesterone who presented on 03/18 for acute stroke like symptoms. She had sudden onset dizziness while cleaning and vacuuming followed by right-sided upper and lower extremity weakness that caused a mechanical fall. EMS was called and patient was noted to by hypertensive to 250/110, improved to 190/100 without intervention. On arrival NIHSS was fluctuating from complete resolution of symptoms NIHSS 0 to RUE/RLE weakness and paresthesias with NIHSS 5. Stroke alerted and given TNK at 20:30 on 03/18. On examination 03/20 NIHSS 9 for R facial (1), RUE plegia (4), RLE paresis (3), Sensory deficit on R (1). On examination today 03/21 NIHSS has improved to 3 for RUE drift (1), RLE (1), R dysmetria (1). States R leg is numb but that is chronic issue. Facial droop resolved and dramatic improvement in R sided weakness. CTH non acute. CTA without proximal LVO, and BL ICAD 50-69% stenosis, and moderate vertebral artery stenosis BL per report. Carotid Duplex with BL ICAD with < 50%. MRI with L Periventricular Acute CVA. TTE without PFO, CE source, EF 55-60%. LDL 131. A1C pending. Post TNK CTH stable. IMPRESSION: The patient's constellation of signs and symptoms and neuroimaging findings are most consistent with acute ischemic stroke. She is s/p TNK, but unfortunately remains symptomatic. MRI is still pending. - Stroke Etiology: cryptogenic, risk factors include HTN, HLD, ICAD, and hormone replacement therapy RECOMMENDATIONS: - Remains in ICU - Post IV TNK order set - Post TNK BP goal < 180/105, allow for gradual normotension - post TNK [address] Scan completed - Please follow up Hgb A1C, and ensure cardiac monitoring/holter monitor for discharge - Occupational/Physical therapy - OK for DVT ppx - Anti-platelet medication : Aspirin 81 mg daily - Continue high intensity statin (atorvastatin 80 mg) for HLD (LDL 131) -??Recommend vascular risk factor modification with goal LDL < 70, blood pressure control, glycemic control, and weight management. Promote lifestyle modification with weight control, physical activity, moderate alcohol, moderate sodium intake. Counseled on hormone replacement therapy Follow up with PCP 1-2 weeks, and Neurology in 6-12 weeks. HPI Consult Data Date of Consult: 03/21/24 HPI Narrative HPI Narrative: Tori Wade is a 83 yo F with PMH of HTN, PAD, not on AC/AP, on estrogen/progesterone who presented on 03/18 for acute stroke like symptoms. She had sudden onset dizziness while cleaning and vacuuming followed by right-sided upper and lower extremity weakness that caused a mechanical fall. EMS was called and patient was noted to by hypertensive to 250/110, improved to 190/100 without intervention. On arrival NIHSS was fluctuating from complete resolution of symptoms NIHSS 0 to RUE/RLE weakness and paresthesias with NIHSS 5. Stroke alerted and given TNK at 20:30 on 03/18. On examination 03/20 NIHSS 9 for R facial (1), RUE plegia (4), RLE paresis (3), Sensory deficit on R (1). On examination today 03/21 NIHSS has improved to 3 for RUE drift (1), RLE (1), R dysmetria (1). States R leg is numb but that is chronic issue. Facial droop resolved and dramatic improvement in R sided weakness. CTH non acute. CTA without proximal LVO, and BL ICAD 50-69% stenosis, and moderate vertebral artery stenosis BL per report. Carotid Duplex with BL ICAD with < 50%. MRI with L Periventricular Acute CVA. TTE without PFO, CE source, EF 55-60%. LDL 131. A1C pending. Post TNK CTH stable. PFSH Medical History (Updated 03/19/24 @ 07:[address] Irene Engel, DO) Hypertension Home Medications ?Medication ?Instructions ?Recorded ?Last Taken ?Type atenolol 50 mg tablet 50 mg PO DAILY 03/18/24 Unknown History conj estrogen-medroxyprogesterone 1 tab PO DAILY 03/18/24 Unknown History 0.625 mg-2.5 mg tablet (Prempro) hydrochlorothiazide 50 mg tablet 50 mg PO DAILY 03/18/24 Unknown History Allergy/AdvReac Type Severity Reaction Status Date / Time No Known Allergies Allergy Verified 03/18/24 20:49 Family History (Updated 03/18/24 @ 21:[address] Asmita Oseguera MD) Mother Cancer Ovarian, uterine CA. CAD (coronary artery disease) Heart disease Hypertension Myocardial infarction Father Myocardial infarction ID following fall with hip fracture, treated medically. Surgical History (Updated 03/18/24 @ 21:[address] Asmita Oseguera MD) No history of previous surgery Surgical History no surgical history Social History (Updated 03/18/24 @ 21:[address] Asmita Oseguera MD) household members: none Smoking Status: Never smoker alcohol intake: never substance use type: does not use Vital Signs Vital Signs Vital Signs: 03/20/24 11:00 03/20/24 13:05 03/20/24 13:10 Temperature 97.5 F L 97.9 F Temperature Source Temporal Oral Pulse Rate 77 73 Pulse Strength Respiratory Rate 18 16 Respiratory Effort Normal Non-Labored Respiratory Depth Normal Respiratory Pattern Normal Blood Pressure 182/81 H 174/79 H Blood Pressure Mean 114 110 Blood Pressure Source Monitor Monitor Blood Pressure Position Semi-Fowlers Semi-Fowlers Blood Pressure Location Right Arm Left Arm Pulse Ox 97 96 Oxygen Delivery Method Room Air Room Air Room Air 03/20/24 17:16 03/20/24 18:25 03/20/24 20:09 Temperature 98.1 F 97.7 F L Temperature Source Oral Temporal Pulse Rate 76 79 Pulse Strength Respiratory Rate 16 18 Respiratory Effort Normal Non-Labored Respiratory Depth Respiratory Pattern Blood Pressure 190/83 H 154/79 H Blood Pressure Mean 118 104 Blood Pressure Source Monitor Monitor Blood Pressure Position Semi-Fowlers Semi-Fowlers Blood Pressure Location Left Arm Left Arm Pulse Ox 98 96 Oxygen Delivery Method Room Air Room Air Room Air 03/20/24 21:57 03/20/24 23:25 03/21/24 02:02 Temperature 98.1 F Temperature Source Oral Pulse Rate 78 88 Pulse Strength Respiratory Rate 16 Respiratory Effort Respiratory Depth Respiratory Pattern Blood Pressure 176/86 H 190/85 H 178/83 H Blood Pressure Mean 116 120 114 Blood Pressure Source Monitor Monitor Blood Pressure Position Semi-Fowlers Semi-Fowlers Blood Pressure Location Right Arm Right Arm Pulse Ox 95 Oxygen Delivery Method Room Air 03/21/24 03:36 03/21/24 03:38 03/21/24 09:00 Temperature 97.6 F L 97.6 F L Temperature Source Temporal Temporal Pulse Rate 75 70 Pulse Strength Respiratory Rate 16 18 Respiratory Effort Normal Non-Labored Respiratory Depth Respiratory Pattern Blood Pressure 176/82 H 182/89 H Blood Pressure Mean 113 120 Blood Pressure Source Monitor Monitor Blood Pressure Position Semi-Fowlers Semi-Fowlers Blood Pressure Location Right Arm Right Arm Pulse Ox 94 99 Oxygen Delivery Method Room Air Room Air Room Air 03/21/24 09:00 Temperature Temperature Source Pulse Rate Pulse Strength Normal (2+) Respiratory Rate Respiratory Effort Respiratory Depth Respiratory Pattern Blood Pressure Blood Pressure Mean Blood Pressure Source Blood Pressure Position Blood Pressure Location Pulse Ox Oxygen Delivery Method Weight Weight: 70.3 kg Body Mass Index (BMI) 28.5 EEG Results Procedure Details EEG Procedure Details: TORI SCHWARTZ is a 83 year old F with a past medical history of , who presents for evaluation of Electroencephalogram on DATE at TIME NIHSS NIHSS Nursing Documentation NIHSS Nursing Documentation: NIHSS: Ischemic Stroke/TIA Start: 03/20/24 13:06 Freq: Status: Active Protocol: Activity Type Activity Date Activity User E-sign Co-sign Detail Recorded Client Recorded Date Recorded By Document 03/20/24 13:06 HS Desktop 03/20/24 13:15 HS 03/20/24 13:06 NIH Stroke Scale [NIHSS] A score of 0 is normal or asymptomatic . Total possible score is 42. Inpatient: RN or Physician to activate a stroke alert for onset of new stroke symptoms or with NIHSS increase >/= 3 points. Following change in neurological status, NIHSS will be performed per physician order or more frequently PRN. -1a. Level of Consciousness Alert; keenly responsive -1b. LOC Questions Answers BOTH questions correctly. -1c. LOC Commands Performs both tasks correctly . -2. Best Gaze Normal -3. Visual No visual loss -4. Facial Palsy Normal symmetrical movements -5a. Left Arm No drift; arm holds 90 (or 45 ) degrees for full 10 seconds -5b. Right Arm Drift; arm drifts downward but doesn?t hit the bed -6a. Left Leg No drift; leg holds 30-degree position for full 5 seconds -6b. Right Leg No drift; leg holds 30-degree position for full 5 seconds -7. Limb Ataxia Present in 1 limb -8. Sensory Normal; no sensory loss -9. Best Language No aphasia; normal -10. Dysarthria Normal -11. Extinction and Inattention No abnormality -Total 2 Query Text:A score of 0 is normal or asymptomatic. Total possible score is 42 . ED: Notify Physician for NIHSS increase by > / = 3 points. Inpatient: RN or Physician to activate a stroke alert for NIHSS increase of > / = 3 points. Coma Scale [Assess] -Eye Opening Spontaneous -Motor Obeys Commands -Verbal Oriented [Total] -Coma Scale Total 15 Thrombolytic: Vital Signs & NIHSS Start: 03/18/24 20:28 Text: Assess and document vital signs and NIHSS Status: Complete within 15 minutes of tenecteplase bolus administration Freq: [id number],Q1HX16,Q2H Protocol: Activity Type Activity Date Activity User E-sign Co-sign Detail Recorded Client Recorded Date Recorded By Document 03/18/24 21:30 EM desktop 03/18/24 21:33 EM 03/18/24 21:30 Vital Signs [Pulse] -Pulse Rate (60-100) 75 -Pulse Location Monitor [Respirations] -Respiratory Rate (12-18) 18 -Respiratory rate source Monitor -Pulse Oximetry 97 [Blood Pressure] -Blood Pressure (90/60-120/80) 201/91 H -Blood Pressure Mean 127 -Source Monitor -Position Sitting -Blood Pressure Location Right Arm -Is the SBP > or = 180 Yes -Is the DBP > or = 105 No NIH Stroke Scale [NIHSS] A score of 0 is normal or asymptomatic . Total possible score is 42. Inpatient: RN or Physician to activate a stroke alert for onset of new stroke symptoms or with NIHSS increase >/= 3 points. Following change in neurological status, NIHSS will be performed per physician order or more frequently PRN. -1a. Level of Consciousness Alert; keenly responsive -1b. LOC Questions Answers BOTH questions correctly. -1c. LOC Commands Performs both tasks correctly . -2. Best Gaze Normal -3. Visual No visual loss -4. Facial Palsy Normal symmetrical movements -5a. Left Arm No drift; arm holds 90 (or 45 ) degrees for full 10 seconds -5b. Right Arm No effort against gravity ; arm falls -6a. Left Leg No drift; leg holds 30-degree position for full 5 seconds -6b. Right Leg No effort against gravity ; leg falls to bed immediately -7. Limb Ataxia Absent -8. Sensory Normal; no sensory loss -9. Best Language No aphasia; normal -10. Dysarthria Normal -11. Extinction and Inattention No abnormality -Total 6 Query Text:A score of 0 is normal or asymptomatic. Total possible score is 42 . ED: Notify Physician for NIHSS increase by > / = 3 points. Inpatient: RN or Physician to activate a stroke alert for NIHSS increase of > / = 3 points. Thrombolytic: Vital Signs & NIHSS Start: 03/18/24 21:47 Text: Assess and document vital signs and NIHSS Status: Complete within 15 minutes prior to Tenecteplase administration Freq: [id number],Q1HX16,Q2H Protocol: Activity Type Activity Date Activity User E-sign Co-sign Detail Recorded Client Recorded Date Recorded By Document 03/20/24 11:00 CG [id number] 03/20/24 12:09 CG 03/20/24 11:00 Vital Signs [Blood Pressure] -Is the SBP > or = 180 No -Is the DBP > or = 105 Yes NIH Stroke Scale [NIHSS] A score of 0 is normal or asymptomatic . Total possible score is 42. Inpatient: RN or Physician to activate a stroke alert for onset of new stroke symptoms or with NIHSS increase >/= 3 points. Following change in neurological status, NIHSS will be performed per physician order or more frequently PRN. -1a. Level of Consciousness Alert; keenly responsive -1b. LOC Questions Answers BOTH questions correctly. -1c. LOC Commands Performs both tasks correctly . -2. Best Gaze Normal -3. Visual No visual loss -4. Facial Palsy Normal symmetrical movements -5a. Left Arm No drift; arm holds 90 (or 45 ) degrees for full 10 seconds -5b. Right Arm Drift; arm drifts downward but doesn?t hit the bed -6a. Left Leg No drift; leg holds 30-degree position for full 5 seconds -6b. Right Leg No drift; leg holds 30-degree position for full 5 seconds -7. Limb Ataxia Present in 1 limb -8. Sensory Normal; no sensory loss -9. Best Language No aphasia; normal -10. Dysarthria Normal -11. Extinction and Inattention No abnormality -Total 2 Query Text:A score of 0 is normal or asymptomatic. Total possible score is 42 . ED: Notify Physician for NIHSS increase by > / = 3 points. Inpatient: RN or Physician to activate a stroke alert for NIHSS increase of > / = 3 points. NIHSS 1a. Level of Consciousness: Alert; keenly responsive 1b. LOC Questions: Answers BOTH questions correctly. 1c. LOC Commands: Performs both tasks correctly. 2. Best Gaze: Normal 3. Visual: No visual loss 4. Facial Palsy: Normal symmetrical movements 5a. Left Arm: No drift; arm holds 90 (or 45) degrees for full 10 seconds 5b. Right Arm: Drift; arm drifts downward but doesn?t hit the bed 6a. Left Leg: No drift; leg holds 30-degree position for full 5 seconds 6b. Right Leg: Drift; leg falls by the end of 5-seconds, but does not hit bed 7. Limb Ataxia: Present in 1 limb 8. Sensory: Normal; no sensory loss 9. Best Language: No aphasia; normal 10. Dysarthria: Normal 11. Extinction and Inattention: No abnormality Total: 3 Lab / Micro Data 03/21/24 05:09 03/21/24 05:09 Labs: Laboratory Results - last 24 hr 03/21/24 05:09: WBC 7.6, RBC 4.65, Hgb 13.5, Hct 41.5, MCV 89.2, MCH 29.0, MCHC 32.5, RDW Std Deviation 41.6, RDW Coeff of Belkys 12.7, Plt Count 250, MPV 10.6, Immature Gran % (Auto) 0.300, Neut % (Auto) 63.3, Lymph % (Auto) 25.2, [place] % (Auto) 9.4, Eos % (Auto) 1.3, Baso % (Auto) 0.5, Absolute Neuts (auto) 4.8, Absolute Lymphs (auto) 1.92, Nucleated RBC % 0, Sodium 131 L, Potassium 3.5, Chloride 99, Carbon Dioxide 23.0, Anion Gap 9, BUN 17, Creatinine 0.93, Estim Creat Clear Calc 42.01, Est GFR (MDRD) Af Amer 74, Est GFR (MDRD) Non-Af 61, BUN/Creatinine Ratio 18.4, Glucose 108 H, Calcium 8.9 Imaging Radiology Impression Brain MRI 03/20/24 10:00 IMPRESSION: Small acute left periventricular infarct extending into the basal ganglia. Chronic involutional and white matter changes. Electronically Signed: Alexia Amaral MD at 11:14 EDT Reading Location ID and State: [facility] / [place] Tel , Service support , ADDENDUM: 03/20/24 1135 IMPRESSION: Small acute left periventricular infarct extending into the basal ganglia. Chronic involutional and white matter changes. N.B. : Haresh Patten RN, confirmed on 03/20/2024 11:28:16 (ET) that the healthcare facility has received the radiology report. Electronically Signed: Alexia Amaral MD at 11:14 EDT , Active Medications Active Medications Active Medications: Current Medications Generic Name Dose Route Start Last Admin Trade Name Freq PRN Reason Stop Dose Admin Acetaminophen 650 mg 03/18/24 21:47 Acetaminophen 325 Mg Tablet PO Q4H PRN PRN Fever, pain 1-07/29 Albuterol Sulfate 2.5 mg 03/18/24 21:47 Albuterol 2.5 Mg/3 Ml Vial.Neb. INHALATION Q2H PRN PRN Dyspnea, wheezing Aspirin 81 mg 03/21/24 08:00 03/21/24 08:56 Aspirin E.C. 81 Mg Tablet PO 81 mg BREAKFAST SAL Administration Atenolol 50 mg 03/20/24 10:00 03/21/24 08:56 Atenolol 50 Mg Tablet PO 50 mg DAILY SAL Administration Protocol Atorvastatin Calcium 80 mg 03/20/24 22:00 03/20/24 22:00 Atorvastatin Calcium 80 Mg Tablet PO 80 mg QHS SAL Administration Diphenhydramine HCl 50 mg 03/18/24 21:47 Diphenhydramine 50 Mg/Ml Syringe IV X1 PRN Allergic Reaction Enoxaparin Sodium 40 mg 03/20/24 15:50 03/21/24 08:57 Enoxaparin 40 Mg/0.4 Ml Syringe SC 40 mg DAILY SAL Administration Hydrochlorothiazide 25 mg 03/20/24 10:00 03/21/24 08:56 Hydrochlorothiazide 25 Mg Tablet PO 25 mg DAILY SAL Administration Sodium Chloride 250 mls @ 15 mls/hr 03/18/24 21:55 IV .[id number] PRN Saline Flush Sodium Chloride 250 mls @ 15 mls/hr 03/18/24 21:55 IV .[id number] PRN Additional IVPB Infusion Labetalol HCl 20 mg 03/19/24 17:46 03/20/24 23:34 Labetalol (Compound) 20 Mg/4 Ml Syringe IV 20 mg Q6H PRN PRN Administration SBP GREATER THAN 180 Protocol Lisinopril 10 mg 03/21/24 13:00 Lisinopril 10 Mg Tablet PO Q24H SAL Protocol Melatonin 3 mg 03/18/24 21:47 Melatonin 3 Mg Tablet PO QHS PRN PRN INSOMNIA Ondansetron HCl 4 mg 03/18/24 21:47 Ondansetron 4 Mg/2 Ml Vial IV Q8H PRN PRN NAUSEA/VOMITING Prochlorperazine Edisylate 5 mg 03/18/24 21:47 Prochlorperazine 10 Mg/2 Ml Vial IV Q4H PRN PRN Breakthrough Nausea/Vomiting Senna/Docusate Sodium 2 tablet 03/18/24 21:47 Senna/Docusate Sodium 1 Tablet PO BID PRN PRN Constipation Sodium Chloride 10 ml 03/18/24 21:47 03/19/24 18:07 0.9% Saline Lock 10 Ml Syringe IV 10 ml UD PRN Administration Before/After Tenecteplase Administration Sodium Chloride 10 - 40 ml 03/18/24 21:55 03/20/24 17:30 0.9% Saline Lock 10 Ml Syringe IV 10 ml UD PRN Administration SALINE FLUSH
--- NOTE | 2024-03-21 12:58 | PN.HOSP_ITS ---
Reason for Visit Reason for Visit: Diagnoses Hyperlipidemia, unspecified (03/18/24) Hypokalemia (03/18/24) Cerebral infarction, unspecified (03/18/24) Occlusion and stenosis of unspecified carotid artery (03/18/24) Hyperglycemia, unspecified (03/18/24) Objective Data Objective Data Vital Signs: Vital Signs Temp Pulse Resp BP Pulse Ox O2 Del Method 97.6 F L 70 18 182/89 H 99 Room Air 03/21/24 09:00 03/21/24 09:00 03/21/24 09:00 03/21/24 09:00 03/21/24 09:00 03/21/24 09:00 Oxygen Delivery Method Room Air Weight: 154 lb 15.759 oz Body Mass Index (BMI) 28.5 Intake & Output: Intake and Output for Last 24 Hours 03/19/24 03/20/24 03/21/24 23:59 23:59 23:59 Intake Total 2870.41 / 2895.41 485.00 / 845.00 1320 / 1320 Output Total 4175 / 4175 1325 / 1325 1200 / 1200 Balance -1304.59 / -1279.59 -840.00 / -480.00 120 / 120 Lab / Micro Data 03/21/24 05:09 03/21/24 05:09 Labs: Laboratory Results - last 24 hr 03/21/24 05:09: WBC 7.6, RBC 4.65, Hgb 13.5, Hct 41.5, MCV 89.2, MCH 29.0, MCHC 32.5, RDW Std Deviation 41.6, RDW Coeff of Belkys 12.7, Plt Count 250, MPV 10.6, Immature Gran % (Auto) 0.300, Neut % (Auto) 63.3, Lymph % (Auto) 25.2, [place] % (Auto) 9.4, Eos % (Auto) 1.3, Baso % (Auto) 0.5, Absolute Neuts (auto) 4.8, Absolute Lymphs (auto) 1.92, Nucleated RBC % 0, Sodium 131 L, Potassium 3.5, Chloride 99, Carbon Dioxide 23.0, Anion Gap 9, BUN 17, Creatinine 0.93, Estim Creat Clear Calc 42.01, Est GFR (MDRD) Af Amer 74, Est GFR (MDRD) Non-Af 61, BUN/Creatinine Ratio 18.4, Glucose 108 H, Calcium 8.9 Physical Exam Narrative Seen and examined. Patient admitted with acute also right-sided hemiparesis status post tenecteplase in ICU. Right-sided weakness is improving. No acute change in language, no dysarthria or dysphagia. Physical exam General: Alert, Oriented x3, Cooperative HEENT: Atraumatic, PERRLA, EOMI, Normocephalic Oral: No Gingival or Mucosal Lesions/ Ulcerations Neck: Supple, No JVD, Negative Carotid Bruits Chest wall/Lungs: Air entry diminished in bilateral lung bases. No crepitation/rhonchi Cardiovascular: Regular rate, Regular Rhythm, Normal S1, Normal S2, No M/G/R Abdomen: Bowel Sounds Present, Soft, Non Tender, Non-Distended : No dysuria. No renal angle tenderness. No suprapubic tenderness. Extremities: No edema, Capillary Refill Less than 3 Seconds Skin: No rashes, No breakdown Musculoskeletal: No Tenderness to Palpation of Joints or Extremities Neurological: Right-sided nasolabial sulcus flat. Right-sided weakness, NIH 3. Psych/Mental Status: Normal Affect, Appropriate. Assessment & Plan Assessment/Plan (1) Stroke: (2) Carotid artery stenosis: (3) Hyperlipidemia: (4) Hypokalemia: (5) Hyperglycemia: PLAN: Plan 83-year-old female was admitted with acute sudden onset of dizziness followed by right-sided upper and lower extremity weakness causing mechanical fall. 1. Acute ischemic stroke suspected left MCA infarct: Patient was admitted in ICU after tenecteplase given about 2030 hrs. on 03/18/2024. Patient was hypotensive, BP 250/110, improved to 190/100. NIH stroke scale variable 7-9. CTA without proximal LVO, bilateral ICA 50 to 69% with moderate vertebral artery stenosis. Carotid duplex less than 50%, bilateral ICA. 03/20: Patient evaluated by [facility] neurologist. Currently NIH stroke scale 3. MRI pending in the morning today. 2D echo was done and reported bubble contrast study negative for PFO/ASD. Normal left atrium. EF 55 to 60%. Blood pressure is controlled. Lipid profile shows total cholesterol 208, LDL 131. On atorvastatin 40 mg daily. 03/21: Patient evaluated by neurologist but did not comment about dual antiplatelet agent therefore I asked the question. Otherwise she is showing improvement in the right-sided weakness. 2. Hypokalemia: Resolved. 3. Hyperglycemia -Fasting glucose this morning is 122 and was 124 at the time of admission -Hemoglobin A1c is 5.8, suggestive of prediabetes 4. Carotid artery stenosis/vertebral artery stenosis -Moderate bilateral, 50 to 69% Bilateral ICA. Calcified plaque at the origin of right vertebral artery with probable moderate stenosis of distal vertebral arteries bilaterally, V4 segment. Calcified plaque formation of right cavernous carotid artery moderate and left cavernous artery mild. Carotid Doppler shows mild less than 50% bilateral ICA. No LVO. Vascular surgery referral recommended at the time of discharge -Continue statin 5. Dyslipidemia -Total cholesterol 208 with an LDL of 131 HDL 58 -Continue statin 40 mg daily 6. Hypertension, uncontrolled: Patient was given intermittent labetalol and IV nicardipine drip in ICU. BP control as per stroke guidelines. Currently off nicardipine drip. 7 DVT prophylaxis -SCDs -Start chemoprophylaxis if CT is negative at 24 hours post tenecteplase CODE STATUS -Full code Clinical Impression(s) from Imaging Studies Brain CT 03/18/24 20:01 IMPRESSION: No acute disease Head/Neck CTA 03/18/24 20:01 IMPRESSION: Right greater than left cavernous carotid artery stenoses as above. Bilateral vertebral artery stenoses as above. Sensitivity limited without 3-D reformats. Chest X-Ray 03/18/24 20:50 IMPRESSION: Normal x-ray examination of the chest. Electronically Signed: John Cortes MD at 22:23 EDT , Carotid Duplex 03/18/24 21:47 Interpretation Summary Smooth plaque noted within the right common carotid artery with irregular calcific plaque with shadowing at the proximal right internal carotid artery. Less than 50% stenosis of the right internal carotid artery. Notation is made that the distal right internal carotid artery was difficult to image Less than 50% stenosis right external carotid artery Smooth plaque noted in the left common carotid artery with irregular plaque with a degree of calcific shadowing at the proximal left internal carotid artery and less than 50% stenosis. Less than 50% stenosis left external carotid artery Patent and antegrade vertebral arteries bilaterally Echocardiogram 03/18/24 21:47 Interpretation Summary The estimated ejection fraction is 55-60 %. Ordering Physician: Asmita Oseguera Referring Physician: Asmita Oseguera Performed By: Luciana Adams and Student Brain CT 03/19/24 21:22 IMPRESSION: Age-related changes as above, without evidence of acute intracranial hemorrhage in this noncontrast head CT. Electronically Signed: Gatito Duenas MD at 22:37 EDT , Brain MRI 03/20/24 10:00 IMPRESSION: Small acute left periventricular infarct extending into the basal ganglia. Chronic involutional and white matter changes. Electronically Signed: Alexia Amaral MD at 11:14 EDT , ADDENDUM: 03/20/24 1135 IMPRESSION: Small acute left periventricular infarct extending into the basal ganglia. Chronic involutional and white matter changes. N.B. : Haresh Patten RN, confirmed on 03/20/2024 11:28:16 (ET) that the healthcare facility has received the radiology report. Electronically Signed: Alexia Amaral MD at 11:14 EDT , Charges/Coding Visit Charges Inpatient E&M: 45338 Subs Hosp L2
[2024-03-21] MEDS: Lisinopril 10 MG Tablet PO (14:21)
[2024-03-21] MEDS: 0.9% Saline Lock 10 ML Syringe IV (18:00)
[2024-03-21] MEDS: Labetalol (Compound) 20 MG/4 ML SYRINGE IV (18:00)
[2024-03-21] MEDS: Atorvastatin Calcium 80 MG Tablet PO (20:33)
[2024-03-22 00:39] VITALS: BMI 28.5
[2024-03-22 00:40] VITALS: BMI 28.5
[2024-03-22 01:16] VITALS: BP 144/72; PULSE 67; RESP 16; TEMP 36.2; O2SAT 96
[2024-03-22 04:28] VITALS: BP 130/80; PULSE 69; RESP 16; TEMP 36.3; O2SAT 98
[2024-03-22 05:17] LABS: Absolute Lymphocyte Count 1.98 X10^3/uL (0.83-4.51); Basophil# 0.04 X10^3/uL; Basophil% 0.6 % (0-1); Eosinophil# 0.13 X10^3/uL; Eosinophils% 1.9 % (0-5); Hematocrit 38.7 % (37-47); Hemoglobin 13.1 g/dL (12.0-15.0); Lymphocyte # 1.98 X10^3/ul (0.83-4.51); Mean Corp Hgb Conc 33.9 g/dL (32-36); Mean Corpuscular Hgb 29.8 pg (27.0-32.0); Mean Platelet Vol. 10.2 fl (6.2-12.0); Monocyte# 0.62 X10^3/uL; Monocyte% 9.1 % (0-10); NRBC Flagged by Analyzer 0 % (0-5); Neutrophil # 4.03 X10^3/uL (2.7-7.7); Neutrophil % 59.1 % (47-70); Platelet Count 233 K/mm3 (150-450); RBC Distribution Width CV 12.6 % (11.6-14.6); RBC Distribution Width SD 40.5 fl (35.1-43.9); White Blood Count 6.8 K/mm3 (4.4-11.0)
[2024-03-22 05:32] LABS: Anion Gap 10 (5-15); BUN 16 mg/dL (7-18); BUN/Creat Ratio 17.5 RATIO (10-20); Calcium,Total 8.7 mg/dL (8.5-10.1); Chloride 93 mmol/L (98-107); Creatinine, Serum 0.92 mg/dL (0.55-1.02); EST Glomerular Filtration Rate 62 mL/min (>60); Est Glom Filt Rate - Afr Amer 75 mL/min (>60); Estimated Creatinine Clearance 42.55 ml/min; Glucose 100 mg/dL (74-106); Potassium 3.4 mmol/L (3.5-5.1); Sodium Level 127 mmol/L (136-145)
[2024-03-22 06:00] VITALS: BMI 28.3
[2024-03-22 08:30] VITALS: BP 180/88; PULSE 65; RESP 14; TEMP 36.6; O2SAT 99
[2024-03-22] MEDS: Atenolol 50 MG Tablet PO (08:32)
[2024-03-22] MEDS: Aspirin E.C. 81 MG Tablet PO (08:32)
[2024-03-22] MEDS: hydroCHLOROthiazide 25 MG Tablet PO (08:32)
[2024-03-22] MEDS: Enoxaparin 40 MG/0.4 ML Syringe SC (08:33)
--- NOTE | 2024-03-22 08:38 | PN.HOSP_ITS ---
Reason for Visit Reason for Visit: Diagnoses Hyperlipidemia, unspecified (03/18/24) Hypokalemia (03/18/24) Cerebral infarction, unspecified (03/18/24) Occlusion and stenosis of unspecified carotid artery (03/18/24) Hyperglycemia, unspecified (03/18/24) Subjective Subjective Feeling well. Objective Data Objective Data Vital Signs: Vital Signs Temp Pulse Resp BP Pulse Ox O2 Del Method 36.6 C 65 14 180/88 H 99 Room Air 03/22/24 08:30 03/22/24 08:30 03/22/24 08:30 03/22/24 08:30 03/22/24 08:30 03/22/24 08:30 Oxygen Delivery Method Room Air Weight: 69.9 kg Body Mass Index (BMI) 28.3 Intake & Output: Intake and Output for Last 24 Hours 03/20/24 03/21/24 03/22/24 23:59 23:59 23:59 Intake Total 485.00 / 845.00 2080 / 2320 720 / 720 Output Total 1325 / 1325 2200 / 2650 1000 / 1000 Balance -840.00 / -480.00 -120 / -330 -280 / -280 Lab / Micro Data 03/22/24 04:45 03/22/24 04:45 Labs: Laboratory Results - last 24 hr 03/22/24 04:45: WBC 6.8, RBC 4.40, Hgb 13.1, Hct 38.7, MCV 88.0, MCH 29.8, MCHC 33.9, RDW Std Deviation 40.5, RDW Coeff of Belkys 12.6, Plt Count 233, MPV 10.2, Immature Gran % (Auto) 0.300, Neut % (Auto) 59.1, Lymph % (Auto) 29.0, Scurry % (Auto) 9.1, Eos % (Auto) 1.9, Baso % (Auto) 0.6, Absolute Neuts (auto) 4.0, Absolute Lymphs (auto) 1.98, Nucleated RBC % 0, Sodium 127 L, Potassium 3.4 L, C hloride 93 L, Carbon Dioxide 24.0, Anion Gap 10, BUN 16, Creatinine 0.92, Estim Creat Clear Calc 42.55, Est GFR (MDRD) Af Amer 75, Est GFR (MDRD) Non-Af 62, BUN/Creatinine Ratio 17.5, Glucose 100, Calcium 8.7 Physical Exam Const alert and no apparent distress HEENT head/scalp atraumatic and moist oral mucous membranes Resp normal respiratory effort and no retractions Neuro Neuro Narrative: Muscle strength 5-5 in left upper and left lower extremity. Slightly less strong on the right side but still 5 out of 5 strength. Assessment & Plan Assessment/Plan (1) Stroke: (2) Carotid artery stenosis: (3) Hyperlipidemia: (4) Hypokalemia: (5) Hyperglycemia: PLAN: Plan Acute ischemic stroke suspected left MCA infarct: * s/p tenecteplase given about 2029 on 03/18/2024. P * CTA without proximal LVO, bilateral ICA 50 to 69% with moderate vertebral artery stenosis. Carotid duplex less than 50%, bilateral ICA. * MRI brain small acute left periventricular infarct into the BG. Echo shows an EF 55-60% * ASA and high-intensity atorvastatin * Follow up with neurology as outpt. Carotid artery stenosis/vertebral artery stenosis * 50 to 69% Bilateral ICA. Calcified plaque at the origin of right vertebral artery with probable moderate stenosis of distal vertebral arteries bilaterally, V4 segment. Calcified plaque formation of right cavernous carotid artery moderate and left cavernous artery mild. * Carotid Doppler shows mild less than 50% bilateral ICA. No LVO. * Vascular surgery referral recommended at the time of discharge HTN: * uncontrolled * did require nicardipine gtt post TNK * continue atenolol and HCTZ. DVT prophylaxis Enoxaparin CODE STATUS-Full code DC to rehab.
--- NOTE | 2024-03-22 10:04 | CASEMGMT ---
Addendum entered by Pepper Ibarra 03/22/24 10:27: GAB notified patient she has been accepted in the Acute Rehab Unit. GAB explained her insurance has to approve before she can go. Pepper IBANEZ Original Note: Referral was made to [facility] Acute Rehab Unit and they can accept patient. Ting will start pre-cert. GBA will update patient. Plan: d/c to [facility] Acute Rehab Unit pending insurance approval. Pepper IBANEZ
[2024-03-22 12:00] VITALS: BP 150/102; PULSE 67
[2024-03-22] MEDS: Lisinopril 10 MG Tablet PO (12:03)
--- NOTE | 2024-03-22 12:49 | CASEMGMT ---
Addendum entered by Pepper Ibarra 03/22/24 14:28: GAB notified patient that her insurance approved her to go to the Acute Rehab Unit and she will go today. Patient thanked GAB. Plan: d/c to [facility] Acute Rehab. Pepper IBANEZ Original Note: Patient was approved to go to [facility] Acute Rehab. GAB notified physician. Pepper IBANEZ
--- NOTE | 2024-03-22 13:29 | DS.PCM_ITS ---
Providers Date of Admission: 03/18/24 Primary Care Physician: Dr. Radha Quigley MD Consultations 03/18/24 21:47 Consult: Director Of Physical Therapy / Pulmonary Medicine Routine Consulting Provider: Pulmonary Medicine isela [place] Reason for Consult: Acute Ischemic Stroke/TIA EMERGENT Consult: No Notified: Yes Date Notified: 03/18/24 Time Notified: 20:57 Method of Notification: Text Consult: Tele-Neurology Routine Consulting Provider: [facility] Reason for Consult: Acute Ischemic Stroke/TIA EMERGENT Consult: Yes MD Notified: Yes Date Notified: 03/18/24 Time Notified: 20:57 Method of Notification: ED Physician Initiated Nursing Unit Staff Notify [facility] of Tele-Neurology Consult: Yes Reason For Visit: CVA, S/P TNK Diagnosis Discharge Diagnosis (1) Stroke: Status: Acute Code(s): I63.9 - Cerebral infarction, unspecified (2) Carotid artery stenosis: Status: Acute Code(s): I65.29 - Occlusion and stenosis of unspecified carotid artery (3) Hyperlipidemia: Status: Acute Code(s): E78.5 - Hyperlipidemia, unspecified (4) Hypokalemia: Status: Acute Code(s): E87.6 - Hypokalemia (5) Hyperglycemia: Status: Acute Code(s): R73.9 - Hyperglycemia, unspecified Plan Acute ischemic stroke suspected left MCA infarct: * s/p tenecteplase given about 2029 on 03/18/2024. P * CTA without proximal LVO, bilateral ICA 50 to 69% with moderate vertebral artery stenosis. Carotid duplex less than 50%, bilateral ICA. * MRI brain small acute left periventricular infarct into the BG. Echo shows an EF 55-60% * ASA and high-intensity atorvastatin * Follow up with neurology as outpt. Carotid artery stenosis/vertebral artery stenosis * 50 to 69% Bilateral ICA. Calcified plaque at the origin of right vertebral artery with probable moderate stenosis of distal vertebral arteries bilaterally, V4 segment. Calcified plaque formation of right cavernous carotid artery moderate and left cavernous artery mild. * Carotid Doppler shows mild less than 50% bilateral ICA. No LVO. * Vascular surgery referral recommended at the time of discharge HTN: * uncontrolled * did require nicardipine gtt post TNK * continue atenolol and HCTZ. DVT prophylaxis Enoxaparin CODE STATUS-Full code DC to rehab. Medications at Discharge Home Medications atenolol 50 mg tablet 50 mg PO DAILY 03/18/24 hydrochlorothiazide 50 mg tablet 50 mg PO DAILY 03/18/24 aspirin 81 mg tablet,delayed release 81 mg PO BREAKFAST #0 tabs 03/22/24 atorvastatin 80 mg tablet 80 mg PO QHS #0 tabs 03/22/24 lisinopril 10 mg tablet 10 mg PO Q24H #0 tabs 03/22/24 Weight / BMI Weight Weight: 69.9 kg Body Mass Index (BMI) 28.3 ABG / Lab / Microbiology Data 03/22/24 04:45 03/22/24 04:45 Laboratory: Laboratory Results - last 24 hr 03/22/24 04:45: WBC 6.8, RBC 4.40, Hgb 13.1, Hct 38.7, MCV 88.0, MCH 29.8, MCHC 33.9, RDW Std Deviation 40.5, RDW Coeff of Belkys 12.6, Plt Count 233, MPV 10.2, Immature Gran % (Auto) 0.300, Neut % (Auto) 59.1, Lymph % (Auto) 29.0, [place] % (Auto) 9.1, Eos % (Auto) 1.9, Baso % (Auto) 0.6, Absolute Neuts (auto) 4.0, Absolute Lymphs (auto) 1.98, Nucleated RBC % 0, Sodium 127 L, Potassium 3.4 L, C hloride 93 L, Carbon Dioxide 24.0, Anion Gap 10, BUN 16, Creatinine 0.92, Estim Creat Clear Calc 42.55, Est GFR (MDRD) Af Amer 75, Est GFR (MDRD) Non-Af 62, BUN/Creatinine Ratio 17.5, Glucose 100, Calcium 8.7 D/C Instructions Discharge Diet: Low fat / Low cholesterol Meaningful Use Info Meaningful Use Meaningful Use Diagnoses (Choose all that apply): Ischemic CVA CVA Therapy Assessed for PT,OT and/or ST?: Yes Ischemic Stroke Antithrombotic order at d/c?: Yes Dx of Atrial fib/flutter?: No Anticoagulant at discharge?: No Reason anticoagulant not ordered: Treatment not Indicated Statin Dosing Therapy Reference: STATIN DOSE THERAPY REFERENCE: * Patients > 75 years receive moderate or high dose statin therapy. * Patients 75 years or YOUNGER should receive HIGH intensity statin dose unless contraindicated. You will be required to document reason for non-treatment if statin daily dose does not meet guidelines. HIGH DOSE STATIN THERAPY DAILY Atorvastatin > than or = to 40 mg Rosuvastatin > than or = to 20 mg Amlodipine + Atorvastatin > than or = to 2.5/40 mg Ezetimibe + Simvastatin 10/80 mg Simvastatin 80mg Statins at discharge?: Yes Primary Dx Acute Ischemic CVA?: Yes IV thrombolytic ordered during stay?: Yes Discharge Plan Admission Admit Date/Time: 03/18/24 20:55 Primary Reason for Your Visit: Acute Right Sided Weakness Attending Provider: Shamir Taylor Primary Care Provider: Radha Quigley Consulting Providers: Asmita Oseguera; Irene Engel; Demetrio Amos; Hawa Corbett; Kesha Gloria; Ros Sandy; Wilma Méndez; Brandon Carrillo; Nati Ghotra; Jason Sherman; Arturo Quevedo; Mary Gallardo; Ephraim Leal; Melia Méndez; Karthikeyan Crockett; Jt Gregory; Vamshi Mccormick; Tabitha Chavez; Mario Ray; Colette Engel; Wandy Apple; Ruperto Rubin Instructions Additional Instructions / Restrictions: 1. We did refer you to the [facility] stroke clinic and you will need follow-up there for your stroke Discharge Orders/Prescriptions Prescriptions: New aspirin 81 mg Tablet,Delayed Release (Dr/Ec) 81 mg PO BREAKFAST Qty: 0 0RF atorvastatin 80 mg Tablet 80 mg PO QHS Qty: 0 0RF lisinopril 10 mg Tablet 10 mg PO Q24H Qty: 0 0RF Continued hydrochlorothiazide 50 mg tablet 50 mg PO DAILY atenolol 50 mg tablet 50 mg PO DAILY Discontinued Prempro 0.625-2.5 mg tablet 1 tab PO DAILY Other Ambulatory Orders: 30 Day Event Recorder Preventi (Urgent) Timeframe: 1 Day Facility: [facility] - Location: Cardiovascular Services Ordered By: Dr. Shamir Taylor Referrals / Follow Up: Shamir Small MD [Med Staff - Active Staff] - Within 1 Month Radha Quigley MD [Primary Care Provider] - Within 2 Weeks Disposition Disposition (needs filled in before D/C Order can be placed): Inpatient Rehab Unit/Facility Charges/Coding Visit Charges Inpatient E&M: 76464 Disch Hosp >30min
[2024-03-22 13:35] VITALS: BP 165/83; PULSE 68; RESP 14; TEMP 36.6; O2SAT 98
--- NOTE | 2024-03-22 14:07 | PHA.DC.MR.R ---
Pharmacy [place] Med Reconciliation Pharmacy Service has performed discharge medication reconciliation for this patient. The patient's discharge medication list was reviewed for discrepancies and discrepancies were resolved. Medications at Discharge Home Medications atenolol 50 mg tablet 50 mg PO DAILY 03/18/24 hydrochlorothiazide 50 mg tablet 50 mg PO DAILY 03/18/24 aspirin 81 mg tablet,delayed release 81 mg PO BREAKFAST #0 tabs 03/22/24 atorvastatin 80 mg tablet 80 mg PO QHS #0 tabs 03/22/24 lisinopril 10 mg tablet 10 mg PO Q24H #0 tabs 03/22/24
== END 2024-03-22 15:07 | DRG 62 ==
LOC: ED 21:05 → ICU 21:27 → PCU 03-21 02:30
PROVIDERS: Internal Medicine; Admitting Provider Family Medicine; Emergency Provider Emergency Medicine; PCP Internal Medicine; Referring Provider Family Medicine
DX: I63.512 Cerebral infarction due to unspecified occlusion or stenosis of left middle cerebral artery (principal); G81.91 Hemiplegia, unspecified affecting right dominant side; N18.30 Chronic kidney disease, stage 3 unspecified; I73.9 Peripheral vascular disease, unspecified; I12.9 Hypertensive chronic kidney disease with stage 1 through stage 4 chronic kidney disease, or unspecified chronic kidney disease; I65.23 Occlusion and stenosis of bilateral carotid arteries; E87.6 Hypokalemia; E78.5 Hyperlipidemia, unspecified; I65.03 Occlusion and stenosis of bilateral vertebral arteries; R29.703 NIHSS score 3; R29.707 NIHSS score 7; R29.810 Facial weakness; R29.702 NIHSS score 2; R73.03 Prediabetes
CPT/HCPCS: 36415; 51702; 70450; 70496; 70498; 70551; 71045; 80048; 80053; 80061; 82962; 83036; 83735; 84443; 84484; 85025; 85027; 85610; 85730; 92526; 92610; 93005; 93306; 93880; 94668; 97110; 97116; 97163; 97166; 97530; 97535; 99285; J3101; J7030; J7050; Q9967; A4216

== ENCOUNTER 2024-03-22 15:22 | Inpatient (IN) | payer MEDICARE, SELFPAY ==
[2024-03-22 15:27] VITALS: BP 151/90; PULSE 66; RESP 16; TEMP 37.1; O2SAT 98; BMI 28.2
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
[2024-03-22 20:22] LABS: Mucous, Urine 0 SEEN /hpf (<or=2+); Red Blood Cells-Urine 0 SEEN /hpf (0-5); Squamous Epithelial Cells - UA 0 SEEN /hpf (5-10); White Blood Cells 0 SEEN /hpf (0-5)
[2024-03-22 20:26] LABS: Color, Urine Straw (Yellow); Glucose, Dipstick Normal (Normal); Ketone-Dipstick Negative (Negative); Leukocyte Esterase-Dipstick Negative /ul (Negative); Nitrite-Dipstick Negative (Negative); Occult Blood-Urine Negative /ul (Negative); Protein-Dipstick Negative (Negative); Urine Bilirubin Dipstick Negative (Negative); Urine Clarity Clear (Clear); Urine Urobilinogen Normal (Normal)
[2024-03-22 20:35] LABS: Bacteria RARE /hpf (None Seen)
[2024-03-22 20:39] VITALS: BMI 28.2
[2024-03-22] MEDS: Atorvastatin Calcium 80 MG Tablet PO (21:55)
[2024-03-22 22:00] VITALS: BP 184/92; PULSE 84; RESP 18; TEMP 37.1; O2SAT 94
[2024-03-23] VITALS (7 sets, daily range): BP systolic 150–193; BP diastolic 84–89; PULSE 63; RESP 16; TEMP 36.8–37; O2SAT 96; BMI 28.2
[2024-03-23] MEDS: hydrALAZINE 10 MG Tablet PO (05:20)
[2024-03-23] MEDS: Enoxaparin 40 MG/0.4 ML Syringe SC (05:20)
[2024-03-23 05:45] LABS: Absolute Lymphocyte Count 1.58 X10^3/uL (0.83-4.51); Absolute Neutrophil Count 4.9 X10^3/uL (2.0-7.7); Basophil# 0.06 X10^3/uL; Basophil% 0.8 % (0-1); Eosinophil# 0.15 X10^3/uL; Hematocrit 43.8 % (37-47); Hemoglobin 14.6 g/dL (12.0-15.0); Lymphocyte # 1.58 X10^3/ul (0.83-4.51); Lymphocyte % 21.1 % (19-41); Mean Corp Hgb Conc 33.3 g/dL (32-36); Mean Corpuscular Hgb 29.6 pg (27.0-32.0); Mean Corpuscular Volume 88.7 fL (81-99); Mean Platelet Vol. 10.2 fl (6.2-12.0); Monocyte% 10.7 % (0-10); NRBC Flagged by Analyzer 0 % (0-5); Neutrophil # 4.87 X10^3/uL (2.7-7.7); Platelet Count 257 K/mm3 (150-450); RBC Distribution Width CV 12.4 % (11.6-14.6); RBC Distribution Width SD 40.1 fl (35.1-43.9); Red Blood Count 4.94 M/mm3 (4.2-5.4); White Blood Count 7.5 K/mm3 (4.4-11.0)
--- NOTE | 2024-03-23 06:00 | NURSING ---
Patient up to BSC to void. Patient insisted nursing step out because she is shy. This nurse stood outside of the door and instructed patient to hit call wang when she was finished. Patient then attempted to self transfer and move BSC closer to the table so she could get cleaned up. Patient instructed she is not allowed to get up without assistance. Patient stated she wasn't trying to get up without assistance, she just wanted to move the BSC. Patient has been impulsive throughout entire HS shift attempting to self transfer multiple times. Patient would get to the edge of the bed and set off the bed alarm and not call for help. Patient re-educated oncology consultant light use and to call for assistance with all transfers. Patient verbalized understanding.
[2024-03-23 06:10] LABS: ALB/GLOB Ratio 0.9 RATIO (0.9-2.4); AST(SGOT) 40 U/L (15-37); Alanine Aminotransfer ALT/SGPT 32 U/L (13-56); Albumin, Serum 3.3 g/dL (3.2-5.0); Alkaline Phosphatase 73 U/L (45-117); Anion Gap 8 (5-15); BUN 20 mg/dL (7-18); BUN/Creat Ratio 22.9 RATIO (10-20); Calcium,Total 9.3 mg/dL (8.5-10.1); Chloride 96 mmol/L (98-107); Creatinine, Serum 0.87 mg/dL (0.55-1.02); EST Glomerular Filtration Rate 66 mL/min (>60); Est Glom Filt Rate - Afr Amer 80 mL/min (>60); Estimated Creatinine Clearance 44.91 ml/min; Globulin 3.6 g/dL (2.2-4.2); Glucose 107 mg/dL (74-106); Magnesium 1.8 mg/dL (1.6-2.6); Phosphorus 3.8 mg/dL (2.5-4.9); Potassium 3.6 mmol/L (3.5-5.1); Protein, Total 6.9 g/dL (6.4-8.2); Sodium Level 128 mmol/L (136-145)
[2024-03-23] MEDS: Atenolol 50 MG Tablet PO (08:18)
[2024-03-23] MEDS: Aspirin E.C. 81 MG Tablet PO (08:19)
[2024-03-23] MEDS: Lisinopril 10 MG Tablet PO (08:19)
[2024-03-23] MEDS: Senna/Docusate Sodium 1 Tablet 2 TABLET PO (08:20)
--- NOTE | 2024-03-23 12:32 | PCM.RU.PYE ---
Admission Information Primary Diagnosis:: Post stroke debility Status Changes from Prescreening?: No changes Identified Actual Problem List:: Bladder Incontinence, Alteration in Sleep, Mobility Impaired, Self Care Deficit, Know.Dfct of Medicaitons, BP, Hypertension and Alteration-Leisure Activ. Risk of Complications DVT: LMWH and MILLIE Hose Bleeding: Monitor Lab Values, Nursing to Teach Precautions for anti-coagulation therapy., Wound, if applicable, to be assessed every shift. and Stroke patients assessed for lethargy or change in status. Infection: Clinical Staff to Monitor for S/S of infection: and S/S of infection include fever, redness, warmth, etc. Urinary Tract Infection: Monitor for frequency, burning, discomfort, or incontinence. and Nursing will obtain urine sample for urinalysis and C&S when ordered. Aspiration: Clinical staff will monitor for coughing, drooling, congestion., Speech will evaluate swallowing and dsyphasia. and Nursing will monitor patient swallowing during meals. Falls: Patient will be evaluated for Fall Precautions and Patient will be placed on Fall Precautions as indicated per protocol. Skin Breakdown: Nursing will assess skin daily using assessment tool. and Nursing will place on Skin Breakdown Precautions as indicated. Pain: Clinical staff will assess patient's pain level per protocol., Medications will be given, if needed, and the pain level reassessed. and Other methods: Massage, distraction, decrease stimulus, etc. used PRN. Plan of Care Patient requires physician specializing in physical medicine and rehab oversight to provide close medical supervision of rehab issues including: Pain Management, Sleep Problems, Bowel and Bladder, Medical and co-morbidity Management, DVT prophylaxis, Rehabilitation Leadership and Coordination of treatment team Patient needs Physical Therapy: For a minimum of 1 hour and At least 5 out of 7 days Patient needs Physical Therapy to improve:: Mobility, Strengthening, Transfers, Stretching, ROM, Endurance, Stairs, Gait and Balance Patient needs Occupational Therapy: For a minimum of 1 hour and At least 5 out of 7 days Patient needs Occupational Therapy to improve ADL's incl.: Eating, Grooming, Bathing, Dressing, Toileting, Toilet transfers, Community Reintegration, Higher functioning activities, Household tasks, Adaptive Equipment, Splinting and Other activities as determined Patient requires speech therapy: For a minimum of 1 hour and At least 5 out of 7 days Patient requires speech therapy for: Swallowing, Cognition, Language Skills and Compensatory Strategies Patient requires 12/05 Rehabilitation Nursing for: Pain Issues, Identifying and preventing risk factors, Monitoring and reporting current medical conditions, Assisting with ambulation, transfer, and all ADL's, Teaching patients about disease process and medications, Family teaching, Providing safe environment, Bowel and Bladder Issues, Skin integrity and Medication Management Patient needs Auto Specialty Services Manager/ Case Management for: Discharge Planning, Arranging Home Equipment or Services and Family Interventions Patient needs Dietary and Nutrition Services for: Adequate Nutrition, Nutritional Supplements and Nutritional Education Goals Goals Patient will remain: free from falls Patient will perform eating at: MOD I level of assist. Patient will perform bed mobility at: MOD I level of assist. Patient will complete transfers from bed to chair at: MOD I level of assist. Patient will ambulate: - (350 feet with least restrictive device or no device on various surfaces at mod I) Patient will complete upper body dressing at: - (Set up) Patient will complete lower body dressing at: - (Supervision with adaptive equipment as needed) Patient will complete toilet transfer at: - (Supervision) Patient will complete toileting at: - (Supervision) Patient will perform bathing at: - (Upper body bathing at set up and lower body bathing at supervision with adaptive equipment as needed) Patient will perform Tub/Shower transfer at: - (Supervision) Patient will complete grooming at: - (Supervision while standing at the sink) Patient will achieve: 12 stairs (With 1 handrail at standby assist) Patient will have pain level of: of 3 or less Patient's skin will: remain intact Patient will receive: adequate nutrition. Discharge Planning Pt Prognosis for Sig. Practical Improv. w/in Reasonable Time: Good Estimated Length of stay (days): 21 Anticipated D/C Destination: Home with Outpt Therapy Was Preadmission Assessment Accurate?: Yes
[2024-03-23 13:48] LABS: Osmolality, Serum 276 mOsm/KG (280-301)
[2024-03-23] MEDS: Atorvastatin Calcium 80 MG Tablet PO (21:41)
[2024-03-24] MEDS: Enoxaparin 40 MG/0.4 ML Syringe SC (05:09)
[2024-03-24] MEDS: 0.9% Saline Lock 10 ML Syringe IV (05:25)
[2024-03-24 06:00] VITALS: BMI 28.9
[2024-03-24] MEDS: Aspirin E.C. 81 MG Tablet PO (08:00)
[2024-03-24] MEDS: Atenolol 50 MG Tablet PO (08:00)
[2024-03-24] MEDS: Lisinopril 10 MG Tablet PO (08:00)
[2024-03-24] MEDS: Acetaminophen 500 MG Tablet 1000 MG PO (08:07)
[2024-03-24 08:32] VITALS: BP 156/78; PULSE 71; RESP 16; TEMP 37.2; O2SAT 97
[2024-03-24 08:52] LABS: Urine Sodium 15 mmol/L (Not Establ.)
[2024-03-24 09:40] LABS: Osmolality, Urine 322 mOsm/KG
[2024-03-24 11:20] VITALS: BMI 28.9
[2024-03-24 19:34] VITALS: BP 142/88; PULSE 63; RESP 16; TEMP 37.1; O2SAT 99
[2024-03-24] MEDS: Atorvastatin Calcium 80 MG Tablet PO (22:29)
[2024-03-25] MEDS: Enoxaparin 40 MG/0.4 ML Syringe SC (04:59)
[2024-03-25] MEDS: Aspirin E.C. 81 MG Tablet PO (08:08)
[2024-03-25] MEDS: Atenolol 50 MG Tablet PO (08:08)
[2024-03-25] MEDS: Lisinopril 10 MG Tablet PO (08:08)
[2024-03-25] MEDS: Senna/Docusate Sodium 1 Tablet 2 TABLET PO (08:08)
[2024-03-25 08:51] VITALS: BP 142/78; PULSE 71; RESP 16; TEMP 36.9; O2SAT 97
--- NOTE | 2024-03-25 12:08 | PN_ITS ---
Subjective Subjective Afebrile VSS --blood pressure over the past 48 hours has ranged from 142/78 to 175/89. She has not had to have as needed hydralazine since 03/23/2024 at 05 20. Maintaining appropriate oxygen saturation on RA Oral intake - FOOD good FLUIDS good-I instructed her to limit her fluid intake to no more than 2 L daily because of hyponatremia. She told me she has been told this in the past by her primary care physician. Discussed with nursing - no problems that need addressed Reviewed the THERAPY notes Medication list reviewed. Urine sodium is 15 with a urine osmolality of 322 and a serum osmolality of 276. Denies cephalgia, vertigo, lightheadedness, chest pain, palpitations, shortness of breath, cough, nausea/vomiting/abdominal pain, dysuria and calf tenderness. She is complaining of some right shoulder pain and left hip discomfort. She is also complaining of numbness in her right foot but this is a chronic problem. The pain in the shoulder and hip is improved with Tylenol. Objective Data Objective Data Vital Signs: Vital Signs Temp Pulse Resp BP Pulse Ox O2 Del Method 98.5 F 71 16 142/78 H 97 Room Air 03/25/24 08:51 03/25/24 08:51 03/25/24 08:51 03/25/24 08:51 03/25/24 08:51 03/25/24 11:09 Oxygen Delivery Method Room Air Weight: 157 lb 3 oz Body Mass Index (BMI) 28.9 Intake & Output: Intake and Output for Last 24 Hours 03/23/24 03/24/24 03/25/24 23:59 23:59 23:59 Intake Total 4060 / 4060 1370 / 1370 240 / 240 Output Total 3900 / 3900 1999 850 / 850 Balance 160 / 160 -630 / -630 -610 / -610 Lab / Micro Data 03/23/24 05:15 03/23/24 05:15 Physical Exam Const alert, oriented x3 and no apparent distress Constitutional Narrative: Very talkative, good eye contact when we are speaking. She is impulsive General Appearance: cooperative Orientation / Consciousness: Negative for confused HEENT head/scalp atraumatic and moist oral mucous membranes Eyes PERRL and EOMs intact bilaterally Eyes Narrative: No discharge from the eyes. No scleral icterus. No conjunctival injection. No mattering of the eyelashes. No proptosis. Neck supple, no JVD, No nodes and no carotid bruits Neck Narrative: Carotids have brisk upstroke and good pulse volume bilaterally. General: trachea midline Chest Chest: symmetrical chest wall rise Resp normal respiratory effort, normal air movement and clear to auscultation bilaterally Resp Narrative: No conversational dyspnea. Effort and Inspection: Negative for tachypneic Cardio regular rate, regular rhythm, no murmurs, no rub and no gallops Cardio Narrative: No ectopy GI normal to inspection, nondistended, normoactive bowel sounds, soft to palpation and non-tender GI Narrative: No guarding with palpation. No abdominal bruits. no CVA tenderness Narrative: Had a Shafer catheter while on the acute side of the hospital. Extremity no calf tenderness General Extremity: Negative for edema Skin General Skin Exam: no breakdown Rashes: no rashes Wounds: Negative for wounds noted Neuro CN's II-XII intact bilaterally Neuro Narrative: Has weakness and drift with the RUE and the RLE. Ataxic with the RUE and the RLE. No sensory loss. No extinction. No dysarthria or aphasia. She is impulsive and has some trouble staying on topic and following through with a thought. No visual field cuts. Dysequilibrium with walking. No nystagmus or vertigo. No difficulty swallowing. Psych Psych Narrative: Some flight of ideas and she is verbose. Trouble maintaining focus. Impulsive. Poor safety awareness. Good eye contact. appropriate. Attitude: No agitated Mood & Affect: Negative for depressed or anxious Thought Content: No suicidality Assessment & Plan Assessment/Plan (1) Physical debility: (2) Ischemic cerebrovascular accident (CVA): (3) Noncompliance w/medication treatment due to intermit use of medication: (4) Uncontrolled hypertension: (5) Hyperglycemia: (6) Hypokalemia: (7) Hyperlipidemia: QUALIFIERS: Hyperlipidemia type: unspecified Qualified Code(s): E 78.5 - Hyperlipidemia, unspecified (8) Carotid artery stenosis: QUALIFIERS: Laterality: bilateral Qualified Code(s): I65.23 - Occlusion and stenosis of bilateral carotid arteries (9) Insomnia disorder: QUALIFIERS: Insomnia type: primary Qualified Code(s): F51.01 - Primary insomnia PLAN: Plan 1. Continue therapy 2. Try trazodone 100 mg at at bedtime for insomnia 3. Blood pressure is improving but she still has blood pressures greater than goal of 130/80. The stroke happened on 03/18/2024 and if the BP is still above goal on this coming Friday will adjust the antihypertensive regimen. Will continue as needed hydralazine for blood pressure greater than 170/95. Charges/Coding Visit Charges Inpatient E&M: 73859 Subs Hosp L2
--- NOTE | 2024-03-25 13:21 | CASEMGMT ---
Social Work- Teams Meeting IDT met with patient and daughterJory at bedside to complete care plan meeting. Discussed patient progress with therapy PT/OT and nursing. Patient is contact guard/ standby assist with ambulation and steps. Patient goal is to increase strength to be independent of DME. Patient is currently using walker with ambulation. SW introduced self and role. SW educated patient and daughter on [facility] insurance coverage and benefits; next review date 03/28/2024. Patient's goal is to return home. Patient's daughter informed team that the patient has 2 story home with flight of steps to upper and lower level. Patient will need increase ability to ambulate up steps. Physician discussed dietary adjustments and Bp management. SW will continue to follow to complete assessment. MARCELLE Haile
--- NOTE | 2024-03-25 15:58 | CHAPLAIN ---
Type of Pastoral Visit _x__ Initial Visit ___ Follow-up Visit ___ On-call Visit ___ General Patient Visit ___ Spiritual Assessment ___ Family Conference ___ Bereavement ___ Rapid Response ___ Code Blue ___ Other (describe below) Pastoral Care Referral From _x__ Patient ___ Family ___ Nurse ___ Physician ___ Watch Electrician ___ Relationship Manager ___ Other (describe below) Sacrament/Intervention _x__ Active listening ___ Anointing ___ Latter-Day ___ Bereavement ___ Communion ___ Destiney exploration ___ _x__ Life review ___ Prayer ___ Reconciliation ___ Sacrament of Sick ___ Supportive presence ___ Wedding ___ Other (describe below) Pastoral Comments patient is welcoming; pt explains her busy life and her hopes of going home to live independently again; pt has family support but part of them are on vacation now; pt was raised as a Alevism but is not active in the destiney at this time; pt talks about life but presents with an optimistic view of future and recovery; pt expresses motivation to regain use of right side
--- NOTE | 2024-03-25 16:25 | CASEMGMT ---
Social Work SW met with pt and completed psychosocial assessment. Pt has advance directives on file at [facility]. Pt's family is supportive. Prior to CVA pt lived alone in a one story Condo with a flight of stairs to the finished basement. Pt reports she can live on one story and does not have to go to basement if she is unable. Pt plans to return home at time of dc. Pt notified that next review date with insurance is 03/28 and continued stay is not guaranteed. SW will continue to follow for dc planning and support. ANABELLA Mendez
[2024-03-25 17:00] VITALS: BMI 28.9
[2024-03-25 19:45] VITALS: BP 162/78; PULSE 63; RESP 14; TEMP 36.8; O2SAT 98
[2024-03-25] MEDS: Atorvastatin Calcium 80 MG Tablet PO (21:53)
[2024-03-26] MEDS: Acetaminophen 500 MG Tablet 1000 MG PO (03:55)
[2024-03-26] MEDS: Enoxaparin 40 MG/0.4 ML Syringe SC (06:08)
[2024-03-26 06:54] VITALS: O2SAT 97
[2024-03-26 08:37] VITALS: BP 152/82; PULSE 60; RESP 16; TEMP 36.6; O2SAT 98
[2024-03-26] MEDS: Aspirin E.C. 81 MG Tablet PO (09:12)
[2024-03-26] MEDS: Lisinopril 10 MG Tablet PO (09:13)
[2024-03-26] MEDS: Atenolol 50 MG Tablet PO (09:15)
[2024-03-26 14:50] VITALS: PULSE 68
[2024-03-26 17:00] VITALS: BMI 28.9
[2024-03-26 20:59] VITALS: BP 142/94; PULSE 67; RESP 16; TEMP 36.9; O2SAT 96
[2024-03-26] MEDS: Atorvastatin Calcium 80 MG Tablet PO (21:16)
[2024-03-26 21:58] VITALS: BMI 28.9
[2024-03-26] MEDS: traZODone 100 MG Tablet PO (22:55)
[2024-03-27] MEDS: Enoxaparin 40 MG/0.4 ML Syringe SC (05:25)
[2024-03-27] MEDS: Aspirin E.C. 81 MG Tablet PO (08:26)
[2024-03-27] MEDS: Senna/Docusate Sodium 1 Tablet 2 TABLET PO (08:26)
[2024-03-27] MEDS: Atenolol 50 MG Tablet PO (08:27)
[2024-03-27] MEDS: Lisinopril 10 MG Tablet PO (08:27)
[2024-03-27 08:46] VITALS: BP 130/80; PULSE 61; RESP 16; TEMP 36.3; O2SAT 97
[2024-03-27 10:00] VITALS: PULSE 61
[2024-03-27 16:39] VITALS: BMI 28.9
[2024-03-27 21:50] VITALS: BP 158/80; PULSE 55; RESP 16; TEMP 37.2; O2SAT 99
[2024-03-27] MEDS: Atorvastatin Calcium 80 MG Tablet PO (21:54)
[2024-03-27 23:34] VITALS: BMI 28.9
[2024-03-28] MEDS: Enoxaparin 40 MG/0.4 ML Syringe SC (06:11)
[2024-03-28] MEDS: Acetaminophen 500 MG Tablet 1000 MG PO (06:53)
[2024-03-28 08:14] VITALS: BP 165/70; PULSE 70; RESP 18; TEMP 36.9; O2SAT 97
[2024-03-28] MEDS: Atenolol 50 MG Tablet PO (08:30)
[2024-03-28] MEDS: Aspirin E.C. 81 MG Tablet PO (08:30)
[2024-03-28] MEDS: Lisinopril 10 MG Tablet PO (08:30)
[2024-03-28] MEDS: Senna/Docusate Sodium 1 Tablet 2 TABLET PO (08:31)
[2024-03-28 10:00] VITALS: PULSE 60
[2024-03-28 17:00] VITALS: BMI 28.9
[2024-03-28 19:32] VITALS: BP 134/72; PULSE 62; RESP 16; TEMP 36.5; O2SAT 99
[2024-03-28] MEDS: Atorvastatin Calcium 80 MG Tablet PO (21:24)
[2024-03-29 02:40] VITALS: BMI 28.9
[2024-03-29] MEDS: Acetaminophen 500 MG Tablet 1000 MG PO (02:58)
[2024-03-29] MEDS: Enoxaparin 40 MG/0.4 ML Syringe SC (06:17)
[2024-03-29 07:35] VITALS: BP 166/78; PULSE 64; RESP 17; TEMP 36.8; O2SAT 96
[2024-03-29] MEDS: Atenolol 50 MG Tablet PO (08:26)
[2024-03-29] MEDS: Lisinopril 10 MG Tablet PO ×2 (08:27→20:52)
[2024-03-29] MEDS: Aspirin E.C. 81 MG Tablet PO (08:27)
[2024-03-29 08:59] VITALS: BMI 28.9
--- NOTE | 2024-03-29 11:12 | PCM.PROGNOTE ---
Subjective Subjective Afebrile VSS -blood pressures over the past 48 hours have ranged from 130/80 to 166/78. Current antihypertensives include atenolol 50 mg daily and lisinopril 10 mg daily Maintaining appropriate oxygen saturation on RA Oral intake - FOOD good FLUIDS good Discussed with nursing - no problems that need addressed Reviewed the THERAPY notes Medication list reviewed. She is c/o pain in her knees and would like to try either Voltaren Gel or the compounded arthritis cream. She denies CP, SOB, cephalgia, lightheadedness, N/V/D/C/abd pain. No calf tenderness. Having joint pains...had these prior to the recent stroke. Denies pain in the muscles. Objective Data Objective Data Vital Signs: Vital Signs Temp Pulse Resp BP Pulse Ox O2 Del Method 98.3 F 64 17 166/78 H 96 Room Air 03/29/24 07:35 03/29/24 07:35 03/29/24 07:35 03/29/24 07:35 03/29/24 07:35 03/29/24 07:35 Oxygen Delivery Method Room Air Weight: 157 lb 3 oz Body Mass Index (BMI) 28.9 Intake & Output: Intake and Output for Last 24 Hours 03/27/24 03/28/24 03/29/24 23:59 23:59 23:59 Intake Total 1460 / 1460 2520 / 2520 Output Total 1900 / 1900 1950 / 3350 1999 Balance -440 / -440 570 / -830 -1999 Lab / Micro Data 04/05/24 05:00 04/05/24 05:00 Physical Exam Const alert and no apparent distress Constitutional Narrative: Hard of hearing. Having some difficulty with short term memory. General Appearance: cooperative Orientation / Consciousness: Negative for confused Resp normal respiratory effort and clear to auscultation bilaterally Resp Narrative: No conversational dyspnea Effort and Inspection: Negative for tachypneic or labored Cardio regular rate, regular rhythm, no murmurs, no rub and no gallops Cardio Narrative: No ectopy GI normal to inspection, nondistended, normoactive bowel sounds, soft to palpation and non-tender GI Narrative: No guarding with palpation Extremity no calf tenderness General Extremity: Negative for edema Skin General Skin Exam: no breakdown Rashes: no rashes Wounds: Negative for wounds noted Psych cooperative and affect normal Psych Narrative: Poor safety awareness. Impulsive. Still not wanting the therapists to help her.......wants to do everything by herself and she is not yet safe to be on her own. Can not make the connection that her abilities have changed and she needs to learn how to do the things she used to do automatically without assist all over again and be safe doing them. At this point she would not be safe going home alone Appearance: appropriate Attitude: No agitated Assessment & Plan Assessment/Plan (1) Physical debility: (2) Ischemic cerebrovascular accident (CVA): (3) Uncontrolled hypertension: (4) Insomnia disorder: QUALIFIERS: Insomnia type: primary Qualified Code(s): F51.01 - Primary insomnia PLAN: Plan 1. Continue therapy 2. Add compounded arthritis cream twice daily to both knees 3. Increase lisinopril to 10 mg twice daily. Continue atenolol 50 mg every morning and change the time to 0700. 4. BMP in the a.m. Charges/Coding Visit Charges Inpatient E&M: 00491 Subs Hosp L1
[2024-03-29] MEDS: Arthritis Pain Compound 60 CLICK TUBE TOPICAL ×2 (14:56→20:51)
[2024-03-29] MEDS: Atorvastatin Calcium 80 MG Tablet PO (20:51)
[2024-03-29 22:00] VITALS: BP 152/80; PULSE 69; RESP 16; TEMP 36.5; O2SAT 97
[2024-03-29 23:21] VITALS: BMI 28.9
[2024-03-30] MEDS: Enoxaparin 40 MG/0.4 ML Syringe SC (05:13)
[2024-03-30] MEDS: Atenolol 50 MG Tablet PO (05:15)
[2024-03-30 06:36] LABS: Anion Gap 6 (5-15); BUN 13 mg/dL (7-18); BUN/Creat Ratio 14.3 RATIO (10-20); Calcium,Total 8.7 mg/dL (8.5-10.1); Chloride 102 mmol/L (98-107); Creatinine, Serum 0.91 mg/dL (0.55-1.02); EST Glomerular Filtration Rate 63 mL/min (>60); Est Glom Filt Rate - Afr Amer 76 mL/min (>60); Estimated Creatinine Clearance 43.32 ml/min; Glucose 103 mg/dL (74-106); Sodium Level 133 mmol/L (136-145)
[2024-03-30 07:50] VITALS: BP 148/82; PULSE 89; RESP 16; TEMP 36.8; O2SAT 97
[2024-03-30] MEDS: Aspirin E.C. 81 MG Tablet PO (08:23)
[2024-03-30] MEDS: Lisinopril 10 MG Tablet PO ×2 (08:24→21:48)
[2024-03-30] MEDS: Arthritis Pain Compound 60 CLICK TUBE TOPICAL ×2 (08:24→21:48)
--- NOTE | 2024-03-30 11:35 | CASEMGMT ---
Social Work SW met with patient at bedside to provide update regarding [facility] insurance coverage and next review date: 04/05/2024. Patient informed SW that she was notified that at discharge she will require outpatient therapy. Patient informed SW that she would like to discharge with [facility]. SW will continue to follow to assist with discharge planning. MARCELLE Haile
[2024-03-30 17:00] VITALS: BMI 28.9
[2024-03-30 20:00] VITALS: BP 164/84; PULSE 61; RESP 15; TEMP 36.7; O2SAT 98
[2024-03-30] MEDS: Atorvastatin Calcium 80 MG Tablet PO (21:48)
[2024-03-31] MEDS: Acetaminophen 500 MG Tablet 1000 MG PO ×2 (02:15→22:14)
[2024-03-31] MEDS: Atenolol 50 MG Tablet PO (06:24)
[2024-03-31] MEDS: Enoxaparin 40 MG/0.4 ML Syringe SC (06:25)
[2024-03-31 06:28] VITALS: BMI 28.8
[2024-03-31 07:33] VITALS: BP 153/86; PULSE 63; RESP 16; TEMP 36.7; O2SAT 95
[2024-03-31] MEDS: Arthritis Pain Compound 60 CLICK TUBE TOPICAL ×2 (08:08→22:14)
[2024-03-31] MEDS: Lisinopril 10 MG Tablet PO ×2 (08:08→16:24)
[2024-03-31] MEDS: Aspirin E.C. 81 MG Tablet PO (08:08)
--- NOTE | 2024-03-31 14:19 | PCM.PROGNOTE ---
Subjective Subjective Afebrile VSS -blood pressure is still not adequately controlled. Blood pressures over the past 2 days have ranged from 148/82 to 164/84. Heart rate has ranged from 61-69. Maintaining appropriate oxygen saturation on RA Oral intake - FOOD good FLUIDS good Discussed with nursing - no problems that need addressed Reviewed the THERAPY notes Medication list reviewed. Objective Data Objective Data Vital Signs: Vital Signs Temp Pulse Resp BP Pulse Ox O2 Del Method 98.0 F 63 16 153/86 H 95 Room Air 03/31/24 07:33 03/31/24 07:33 03/31/24 07:33 03/31/24 07:33 03/31/24 07:33 03/31/24 07:33 Oxygen Delivery Method Room Air Weight: 157 lb 6.561 oz Body Mass Index (BMI) 28.8 Intake & Output: Intake and Output for Last 24 Hours 03/29/24 03/30/24 03/31/24 23:59 23:59 23:59 Intake Total 980 / 1280 1330 / 1780 650 / 650 Output Total 2900 / 2900 1300 / 2300 1500 / 1500 Balance -1920 / -1620 30 / -520 -850 / -850 Lab / Micro Data 03/23/24 05:15 03/30/24 05:30
[2024-03-31 16:10] VITALS: BMI 28.8
[2024-03-31 17:41] VITALS: BP 194/83; PULSE 78
[2024-03-31] MEDS: hydrALAZINE 10 MG Tablet PO (17:41)
[2024-03-31 17:52] VITALS: BP 194/83; PULSE 78
[2024-03-31 19:56] VITALS: BP 189/94; PULSE 67
[2024-03-31 20:12] VITALS: BMI 28.8
[2024-03-31 22:00] VITALS: BP 195/93; PULSE 61; PULSE 63; RESP 16; TEMP 36.7; O2SAT 96
[2024-03-31] MEDS: Senna/Docusate Sodium 1 Tablet 2 TABLET PO (22:17)
[2024-03-31] MEDS: Atorvastatin Calcium 80 MG Tablet PO (22:18)
[2024-03-31 23:10] VITALS: BP 176/88; PULSE 63
[2024-04-01] VITALS (10 sets, daily range): BP systolic 159–198; BP diastolic 72–89; PULSE 61–74; RESP 15–17; TEMP 36.3–36.5; O2SAT 95–96; BMI 28.8
[2024-04-01] MEDS: Enoxaparin 40 MG/0.4 ML Syringe SC (05:52)
[2024-04-01] MEDS: Atenolol 50 MG Tablet PO (05:59)
[2024-04-01] MEDS: Aspirin E.C. 81 MG Tablet PO (08:48)
[2024-04-01] MEDS: Arthritis Pain Compound 60 CLICK TUBE TOPICAL ×2 (08:48→21:47)
[2024-04-01] MEDS: Lisinopril 10 MG Tablet 30 MG PO (08:48)
--- NOTE | 2024-04-01 10:06 | PN_ITS ---
Subjective Subjective Tori was seen on TEAM rounds today. Her daughter was present in the room for rounds. Afebrile VSS -blood pressure over the past 24 hours has ranged from 159/80 to 189/84. She received 1 dose of hydralazine 10 mg at 7:45 PM yesterday and the BP at HS was 195/93. Lisinopril dose was increased to 30 mg daily yesterday. Pulse has ranged from 61-78. Maintaining appropriate oxygen saturation on RA Oral intake - FOOD usually 75 to 100% of meals FLUIDS good Discussed with nursing - no problems that need addressed Reviewed the THERAPY notes Medication list reviewed. Raulito denies lightheadedness, vertigo, CP, SOB at rest, SOB with exertion, cough, nausea, vomiting, abd pain, diarrhea, constipation, dysuria, calf pain and ankle swelling. Objective Data Objective Data Vital Signs: Vital Signs Temp Pulse Resp BP Pulse Ox O2 Del Method 97.4 F L 65 15 159/80 H 96 Room Air 04/01/24 07:40 04/01/24 07:40 04/01/24 07:40 04/01/24 07:40 04/01/24 07:40 04/01/24 07:40 Oxygen Delivery Method Room Air Weight: 157 lb 6.561 oz Body Mass Index (BMI) 28.8 Intake & Output: Intake and Output for Last 24 Hours 03/30/24 03/31/24 04/01/24 23:59 23:59 23:59 Intake Total 1330 / 1780 1590 / 1590 220 / 220 Output Total 1300 / 2300 2200 / 2200 300 / 300 Balance 30 / -520 -610 / -610 -80 / -80 Lab / Micro Data 03/23/24 05:15 03/30/24 05:30 Physical Exam Const alert and no apparent distress Constitutional Narrative: Always pleasant and talkative. General Appearance: cooperative Resp clear to auscultation bilaterally Cardio regular rate and regular rhythm GI normal to inspection, nondistended, normoactive bowel sounds, soft to palpation and non-tender Extremity no calf tenderness Extremity Narrative: The right calf is bigger than the left but she has no pain. General Extremity: Negative for edema Skin Rashes: no rashes Assessment & Plan Assessment/Plan (1) Physical debility: (2) Ischemic cerebrovascular accident (CVA): (3) Uncontrolled hypertension: (4) Insomnia disorder: QUALIFIERS: Insomnia type: primary Qualified Code(s): F51.01 - Primary insomnia PLAN: Trazodone 100 mg at had a hangover effect the next day and she has not taken it recently. May need to try something else to help her sleep. Will continue to monitor her sleep quality. PLAN: Plan 1. Continue therapy 2. She tells me that she will be on her own at DC from rehab. Her dtr Bárbara helps with her finances but, no one monitors her medication. She is still impulsive and still has problems with safety awareness. At this point I would not consider her safe at home without supervision. Will continue to monitor the situation as we get closer to a DC date. She is agreeable to getting a ALERT system she can activate if she is having trouble and needs assist. I told her she can not drive at DC and recommended she attend the driving safety school at [facility] in [place] when she feels she is ready to drive so they can test her to determine if she is safe. Charges/Coding Visit Charges Inpatient E&M: 70363 Subs Hosp L2
--- NOTE | 2024-04-01 13:01 | CASEMGMT ---
Social Work- Teams Meeting IDT met with patient and daughter at bedside to complete care planning. Discussed patient progress with therapy (PT/OT) and nursing. Patient is progressing with OT; independent with contact guard for care. Patient has a lack of safety awareness when ambulating; causing imbalance. Patient coordination is off balance while moving right/left side together. Patient is contact guard/SBA for transfers. Patient is contact guard to use 13 steps with rails. Patient continues to have deficit on right side. Patient has improved with impulsivity and memory to call nursing to support with ambulation. AGB educated patient and daughter of [facility] Medicare insurance coverage and next review date; 04/05/2024. Patient's daughter would like patient to remain on inpatient rehab for continued therapy due to patient living alone. Patient's goal is to discharge to outpatient therapy. Patient's daughter is looking to adjust home with rails. Physician and care team will continue to monitor to determine appropriate level of care. Patient continues to have concerns regarding blood pressure management. Patient was not managing hypertension medications prior to hospitalization. Physician discussed medication management. Daughter expressed concerns for patient sciatica SW will continue to monitor discharge planning. MARCELLE Haile
[2024-04-01] MEDS: hydrALAZINE 25 MG Tablet PO ×2 (14:48→21:59)
[2024-04-01] MEDS: Atorvastatin Calcium 80 MG Tablet PO (21:47)
[2024-04-01] MEDS: Senna/Docusate Sodium 1 Tablet 2 TABLET PO (21:52)
[2024-04-01] MEDS: Acetaminophen 500 MG Tablet 1000 MG PO (21:52)
[2024-04-02] VITALS (12 sets, daily range): BP systolic 147–192; BP diastolic 71–98; PULSE 60–68; RESP 16–18; TEMP 36.3–36.4; O2SAT 96–97; BMI 28.8
[2024-04-02] MEDS: Enoxaparin 40 MG/0.4 ML Syringe SC (06:13)
[2024-04-02] MEDS: Lisinopril 10 MG Tablet 30 MG PO (08:19)
[2024-04-02] MEDS: Atenolol 50 MG Tablet PO (08:20)
[2024-04-02] MEDS: Arthritis Pain Compound 60 CLICK TUBE TOPICAL (08:20)
[2024-04-02] MEDS: Aspirin E.C. 81 MG Tablet PO (08:20)
[2024-04-02] MEDS: hydrALAZINE 25 MG Tablet PO ×3 (09:02→21:51)
--- NOTE | 2024-04-02 16:59 | PN_ITS ---
Subjective Subjective Afebrile VSS -blood pressure has ranged from 147/71 to 172/98 for the past 24 hours. Heart rate is in the 60s consistently. Lisinopril was increased to 30 mg daily yesterday. Blood pressure was elevated yesterday afternoon and she received 25 mg of hydralazine. Recheck blood pressure was better but, nursing is not recording the BP's before and after Hydralazine. Maintaining appropriate oxygen saturation on RA Oral intake - FOOD good FLUIDS good Discussed with nursing - no problems that need addressed Reviewed the THERAPY notes Medication list reviewed. Raulito denies lightheadedness, chest pain, shortness of breath, palpitations, nausea/vomiting/abdominal pain, dysuria and calf tenderness. She is complaining of pain at night the left side of the occiput. She is also having some left trapezius pain. She is also having back pain at night and this wakes her up. She tells me Tylenol works well for her. Objective Data Objective Data Vital Signs: Vital Signs Temp Pulse Resp BP Pulse Ox O2 Del Method 97.6 F L 68 18 178/92 H 97 Room Air 04/02/24 08:46 04/02/24 16:57 04/02/24 09:05 04/02/24 16:57 04/02/24 08:46 04/02/24 09:40 Oxygen Delivery Method Room Air Weight: 157 lb 6.561 oz Body Mass Index (BMI) 28.8 Intake & Output: Intake and Output for Last 24 Hours 03/31/24 04/01/24 04/02/24 23:59 23:59 23:59 Intake Total 1590 / 1590 930 / 930 720 / 720 Output Total 2200 / 2200 1300 / 1300 1300 / 1300 Balance -610 / -610 -370 / -370 -580 / -580 Lab / Micro Data 03/23/24 05:15 03/30/24 05:30 Physical Exam Const alert and no apparent distress Constitutional Narrative: Hard of hearing General Appearance: cooperative Orientation / Consciousness: Negative for confused HEENT moist oral mucous membranes Eyes PERRL and EOMs intact bilaterally Eyes Narrative: No discharge from the eyes. No scleral icterus. No conjunctival injection. No mattering of the eyelashes. No proptosis. Neck supple, no JVD, No nodes and no carotid bruits Neck Narrative: Carotids have brisk upstroke and good pulse volume bilaterally. General: trachea midline Chest Chest: symmetrical chest wall rise Resp normal respiratory effort and clear to auscultation bilaterally Resp Narrative: No conversational dyspnea Effort and Inspection: Negative for tachypneic or labored Cardio regular rate, regular rhythm, no murmurs, no rub and no gallops Cardio Narrative: No ectopy GI normal to inspection, nondistended, normoactive bowel sounds, soft to palpation and non-tender GI Narrative: No guarding with palpation no CVA tenderness Narrative: Had a Shafer catheter while on the acute side of the hospital. Extremity no calf tenderness General Extremity: Negative for edema Skin General Skin Exam: no breakdown Rashes: no rashes Wounds: Negative for wounds noted Neuro CN's II-XII intact bilaterally Neuro Narrative: Has weakness and drift with the RUE and the RLE. Ataxic with the RUE and the RLE. No sensory loss. No extinction. No dysarthria or aphasia. She is impulsive and has some trouble staying on topic and following through with a thought. No visual field cuts. Dysequilibrium with walking. No nystagmus or vertigo. No difficulty swallowing. Psych Psych Narrative: Seems anxious Appearance: appropriate Attitude: No agitated Activity / Motor Behavior: restless Mood & Affect: anxious Thought Content: No suicidality Assessment & Plan Assessment/Plan (1) Physical debility: (2) Ischemic cerebrovascular accident (CVA): (3) Uncontrolled hypertension: (4) Insomnia disorder: QUALIFIERS: Insomnia type: primary Qualified Code(s): F51.01 - Primary insomnia (5) Chronic back pain: QUALIFIERS: Back pain location: low back pain Back pain laterality: bilateral Sciatica presence: with sciatica Sciatica laterality: s ciatica of right side Qualified Code(s): M54.41 - Lumbago with sciatica, right side; G89.29 - Other chronic pain (6) Muscle spasm: (7) Anxiety: PLAN: Plan 1. Continue therapy 2. Recheck a CBC, magnesium and BMP on Friday 3. Schedule Tylenol 1 g at at bedtime because she is waking up with back pain and Tylenol worked well for her. Will also schedule Zanaflex at HS for trapezius muscle spasm with cephalgia since she is getting pain and SAINI when she is lying down to sleep. 4. BP is not really responding well to medication for HTN. She seems to be anxious.....does not sleep well, has trouble focusing, is always busy/fidgety. If the BP is not better by Friday will discuss starting Buspar 5 mg BID with her on Friday. We talked about anxiety and how it affects BP and she tells me that she does not feel anxious but, she is often restless, always busy, and she has never slept well at night. Charges/Coding Visit Charges Inpatient E&M: 74527 Subs Hosp L1
[2024-04-02] MEDS: Atorvastatin Calcium 80 MG Tablet PO (21:36)
[2024-04-02] MEDS: Acetaminophen 500 MG Tablet 1000 MG PO (21:42)
[2024-04-02] MEDS: Senna/Docusate Sodium 1 Tablet 2 TABLET PO (21:56)
[2024-04-03 06:00] VITALS: BP 172/84; PULSE 60; RESP 16; TEMP 36.6; O2SAT 99
[2024-04-03] MEDS: Atenolol 50 MG Tablet PO (06:36)
[2024-04-03] MEDS: Enoxaparin 40 MG/0.4 ML Syringe SC (06:36)
[2024-04-03] MEDS: Aspirin E.C. 81 MG Tablet PO (07:55)
[2024-04-03] MEDS: Lisinopril 10 MG Tablet 30 MG PO (07:55)
[2024-04-03 10:00] VITALS: BP 137/61; PULSE 61
[2024-04-03] MEDS: Acetaminophen 500 MG Tablet 1000 MG PO ×2 (11:15→20:25)
[2024-04-03 14:00] VITALS: BP 169/76; PULSE 65
[2024-04-03 17:53] VITALS: BP 166/88; PULSE 68
[2024-04-03] MEDS: Arthritis Pain Compound 60 CLICK TUBE TOPICAL (20:25)
[2024-04-03] MEDS: Atorvastatin Calcium 80 MG Tablet PO (20:25)
[2024-04-03 22:00] VITALS: BP 160/88; PULSE 61; RESP 17; TEMP 36.7; O2SAT 96
[2024-04-03 22:10] VITALS: BMI 28.8
[2024-04-04] VITALS (10 sets, daily range): BP systolic 158–195; BP diastolic 70–93; PULSE 62–77; RESP 16–17; TEMP 36.7–36.8; O2SAT 95–96; BMI 28.8
[2024-04-04] MEDS: Enoxaparin 40 MG/0.4 ML Syringe SC (05:53)
[2024-04-04] MEDS: Atenolol 50 MG Tablet PO (05:54)
[2024-04-04] MEDS: Acetaminophen 500 MG Tablet 1000 MG PO ×2 (06:02→21:20)
[2024-04-04] MEDS: Aspirin E.C. 81 MG Tablet PO (09:13)
[2024-04-04] MEDS: Lisinopril 10 MG Tablet 30 MG PO (09:13)
[2024-04-04] MEDS: Arthritis Pain Compound 60 CLICK TUBE TOPICAL ×2 (09:14→21:20)
[2024-04-04] MEDS: hydrALAZINE 25 MG Tablet PO ×2 (15:11→21:21)
[2024-04-04] MEDS: Atorvastatin Calcium 80 MG Tablet PO (21:20)
[2024-04-05] VITALS (8 sets, daily range): BP systolic 121–180; BP diastolic 61–96; PULSE 60–73; RESP 16–17; TEMP 36.4–36.7; O2SAT 94–95; BMI 28.8
[2024-04-05 05:11] LABS: Hematocrit 42.7 % (37-47); Hemoglobin 14.2 g/dL (12.0-15.0); Mean Corp Hgb Conc 33.3 g/dL (32-36); Mean Corpuscular Hgb 29.7 pg (27.0-32.0); Mean Corpuscular Volume 89.3 fL (81-99); Mean Platelet Vol. 10.2 fl (6.2-12.0); Platelet Count 240 K/mm3 (150-450); RBC Distribution Width CV 12.5 % (11.6-14.6); RBC Distribution Width SD 41.2 fl (35.1-43.9); Red Blood Count 4.78 M/mm3 (4.2-5.4); White Blood Count 7.7 K/mm3 (4.4-11.0)
[2024-04-05] MEDS: Atenolol 50 MG Tablet PO (05:11)
[2024-04-05] MEDS: Enoxaparin 40 MG/0.4 ML Syringe SC (05:11)
[2024-04-05 05:38] LABS: Anion Gap 7 (5-15); BUN 19 mg/dL (7-18); BUN/Creat Ratio 23.2 RATIO (10-20); Calcium,Total 8.9 mg/dL (8.5-10.1); Chloride 101 mmol/L (98-107); Creatinine, Serum 0.82 mg/dL (0.55-1.02); EST Glomerular Filtration Rate 71 mL/min (>60); Est Glom Filt Rate - Afr Amer 86 mL/min (>60); Estimated Creatinine Clearance 48.11 ml/min; Glucose 112 mg/dL (74-106); Magnesium 1.9 mg/dL (1.6-2.6); Sodium Level 132 mmol/L (136-145)
[2024-04-05] MEDS: Lisinopril 10 MG Tablet 30 MG PO (09:24)
[2024-04-05] MEDS: Aspirin E.C. 81 MG Tablet PO (09:24)
[2024-04-05] MEDS: Arthritis Pain Compound 60 CLICK TUBE TOPICAL ×2 (09:24→21:39)
--- NOTE | 2024-04-05 10:06 | PN_ITS ---
Subjective Subjective Afebrile VSS -blood pressures are still uncontrolled. She is getting hydralazine as needed and it does bring the blood pressure down. Heart rate is within normal limits. She had hydralazine at bedtime last night and blood pressure today is much better. Maintaining appropriate oxygen saturation on RA Oral intake - FOOD good FLUIDS good Discussed with nursing - no problems that need addressed Reviewed the THERAPY notes Medication list reviewed. Current antihypertensives include atenolol 50 mg every morning and lisinopril 30 mg every morning. Adding the Atenolol did not help. She is still having trouble answering a direct question......she loses her train of thought and I have to redirect her back to the question. Tells me that she has steps to get into the house that are higher than normal steps and there is a screen door with a lip to get over. No HR's and no grab bars. She tells me that she will be able to get into the house but, I am skeptical. she also tells me that her daughter, Bárbara, is handling getting a HR and or grab bar installed. I told her this must be in place at the time of DC. She tells me that she is sleeping better at night. Denies SAINI, CP, SOB, palpitations, n/V/abd pain, dysuria and calf pain. Has been getting arthritis cream on her knees twice a day but, can not even remember this. Tells me that she asks for it when she needs it. She refused it twice a few days ago but, she has been getting it twice a day since then. Objective Data Objective Data Vital Signs: Vital Signs Temp Pulse Resp BP Pulse Ox O2 Del Method 98.0 F 66 16 121/61 H 94 Room Air 04/05/24 05:06 04/05/24 09:28 04/05/24 09:28 04/05/24 09:28 04/05/24 05:06 04/05/24 09:41 Oxygen Delivery Method Room Air Weight: 157 lb 6.561 oz Body Mass Index (BMI) 28.8 Intake & Output: Intake and Output for Last 24 Hours 04/03/24 04/04/24 04/05/24 23:59 23:59 23:59 Intake Total 1460 / 1460 2510 / 2510 560 / 560 Output Total 1550 / 1550 2200 / 2200 Balance -90 / -90 310 / 310 560 / 560 Lab / Micro Data 04/05/24 05:00 04/05/24 05:00 Labs: Laboratory Results - last 24 hr 04/05/24 05:00: WBC 7.7, RBC 4.78, Hgb 14.2, Hct 42.7, MCV 89.3, MCH 29.7, MCHC 33.3, RDW Std Deviation 41.2, RDW Coeff of Belkys 12.5, Plt Count 240, MPV 10.2, S odium 132 L, Potassium 4.0, Chloride 101, Carbon Dioxide 24.0, Anion Gap 7, BUN 19 H, Creatinine 0.82, Estim Creat Clear Calc 48.11, Est GFR (MDRD) Af Amer 86, Est GFR (MDRD) Non-Af 71, BUN/Creatinine Ratio 23.2 H, Glucose 112 H, Calcium 8.9, Magnesium 1.9 Physical Exam Const alert and no apparent distress Constitutional Narrative: Hard of hearing General Appearance: cooperative Resp normal respiratory effort and clear to auscultation bilaterally Resp Narrative: No conversational dyspnea Effort and Inspection: Negative for tachypneic or labored Cardio regular rate, regular rhythm, no murmurs, no rub and no gallops Cardio Narrative: No ectopy GI normal to inspection, nondistended, normoactive bowel sounds, soft to palpation and non-tender GI Narrative: No guarding with palpation Extremity no calf tenderness General Extremity: Negative for edema Skin General Skin Exam: no breakdown Rashes: no rashes Assessment & Plan Assessment/Plan (1) Physical debility: (2) Ischemic cerebrovascular accident (CVA): (3) Uncontrolled hypertension: (4) Insomnia disorder: QUALIFIERS: Insomnia type: primary Qualified Code(s): F51.01 - Primary insomnia PLAN: Plan 1. Continue therapy 2. Change hydralazine to 25 mg p.o. 3 times daily 3. Decrease atenolol to 25 mg since it has not seemed to improve her blood pressure. the BP actually seemed to get worse with the Atenolol. 4. I asked ST to evaluate for cognition. She was only evaluated for swallowing at admission to rehab. If ST finds her cognition is good then will discuss considering treating for ADD with her. Charges/Coding Visit Charges Inpatient E&M: 59947 Subs Hosp L1
[2024-04-05] MEDS: hydrALAZINE 25 MG Tablet PO ×2 (10:28→21:38)
[2024-04-05] MEDS: Atorvastatin Calcium 80 MG Tablet PO (21:37)
[2024-04-05] MEDS: Acetaminophen 500 MG Tablet 1000 MG PO (21:38)
[2024-04-05] MEDS: Senna/Docusate Sodium 1 Tablet 2 TABLET PO (21:39)
[2024-04-06] VITALS (9 sets, daily range): BP systolic 138–176; BP diastolic 72–86; PULSE 69–74; RESP 16; TEMP 36.9–37; O2SAT 96–97; BMI 28.8
[2024-04-06] MEDS: Acetaminophen 500 MG Tablet 1000 MG PO ×2 (02:14→21:32)
--- NOTE | 2024-04-06 03:48 | NURSING ---
Reviewed and agree with Sophie TANG, documentation and assessment charting.
[2024-04-06] MEDS: Atenolol 25 MG Tablet PO (06:10)
[2024-04-06] MEDS: hydrALAZINE 25 MG Tablet PO (06:11)
[2024-04-06] MEDS: Enoxaparin 40 MG/0.4 ML Syringe SC (06:11)
[2024-04-06] MEDS: Arthritis Pain Compound 60 CLICK TUBE TOPICAL ×2 (08:36→21:32)
[2024-04-06] MEDS: Lisinopril 10 MG Tablet 30 MG PO (08:37)
[2024-04-06] MEDS: Aspirin E.C. 81 MG Tablet PO (08:37)
[2024-04-06] MEDS: hydrALAZINE 50 MG Tablet PO ×2 (14:05→21:31)
[2024-04-06] MEDS: Senna/Docusate Sodium 1 Tablet 2 TABLET PO (21:31)
[2024-04-06] MEDS: Atorvastatin Calcium 80 MG Tablet PO (21:32)
[2024-04-07] VITALS (8 sets, daily range): BP systolic 136–170; BP diastolic 80–87; PULSE 68–85; RESP 15–16; TEMP 36.5–36.9; O2SAT 93; BMI 28.4
--- NOTE | 2024-04-07 02:17 | NURSING ---
REVIEWED AND AGREE WITH Sophie TANG, DOCUMENTATION AND ASSESSMENT CHARTING.
[2024-04-07] MEDS: Enoxaparin 40 MG/0.4 ML Syringe SC (06:00)
[2024-04-07] MEDS: hydrALAZINE 50 MG Tablet PO ×3 (06:00→21:56)
[2024-04-07] MEDS: Arthritis Pain Compound 60 CLICK TUBE TOPICAL ×2 (07:59→21:57)
[2024-04-07] MEDS: Lisinopril 10 MG Tablet 30 MG PO (07:59)
[2024-04-07] MEDS: Aspirin E.C. 81 MG Tablet PO (08:00)
--- NOTE | 2024-04-07 09:20 | PCM.PROGNOTE ---
Subjective Subjective AF BP today is 136/80....better with transition to Hydralazine for BP control. Did not respond to a beta keerthi and in fact the BP went up. HR is WNL Maintaining appropriate oxygen saturation on room air. Good appetite and good fluid intake. She was evaluated by speech therapy for cognitive function and they determined that her cognition was within normal limits. Denies lightheadedness, cephalgia, chest pain, shortness of breath, cough, nausea/vomiting/abdominal pain, dysuria and calf tenderness. Her only complaint continues to be that she feels fatigued. Alert, cooperative Lungs-clear to auscultation with good inspiratory effort Heart-regular rate and rhythm without ectopy, no gallops Abdomen-soft, nontender, nondistended, normal bowel sounds in all quadrants, no guarding with palpation No calf tenderness No ankle edema Impressions 1. Postop debility 2. Uncontrolled hypertension-improving with hydralazine 50 mg 3 times daily and lisinopril 30 mg daily. Did not respond to atenolol and in fact the blood pressure seem to get worse. Goal for her blood pressure is less than 130/80. Plan 1. Continue therapy Objective Data Objective Data Vital Signs: Vital Signs Temp Pulse Resp BP Pulse Ox O2 Del Method 98.4 F 68 15 136/80 H 93 Room Air 04/07/24 07:51 04/07/24 07:51 04/07/24 07:51 04/07/24 07:51 04/07/24 07:51 04/07/24 07:51 Oxygen Delivery Method Room Air Weight: 155 lb 6.814 oz Body Mass Index (BMI) 28.4 Intake & Output: Intake and Output for Last 24 Hours 04/05/24 04/06/24 04/07/24 23:59 23:59 23:59 Intake Total 2400 / 2400 1815 / 1815 340 / 340 Output Total 1600 / 1600 1600 / 1600 700 / 700 Balance 800 / 800 215 / 215 -360 / -360 Lab / Micro Data 04/05/24 05:00 04/05/24 05:00 Charges/Coding Visit Charges Inpatient E&M: 15437 Subs Hosp L1
[2024-04-07] MEDS: Acetaminophen 500 MG Tablet 1000 MG PO (21:56)
[2024-04-07] MEDS: Atorvastatin Calcium 80 MG Tablet PO (21:56)
[2024-04-08] VITALS (8 sets, daily range): BP systolic 116–167; BP diastolic 61–74; PULSE 82–96; RESP 15–18; TEMP 36.6–37; O2SAT 95–98; BMI 28.4
[2024-04-08] MEDS: buPROPion (XL) 150 MG TABLET.XL PO ×2 (06:32→08:06)
[2024-04-08] MEDS: Enoxaparin 40 MG/0.4 ML Syringe SC (06:32)
[2024-04-08] MEDS: hydrALAZINE 50 MG Tablet PO ×3 (06:33→20:19)
[2024-04-08] MEDS: Arthritis Pain Compound 60 CLICK TUBE TOPICAL ×2 (08:05→20:19)
[2024-04-08] MEDS: Aspirin E.C. 81 MG Tablet PO (08:06)
[2024-04-08] MEDS: Lisinopril 10 MG Tablet 30 MG PO (08:06)
--- NOTE | 2024-04-08 08:43 | PN_ITS ---
Subjective Subjective Raulito was seen on TEAM rounds today. Her dtr was present in the room for rounds. Afebrile VSS -blood pressure was elevated to 170/82 last evening but today is 142/74. Heart rate yesterday ranged from 83-89. Maintaining appropriate oxygen saturation on RA Oral intake - FOOD good FLUIDS good Discussed with nursing - no problems that need addressed Reviewed the THERAPY notes Medication list reviewed. Some vague complaints about joint pain and weakness. Denies SAINI, lightheadedness, CP, SOB, palpitations, N/V/abd pain, calf tenderness. We discussed the possibility of ADD. Both Raulito and her dtr, Bárbara, are adamant that she does not have ADD. Raulito is willing to continue taking the Wellbutrin however. Will be interesting to see if her attention span and impulsivity improve with Wellbutrin. Objective Data Objective Data Vital Signs: Vital Signs Temp Pulse Resp BP Pulse Ox O2 Del Method 98.1 F 89 18 142/74 H 96 Room Air 04/08/24 06:00 04/08/24 06:33 04/08/24 06:00 04/08/24 06:33 04/08/24 06:00 04/08/24 06:00 Oxygen Delivery Method Room Air Weight: 155 lb 6.814 oz Body Mass Index (BMI) 28.4 Intake & Output: Intake and Output for Last 24 Hours 04/06/24 04/07/24 04/08/24 23:59 23:59 23:59 Intake Total 1815 / 1815 1230 / 1230 700 / 700 Output Total 1600 / 1600 2500 / 2500 Balance 215 / 215 -1270 / -1270 700 / 700 Lab / Micro Data 04/05/24 05:00 04/05/24 05:00 Physical Exam Const alert, oriented x3 and no apparent distress General Appearance: cooperative Resp clear to auscultation bilaterally Cardio regular rate and regular rhythm GI normal to inspection, nondistended, normoactive bowel sounds, soft to palpation and non-tender Extremity normal capillary refill and no calf tenderness General Extremity: Negative for edema Skin Rashes: no rashes Assessment & Plan Assessment/Plan (1) Physical debility: (2) Ischemic cerebrovascular accident (CVA): (3) Uncontrolled hypertension: (4) Insomnia disorder: QUALIFIERS: Insomnia type: primary Qualified Code(s): F51.01 - Primary insomnia (5) Attention deficit disorder: QUALIFIERS: Hyperactivity presence: absent Qualified Code(s): 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 Continue therapy 2. Start diltiazem CD 180 mg daily today 3. continue Hydralazine 4. Recheck a BMP in the AM Charges/Coding Visit Charges Inpatient E&M: 17581 Subs Hosp L2
[2024-04-08] MEDS: dilTIAZem CD 180 MG Capsule PO (11:39)
--- NOTE | 2024-04-08 13:25 | CASEMGMT ---
Social Work Team meeting held today with pt and daughter present. PT/OT/ST/Nursing and physician updated pt on progress while in inpatient rehab. Pt is participating well and making good progress. SW updated pt and family that NRD with insurance is on 04/12 and continued stay is not guaranteed. Pt's dgt is stating she will request an appeal at time discharge is issued by insurance. SW to provide pt with medical alert and driving information and appointment to be set with [employer] [facility] at time of discharge. Treatment plan to continue at this time. Will plan to reTeam pt next week. ANBAELLA Mendez
[2024-04-08] MEDS: Atorvastatin Calcium 80 MG Tablet PO (20:20)
[2024-04-08] MEDS: Acetaminophen 500 MG Tablet 1000 MG PO (20:20)
[2024-04-09] VITALS (9 sets, daily range): BP systolic 113–175; BP diastolic 57–77; PULSE 76–91; RESP 16–20; TEMP 36.6; O2SAT 94–98; BMI 28.4
[2024-04-09] MEDS: Enoxaparin 40 MG/0.4 ML Syringe SC (05:23)
[2024-04-09] MEDS: buPROPion (XL) 150 MG TABLET.XL PO (05:24)
[2024-04-09] MEDS: hydrALAZINE 50 MG Tablet PO ×3 (05:24→21:07)
[2024-04-09] MEDS: Aspirin E.C. 81 MG Tablet PO (07:49)
[2024-04-09] MEDS: dilTIAZem CD 180 MG Capsule PO (07:49)
[2024-04-09] MEDS: Arthritis Pain Compound 60 CLICK TUBE TOPICAL ×2 (07:49→21:06)
[2024-04-09] MEDS: Lisinopril 10 MG Tablet 30 MG PO (07:49)
--- NOTE | 2024-04-09 09:59 | CASEMGMT ---
Social Work Written information on medical alert systems and the [facility] provided to pt per conversation in team meeting. Pt to share information with her daughter. ANABELLA Mendez
--- NOTE | 2024-04-09 13:48 | PCM.PROGNOTE ---
Subjective Subjective Afebrile VSS -blood pressures over the past 24 hours have ranged from 116/61 to 175/68. Blood pressure earlier this morning was 175/68 but the patient tells me that she went to bed early but then woke up at midnight and could not go back to sleep until 2 and then she awoke a few hours later. Heart rate is within normal limits. Maintaining appropriate oxygen saturation on RA Oral intake - FOOD good FLUIDS good Discussed with nursing - no problems that need addressed Reviewed the THERAPY notes - I D/W OT how she did in therapy today and was told she did better today than she has been. she was better able to attend to what was being said to her and she was less impulsive. Medication list reviewed. She tells me that she may have been a little dizzy this AM.......she can not remember. Last BM was on 04/07/24. Denies feeling constipated or bloated. No SAINI. Denies CP, SOB, cough. Objective Data Objective Data Vital Signs: Vital Signs Temp Pulse Resp BP Pulse Ox O2 Del Method 98.6 F 85 16 130/62 H 94 Room Air 04/08/24 22:00 04/09/24 10:00 04/09/24 05:29 04/09/24 10:00 04/09/24 05:29 04/09/24 05:29 Oxygen Delivery Method Room Air Weight: 155 lb 6.814 oz Body Mass Index (BMI) 28.4 Intake & Output: Intake and Output for Last 24 Hours 04/07/24 04/08/24 04/09/24 23:59 23:59 23:59 Intake Total 1230 / 1230 1860 / 1860 1900 / 1900 Output Total 2500 / 2500 1850 / 1850 1900 / 1900 Balance -1270 / -1270 0 / 0 Lab / Micro Data 04/05/24 05:00 04/05/24 05:00 Physical Exam Const alert, oriented x3 and no apparent distress General Appearance: cooperative Resp clear to auscultation bilaterally Cardio regular rate, regular rhythm, no murmurs and no gallops Cardio Narrative: No ectopy GI normal to inspection, nondistended, normoactive bowel sounds, soft to palpation and non-tender GI Narrative: No guarding with palpation Extremity no calf tenderness Extremity Narrative: No longer complaining of knee pain. 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 Continue therapy 2. Continue Wellbutrin 150 mg p.o. daily in the a.m. 3. Continue to adjust blood pressure medications as indicated to get the blood pressure consistently less than 130/80. Current antihypertensives include lisinopril 30 mg daily, hydralazine 50 mg 3 times daily and diltiazem CD1 180 mg daily. Charges/Coding Visit Charges Inpatient E&M: 84288 [facility] Hosp L1
[2024-04-09] MEDS: Atorvastatin Calcium 80 MG Tablet PO (21:07)
[2024-04-09] MEDS: Acetaminophen 500 MG Tablet 1000 MG PO (21:07)
[2024-04-10] VITALS (9 sets, daily range): BP systolic 114–162; BP diastolic 60–87; PULSE 72–87; RESP 16–18; TEMP 36.3–36.8; O2SAT 95–96; BMI 28.4
[2024-04-10] MEDS: buPROPion (XL) 150 MG TABLET.XL PO (06:43)
[2024-04-10] MEDS: Enoxaparin 40 MG/0.4 ML Syringe SC (06:43)
[2024-04-10] MEDS: hydrALAZINE 50 MG Tablet PO ×3 (06:44→21:05)
[2024-04-10] MEDS: Aspirin E.C. 81 MG Tablet PO (07:39)
[2024-04-10] MEDS: Arthritis Pain Compound 60 CLICK TUBE TOPICAL ×2 (07:40→21:03)
[2024-04-10] MEDS: Lisinopril 10 MG Tablet 30 MG PO (07:40)
[2024-04-10] MEDS: dilTIAZem CD 180 MG Capsule PO (09:06)
[2024-04-10] MEDS: Senna/Docusate Sodium 1 Tablet 2 TABLET PO (10:29)
[2024-04-10] MEDS: Acetaminophen 500 MG Tablet 1000 MG PO (21:04)
[2024-04-10] MEDS: Atorvastatin Calcium 80 MG Tablet PO (21:04)
[2024-04-11] VITALS (8 sets, daily range): BP systolic 128–177; BP diastolic 68–88; PULSE 77–97; RESP 17–18; TEMP 36.4–36.5; O2SAT 94–96; BMI 28.4
[2024-04-11] MEDS: buPROPion (XL) 150 MG TABLET.XL PO (06:00)
[2024-04-11] MEDS: Enoxaparin 40 MG/0.4 ML Syringe SC (06:00)
[2024-04-11] MEDS: hydrALAZINE 50 MG Tablet PO ×3 (06:02→21:28)
[2024-04-11] MEDS: Senna/Docusate Sodium 1 Tablet 2 TABLET PO (06:06)
[2024-04-11] MEDS: Aspirin E.C. 81 MG Tablet PO (10:48)
[2024-04-11] MEDS: Lisinopril 10 MG Tablet 30 MG PO (10:48)
[2024-04-11] MEDS: Arthritis Pain Compound 60 CLICK TUBE TOPICAL ×2 (10:49→21:25)
[2024-04-11] MEDS: dilTIAZem CD 180 MG Capsule PO (10:50)
[2024-04-11] MEDS: Atorvastatin Calcium 80 MG Tablet PO (21:25)
[2024-04-11] MEDS: Acetaminophen 500 MG Tablet 1000 MG PO (21:25)
[2024-04-12] VITALS (9 sets, daily range): BP systolic 129–172; BP diastolic 64–86; PULSE 80–101; RESP 17–18; TEMP 36.6; O2SAT 95–96; BMI 28.4
[2024-04-12] MEDS: hydrALAZINE 50 MG Tablet PO ×3 (05:30→21:40)
[2024-04-12] MEDS: Enoxaparin 40 MG/0.4 ML Syringe SC (05:30)
[2024-04-12] MEDS: buPROPion (XL) 150 MG TABLET.XL PO (06:25)
[2024-04-12] MEDS: dilTIAZem CD 180 MG Capsule PO ×2 (07:49→21:40)
[2024-04-12] MEDS: Aspirin E.C. 81 MG Tablet PO (07:49)
[2024-04-12] MEDS: Lisinopril 10 MG Tablet 30 MG PO (07:49)
[2024-04-12] MEDS: Arthritis Pain Compound 60 CLICK TUBE TOPICAL ×2 (07:50→21:41)
--- NOTE | 2024-04-12 11:42 | PCM.PROGNOTE ---
Subjective Subjective Afebrile VSS -blood pressure has come under much better control blood pressures today have ranged from 132/64 to 148/83. Heart rate is in the 80s. Blood pressure last night was elevated at 177/88 but she was c/o dizziness and was anxious. Maintaining appropriate oxygen saturation on RA Oral intake - FOOD good FLUIDS good Weight is stable. Discussed with nursing - no problems that need addressed. Impulsivity has improved. Reviewed the THERAPY notes - Raulito was complaining to therapy today that she feels lightheaded. She was touching things to help her keep her balance. Orthostatic VS's are negative. Medication list reviewed. Raulito has several vague complaints today. She felt like her R leg was weaker this morning but, that is gone. She feels woozy when she gets up fast or when she quickly looks to the left or right. She denies vertigo. Her shoulder felt sore today. Her knees were painful. She wants to associate these complaints with taking medication. I discussed that anyone taking BP medication can fell lightheaded if they stand up fast and go. 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 We also discussed that so0 days she is going to feel weaker and more fatigued, this is the nature of having a stroke. I also reinforced with her that she is 83 and it is normal to have joint aches and pains due to OA. Objective Data Objective Data Vital Signs: Vital Signs Temp Pulse Resp BP Pulse Ox O2 Del Method 97.9 F 86 18 148/83 H 95 Room Air 04/12/24 05:28 04/12/24 11:22 04/12/24 05:28 04/12/24 11:22 04/12/24 05:28 04/12/24 05:28 Oxygen Delivery Method Room Air Weight: 155 lb 6.814 oz Body Mass Index (BMI) 28.4 Intake & Output: Intake and Output for Last 24 Hours 04/10/24 04/11/24 04/12/24 23:59 23:59 23:59 Intake Total 2034 / 2034 2260 / 2260 150 / 150 Output Total 3075 / 3075 3850 / 3850 500 / 500 Balance -1040 / -1040 -1590 / -1590 -350 / -350 Lab / Micro Data 04/05/24 05:00 04/05/24 05:00 Physical Exam Const alert and no apparent distress Constitutional Narrative: Sitting in the recliner at the bedside. General Appearance: cooperative HEENT moist oral mucous membranes Eyes PERRL and EOMs intact bilaterally Eyes Narrative: No nystagmus. Resp normal respiratory effort, normal air movement and clear to auscultation bilaterally Effort and Inspection: Negative for tachypneic Cardio regular rate and regular rhythm Cardio Narrative: No ectopy GI normal to inspection, nondistended, normoactive bowel sounds, soft to palpation and non-tender Extremity no calf tenderness General Extremity: Negative for edema Skin General Skin Exam: no breakdown Rashes: no rashes Neuro Neuro Narrative: There is mild weakness in the R leg with extension at the knee.........this has improved significantly since admission. Mild decrease in flexion at the knee as well and once again this is much better than at admission to rehab. Coordination in the R dominant hand is still impaired but, she is making progress. She has a mild R facial droop when her face is relaxed but, when she smiles there is no deficit. Speech is normal. No aphasia. Psych cooperative Psych Narrative: Affect is a little flat today. 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 Continue therapy 2. Check a CBC and BMP now. 3. She is on 3 different BP medications. TSH and Cortisol are normal. Would like to have her get a CTA of the renal arteries Charges/Coding Visit Charges Inpatient E&M: 82842 Subs Hosp L1
[2024-04-12 12:33] LABS: Hematocrit 42.8 % (37-47); Hemoglobin 14.2 g/dL (12.0-15.0); Mean Corp Hgb Conc 33.2 g/dL (32-36); Mean Corpuscular Hgb 29.8 pg (27.0-32.0); Mean Corpuscular Volume 89.7 fL (81-99); Platelet Count 280 K/mm3 (150-450); RBC Distribution Width CV 12.8 % (11.6-14.6); RBC Distribution Width SD 42.5 fl (35.1-43.9); Red Blood Count 4.77 M/mm3 (4.2-5.4); White Blood Count 7.4 K/mm3 (4.4-11.0)
[2024-04-12 13:01] LABS: Anion Gap 6 (5-15); BUN 12 mg/dL (7-18); BUN/Creat Ratio 12.4 RATIO (10-20); Calcium,Total 9.2 mg/dL (8.5-10.1); Chloride 96 mmol/L (98-107); Creatinine, Serum 0.97 mg/dL (0.55-1.02); EST Glomerular Filtration Rate 58 mL/min (>60); Est Glom Filt Rate - Afr Amer 71 mL/min (>60); Estimated Creatinine Clearance 40.42 ml/min; Glucose 114 mg/dL (74-106); Sodium Level 128 mmol/L (136-145)
--- NOTE | 2024-04-12 14:13 | CASEMGMT ---
Addendum entered by Aubrey Ledesma 04/12/24 16:30: SW received notification of insurance next review date: 04/19/2024. SW notified patient at bedside. Original Note: Social Work Patient requested update regarding insurance update. SW met with patient at bedside to provide notice that insurance update is currently pending review. Patient informed SW that she is hoping to obtain authorization to stay another week. Patient informed SW that she would like to discharge on 04/21 before the holidays. Patient informed SW that she would like an update regarding insurance determination when appropriate. SW will continue to follow to provide update. MARCELLE Haile
[2024-04-12] MEDS: Atorvastatin Calcium 80 MG Tablet PO (21:40)
[2024-04-12] MEDS: Acetaminophen 500 MG Tablet 1000 MG PO (21:41)
[2024-04-13 06:00] VITALS: BP 135/76; PULSE 80; RESP 17; TEMP 36.3; O2SAT 94
[2024-04-13 07:00] VITALS: PULSE 74
[2024-04-13] MEDS: hydrALAZINE 50 MG Tablet PO (07:00)
[2024-04-13] MEDS: buPROPion (XL) 150 MG TABLET.XL PO (07:00)
[2024-04-13] MEDS: Enoxaparin 40 MG/0.4 ML Syringe SC (07:00)
--- NOTE | 2024-04-13 08:48 | PN_ITS ---
Subjective Subjective Afebrile VSS -blood pressure this morning is 135/76. Blood pressure was elevated at bedtime at 172/85. Heart rate is better with the increase in the Cardizem CD to 180 mg twice daily. Maintaining appropriate oxygen saturation on -94 to 96% Oral intake - FOOD good FLUIDS good Discussed with nursing - no problems that need addressed Reviewed the THERAPY notes Medication list reviewed. Continues to complain about fluid restriction. I was again explained to her why she is on fluid restriction. She denies cephalgia, chest pain, shortness of breath, nausea/vomiting/abdominal pain, dysuria and calf tenderness. She is complaining of feeling dizzy. She denies any spinning sensation and she has no vertigo/nystagmus. Objective Data Objective Data Vital Signs: Vital Signs Temp Pulse Resp BP Pulse Ox O2 Del Method 97.3 F L 74 17 135/76 H 94 Room Air 04/13/24 06:00 04/13/24 07:00 04/13/24 06:00 04/13/24 06:00 04/13/24 06:00 04/13/24 06:00 Oxygen Delivery Method Room Air Weight: 155 lb 6.814 oz Body Mass Index (BMI) 28.4 Intake & Output: Intake and Output for Last 24 Hours 04/11/24 04/12/24 04/13/24 23:59 23:59 23:59 Intake Total 2260 / 2260 1170 / 1410 600 / 600 Output Total 3850 / 3850 1450 / 1450 350 / 350 Balance -1590 / -1590 -280 / -40 250 / 250 Lab / Micro Data 04/12/24 12:25 04/15/24 05:07 Labs: Laboratory Results - last 24 hr 04/12/24 12:25: WBC 7.4, RBC 4.77, Hgb 14.2, Hct 42.8, MCV 89.7, MCH 29.8, MCHC 33.2, RDW Std Deviation 42.5, RDW Coeff of Belkys 12.8, Plt Count 280, MPV 10.0, S odium 128 L, Potassium 4.0, Chloride 96 L, Carbon Dioxide 26.0, Anion Gap 6, BUN 12, Creatinine 0.97, Estim Creat Clear Calc 40.42, Est GFR (MDRD) Af Amer 71, E st GFR (MDRD) Non-Af 58 L, BUN/Creatinine Ratio 12.4, Glucose 114 H, Calcium 9.2 Physical Exam Const alert, oriented x3 and no apparent distress Constitutional Narrative: sitting in the recliner at the bedside with her legs dependent. General Appearance: cooperative Eyes PERRL and EOMs intact bilaterally Eyes Narrative: No nystagmus Resp normal respiratory effort, normal air movement and clear to auscultation bilaterally Cardio regular rate, regular rhythm and no gallops GI normal to inspection, nondistended, normoactive bowel sounds, soft to palpation and non-tender Extremity no calf tenderness General Extremity: Negative for edema Skin General Skin Exam: no breakdown Rashes: no rashes Neuro Neuro Narrative: She is better with being able to attend with what is being said to her but, I have to explain to her everyday about the fluid restriction. Short term memory is still impaired. Strength on the R side is much better than admission to rehab.........at times she does not seem to realize this and complains about the the R leg being heavy. When she is ambulating with the cane she puts the cane way out in front of her and lurches. It is not a [id number] synchronous gait. Coordination / Balance: [id number] test normal and [id number] test normal Speech: speech normal Gait (Neuro): Negative for normal gait Psych Psych Narrative: sleeping better at night than at admission. Attitude: No agitated Assessment & Plan Assessment/Plan (1) Physical debility: (2) Ischemic cerebrovascular accident (CVA): (3) Uncontrolled hypertension: (4) Insomnia disorder: QUALIFIERS: Insomnia type: primary Qualified Code(s): F51.01 - Primary insomnia (5) Attention deficit disorder: QUALIFIERS: Hyperactivity presence: absent Qualified Code(s): 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 Continue therapy 2. I really do not think she is going to be compliant with Hydralazine TID and I suspect that she really needs to take this medication QID because it wears off in the evening. She did not respond well to a beta keerthi and she develops hyponatremia on BELL. Await the results of repeat lab on . If the sodium is normal would consider adding a low dose thiazide diuretic. She may do well with a Catapres TTS patch.......would need to monitor closely for bradycardia. Will DC Hydralazine today and start Catapres TTS-2 patch. Charges/Coding Visit Charges Inpatient E&M: 41018 Subs Hosp L1
[2024-04-13] MEDS: Arthritis Pain Compound 60 CLICK TUBE TOPICAL (09:09)
[2024-04-13] MEDS: dilTIAZem CD 180 MG Capsule PO ×2 (09:09→20:58)
[2024-04-13] MEDS: Aspirin E.C. 81 MG Tablet PO (09:09)
[2024-04-13 09:11] VITALS: BP 110/48; PULSE 87; RESP 16; O2SAT 98
[2024-04-13] MEDS: cloNIDine HCl 0.2 MG Patch TD (12:15)
[2024-04-13 12:52] VITALS: BMI 28.4
[2024-04-13 13:48] VITALS: BP 158/70; PULSE 78
[2024-04-13 17:07] VITALS: BP 144/79; PULSE 85; RESP 16; TEMP 36.6; O2SAT 94
[2024-04-13 20:00] VITALS: BP 148/70; PULSE 80; RESP 17; TEMP 36.5; O2SAT 95
[2024-04-13] MEDS: Atorvastatin Calcium 80 MG Tablet PO (20:59)
[2024-04-13] MEDS: Acetaminophen 500 MG Tablet 1000 MG PO (20:59)
[2024-04-13 23:29] VITALS: BMI 28.4
[2024-04-14] MEDS: Enoxaparin 40 MG/0.4 ML Syringe SC (04:56)
[2024-04-14] MEDS: Acetaminophen 500 MG Tablet 1000 MG PO ×2 (04:59→21:42)
[2024-04-14 06:00] VITALS: BP 132/52; PULSE 77; BMI 29.0
[2024-04-14] MEDS: dilTIAZem CD 180 MG Capsule PO ×2 (07:33→20:39)
[2024-04-14] MEDS: Arthritis Pain Compound 60 CLICK TUBE TOPICAL ×2 (07:33→20:38)
[2024-04-14] MEDS: buPROPion (XL) 150 MG TABLET.XL PO (07:33)
[2024-04-14] MEDS: Aspirin E.C. 81 MG Tablet PO (07:33)
[2024-04-14] MEDS: Senna/Docusate Sodium 1 Tablet 2 TABLET PO (07:38)
[2024-04-14 10:00] VITALS: BP 128/72; PULSE 78
[2024-04-14 14:00] VITALS: BP 117/66; PULSE 63; RESP 16; TEMP 37; O2SAT 100
[2024-04-14 15:24] VITALS: BMI 29.0
[2024-04-14] MEDS: Bisacodyl 10 MG Suppository RC (16:18)
[2024-04-14 17:43] VITALS: BP 109/66; PULSE 78; RESP 17; TEMP 36.6; O2SAT 98
[2024-04-14 20:30] VITALS: BP 127/77; PULSE 75; RESP 16; TEMP 36.7; O2SAT 97
[2024-04-14] MEDS: Atorvastatin Calcium 80 MG Tablet PO (20:39)
[2024-04-15 03:57] VITALS: BMI 29.0
[2024-04-15 05:45] LABS: Anion Gap 6 (5-15); BUN 13 mg/dL (7-18); Chloride 95 mmol/L (98-107); EST Glomerular Filtration Rate 56 mL/min (>60); Est Glom Filt Rate - Afr Amer 68 mL/min (>60); Estimated Creatinine Clearance 39.64 ml/min; Glucose 121 mg/dL (74-106); Potassium 4.6 mmol/L (3.5-5.1); Sodium Level 127 mmol/L (136-145)
[2024-04-15 06:00] VITALS: BP 117/51; PULSE 73
[2024-04-15] MEDS: Enoxaparin 40 MG/0.4 ML Syringe SC (06:11)
[2024-04-15] MEDS: buPROPion (XL) 150 MG TABLET.XL PO (08:01)
[2024-04-15] MEDS: Aspirin E.C. 81 MG Tablet PO (08:01)
[2024-04-15] MEDS: dilTIAZem CD 180 MG Capsule PO ×2 (08:02→21:21)
--- NOTE | 2024-04-15 09:44 | PN_ITS ---
Subjective Subjective Raulito was seen on TEAM rounds today. Dtr Bárbara was present in the room and all questions were answered. TEAM recommends she has someone with her for the first few weeks she is home and that she have OP therapy at [place]. Afebrile VSS -blood pressure is now well-controlled and has ranged from 109/66 to 158/70 over the past 48 hours. Heart rate is within normal limits. Maintaining appropriate oxygen saturation on RA Oral intake - FOOD good FLUIDS good. review of the I&O's show her to be in negative fluid balance however the weight is up and she has moist MM so I presume we are not capturing everything she is drinking. Weight is up 5 pounds since admission to rehab. Discussed with nursing - no problems that need addressed Reviewed the THERAPY notes Medication list reviewed. All lab from today was personally reviewed. Sodium is 127 and the potassium is 4.6. Chloride is 95 and the serum bicarb is 26. BUN is stable at 13 and the creatinine is 1.0. Lisinopril was discontinued After the dose on Friday. She is telling me that she does not feel well. She denies vertigo but, c/o dizziness and tells me that when I turn my head I feel like I am going to black out. She thinks her BP is too low for me. I pointed out that the BP is normal.......she said I know. She denies SAINI. She denies chest pain, cephalgia, shortness of breath, cough, nausea/vomiting/abdominal pain/heartburn, dysuria and calf tenderness. Objective Data Objective Data Vital Signs: Vital Signs Temp Pulse Resp BP Pulse Ox O2 Del Method 98.0 F 73 16 117/51 L 97 Room Air 04/14/24 20:30 04/15/24 06:00 04/14/24 20:30 04/15/24 06:00 04/14/24 20:30 04/14/24 20:30 Oxygen Delivery Method Room Air Weight: 159 lb Body Mass Index (BMI) 29.0 Intake & Output: Intake and Output for Last 24 Hours 04/13/24 04/14/24 04/15/24 23:59 23:59 23:59 Intake Total 1440 / 1440 1420 / 1420 640 / 640 Output Total 1600 / 1600 1350 / 1350 1600 / 1600 Balance -160 / -160 70 / 70 -960 / -960 Lab / Micro Data 04/12/24 12:25 04/15/24 05:07 Labs: Laboratory Results - last 24 hr 04/15/24 05:07: Sodium 127 L, Potassium 4.6, Chloride 95 L, Carbon Dioxide 26.0, Anion Gap 6, BUN 13, Creatinine 1.00, Estim Creat Clear Calc 39.64, Est GFR (MDRD) Af Amer 68, Est GFR (MDRD) Non-Af 56 L, BUN/Creatinine Ratio 13.0, G lucose 121 H, Calcium 9.0 Physical Exam Const alert and no apparent distress Constitutional Narrative: Sitting in the recliner at the bedside. General Appearance: cooperative HEENT moist oral mucous membranes Eyes PERRL and EOMs intact bilaterally Eyes Narrative: No nystagmus. Resp normal respiratory effort, normal air movement and clear to auscultation bilaterally Effort and Inspection: Negative for tachypneic Cardio regular rate and regular rhythm Cardio Narrative: No ectopy GI normal to inspection, nondistended, normoactive bowel sounds, soft to palpation and non-tender Extremity no calf tenderness General Extremity: Negative for edema Skin General Skin Exam: no breakdown Rashes: no rashes Neuro Neuro Narrative: the strength on the R side has increased significantly with therapy. She is still having a problem with attention span and when given a task by ST she is unable to recognize her errors with med management and other things.......like finances. She has mild dysmetria with the RUE but, no ataxia any longer with the R leg. No visual visual or tactile extinction. Facial droop has resolved. Psych affect normal Assessment & Plan Assessment/Plan (1) Physical debility: (2) Ischemic cerebrovascular accident (CVA): (3) Uncontrolled hypertension: (4) Insomnia disorder: QUALIFIERS: Insomnia type: primary Qualified Code(s): F51.01 - Primary insomnia (5) Attention deficit disorder: QUALIFIERS: Hyperactivity presence: absent Qualified Code(s): 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 Continue therapy 2. Check orthostatics today 3. Check a urine sodium and a urine and serum osmolality. 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 She was receiving 30 mg and it is going to take a few days to wash out of her system completely. She is on 1500 cc/day fluid restriction. Charges/Coding Visit Charges Inpatient E&M: 90158 Subs Hosp L2
[2024-04-15 09:47] VITALS: BP 119/67; PULSE 68; RESP 16; TEMP 36.8; O2SAT 100
[2024-04-15 10:05] VITALS: BMI 29.0
[2024-04-15 10:33] VITALS: BP 113/61; BP 123/67; BP 94/52; PULSE 66; PULSE 68; PULSE 70
[2024-04-15 12:21] LABS: Osmolality, Serum 266 mOsm/KG (280-301)
--- NOTE | 2024-04-15 13:06 | CASEMGMT ---
Social Work- Teams Meeting IDT met with patient and daughter at bedside to complete care plans. Discussed patient progress with therapy (PT/OT/ST) and nursing. Patient is progressing with therapy; recommendations for outpatient care. Patient will require assistance for dressing and bathing. Therapy is recommending assistance for a few weeks to help patient dress/transfer. Patient has cognitive deficit for safety awareness, memory, and recall. Speech therapy is recommending family oversight for medication and financial aids officer. GAB educated patient and daughter of [facility] insurance coverage and next review date: 04/19. Patient informed GAB that she would like to have outpatient therapy at [facility]. Patient's daughter informed GAB that she could provide transportation in the afternoon to outpatient therapy. Family is looking into private duty care v. family assistance to monitor home dressing/bathing. Patient and daughter are agreeable to plan for [facility] pending insurance review outcome. Patient denies any DME needed at this time. GAB will continue to follow to support discharge. MARCELLE Haile
[2024-04-15 14:00] VITALS: BP 130/69; PULSE 63
[2024-04-15] MEDS: Sodium Chloride 1 GM Tablet PO ×2 (15:24→21:20)
[2024-04-15 15:44] LABS: Mucous, Urine 0 SEEN /hpf (<or=2+)
[2024-04-15 15:54] LABS: Color, Urine Yellow (Yellow); Glucose, Dipstick Normal (Normal); Ketone-Dipstick Negative (Negative); Leukocyte Esterase-Dipstick 500 /ul (Negative); Nitrite-Dipstick Negative (Negative); Occult Blood-Urine 25 /ul (Negative); Protein-Dipstick 30 mg/dl (Negative); Urine Bilirubin Dipstick Negative (Negative); Urine Clarity Sl. Cloudy (Clear); Urine Urobilinogen Normal (Normal)
[2024-04-15 15:58] LABS: Urine Sodium 9 mmol/L (Not Establ.)
[2024-04-15 16:11] LABS: Osmolality, Urine 194 mOsm/KG
[2024-04-15 16:13] LABS: Bacteria 2+ /hpf (None Seen); Red Blood Cells-Urine 0-5 SEEN /hpf (0-5); White Blood Cells 50-100 SEEN /hpf (0-5)
[2024-04-15 16:14] LABS: Squamous Epithelial Cells - UA 0-5 SEEN /hpf (5-10)
[2024-04-15 18:00] VITALS: BP 150/80; PULSE 73
[2024-04-15 21:19] VITALS: BP 151/75; PULSE 70; RESP 16; TEMP 37.1; O2SAT 97
[2024-04-15] MEDS: Atorvastatin Calcium 80 MG Tablet PO (21:20)
[2024-04-15] MEDS: Acetaminophen 500 MG Tablet 1000 MG PO (21:20)
[2024-04-15] MEDS: cloNIDine HCl 0.1 MG Patch TD (21:21)
[2024-04-15] MEDS: Arthritis Pain Compound 60 CLICK TUBE TOPICAL (21:21)
[2024-04-15 22:16] VITALS: BMI 29.0
[2024-04-16] MEDS: buPROPion (XL) 150 MG TABLET.XL PO (05:17)
[2024-04-16] MEDS: Enoxaparin 40 MG/0.4 ML Syringe SC (05:18)
[2024-04-16] MEDS: Sodium Chloride 1 GM Tablet PO ×3 (05:18→22:22)
[2024-04-16 06:00] VITALS: BP 145/70; PULSE 71
[2024-04-16] MEDS: Aspirin E.C. 81 MG Tablet PO (07:26)
[2024-04-16] MEDS: dilTIAZem CD 180 MG Capsule PO ×2 (07:26→22:23)
[2024-04-16 09:57] VITALS: BP 106/64; PULSE 70; RESP 17; TEMP 36.6; O2SAT 96
[2024-04-16 09:58] VITALS: BMI 29.0
[2024-04-16 11:16] LABS: Bacteria 0 SEEN /hpf (None Seen); Mucous, Urine 0 SEEN /hpf (<or=2+); Red Blood Cells-Urine 0 SEEN /hpf (0-5)
[2024-04-16 11:21] LABS: Color, Urine Straw (Yellow); Glucose, Dipstick Normal (Normal); Ketone-Dipstick Negative (Negative); Leukocyte Esterase-Dipstick 500 /ul (Negative); Nitrite-Dipstick Negative (Negative); Occult Blood-Urine 10 /ul (Negative); Protein-Dipstick 15 mg/dl (Negative); Urine Bilirubin Dipstick Negative (Negative); Urine Clarity Sl. Cloudy (Clear); Urine Urobilinogen Normal (Normal)
[2024-04-16 11:30] LABS: Squamous Epithelial Cells - UA 0-5 SEEN /hpf (5-10); White Blood Cells 25-50 SEEN /hpf (0-5)
[2024-04-16 13:11] VITALS: BP 115/64; PULSE 71
[2024-04-16 16:18] VITALS: BP 124/67; BP 130/74; BP 135/71; PULSE 67; PULSE 69; PULSE 75
[2024-04-16 18:00] VITALS: BP 122/66; PULSE 77
[2024-04-16 22:00] VITALS: BP 142/71; PULSE 65; RESP 17; TEMP 36.6; O2SAT 97
[2024-04-16] MEDS: Senna/Docusate Sodium 1 Tablet 2 TABLET PO (22:22)
[2024-04-16] MEDS: Arthritis Pain Compound 60 CLICK TUBE TOPICAL (22:22)
[2024-04-16] MEDS: Atorvastatin Calcium 80 MG Tablet PO (22:22)
[2024-04-16] MEDS: Acetaminophen 500 MG Tablet 1000 MG PO (22:22)
[2024-04-17 00:36] VITALS: BMI 29.0
[2024-04-17 06:00] VITALS: BP 140/78; PULSE 68; RESP 16; TEMP 36.9; O2SAT 96
[2024-04-17] MEDS: Enoxaparin 40 MG/0.4 ML Syringe SC (06:29)
[2024-04-17] MEDS: Sodium Chloride 1 GM Tablet PO ×3 (06:29→22:03)
[2024-04-17] MEDS: buPROPion (XL) 150 MG TABLET.XL PO (06:29)
[2024-04-17] MEDS: dilTIAZem CD 180 MG Capsule PO ×2 (07:58→22:03)
[2024-04-17] MEDS: Aspirin E.C. 81 MG Tablet PO (07:58)
[2024-04-17 08:50] VITALS: BMI 29.0
[2024-04-17 09:15] LABS: Absolute Lymphocyte Count 1.18 X10^3/uL (0.83-4.51); Absolute Neutrophil Count 2.9 X10^3/uL (2.0-7.7); Basophil# 0.05 X10^3/uL; Eosinophil# 0.15 X10^3/uL; Hematocrit 38.9 % (37-47); Lymphocyte # 1.18 X10^3/ul (0.83-4.51); Lymphocyte % 23.9 % (19-41); Mean Corp Hgb Conc 33.4 g/dL (32-36); Mean Corpuscular Volume 89.8 fL (81-99); Mean Platelet Vol. 10.1 fl (6.2-12.0); Monocyte% 14.2 % (0-10); NRBC Flagged by Analyzer 0 % (0-5); Neutrophil # 2.85 X10^3/uL (2.7-7.7); Neutrophil % 57.7 % (47-70); Platelet Count 267 K/mm3 (150-450); RBC Distribution Width CV 12.6 % (11.6-14.6); RBC Distribution Width SD 41.4 fl (35.1-43.9); Red Blood Count 4.33 M/mm3 (4.2-5.4); White Blood Count 4.9 K/mm3 (4.4-11.0)
[2024-04-17 09:53] VITALS: BP 154/70; PULSE 70; RESP 16; TEMP 36.5; O2SAT 95
--- NOTE | 2024-04-17 09:54 | NURSING ---
Assisted pt to bathroom and stayed in room. Twice this nurse heard the water turned on, when opening door, found pt still sitting on toilet stating she was not done yet. Checked area afterwards for any cups, non present. This nurse feeling pt is using her hand to obtain more water to drink. Education provided this am about dangers of low sodium and importance of following fluid restrictions.
[2024-04-17 10:35] LABS: Anion Gap 7 (5-15); BUN 13 mg/dL (7-18); BUN/Creat Ratio 12.7 RATIO (10-20); Calcium,Total 9.2 mg/dL (8.5-10.1); Chloride 100 mmol/L (98-107); Creatinine, Serum 1.02 mg/dL (0.55-1.02); EST Glomerular Filtration Rate 55 mL/min (>60); Est Glom Filt Rate - Afr Amer 67 mL/min (>60); Estimated Creatinine Clearance 38.86 ml/min; Glucose 101 mg/dL (74-106); Potassium 4.3 mmol/L (3.5-5.1); Sodium Level 133 mmol/L (136-145)
[2024-04-17 14:00] VITALS: BP 142/80; PULSE 68
[2024-04-17 17:39] VITALS: BP 164/83; PULSE 72
[2024-04-17 21:43] VITALS: BP 157/81; PULSE 73; RESP 18; TEMP 37.2; O2SAT 95
[2024-04-17] MEDS: Acetaminophen 500 MG Tablet 1000 MG PO (22:02)
[2024-04-17] MEDS: Atorvastatin Calcium 80 MG Tablet PO (22:03)
[2024-04-18 02:58] VITALS: BMI 29.0
[2024-04-18 06:00] VITALS: BP 142/80; PULSE 82; RESP 17; TEMP 37.3; O2SAT 97
[2024-04-18] MEDS: Sodium Chloride 1 GM Tablet PO ×3 (06:24→21:01)
[2024-04-18] MEDS: Enoxaparin 40 MG/0.4 ML Syringe SC (06:24)
[2024-04-18] MEDS: buPROPion (XL) 150 MG TABLET.XL PO (06:25)
[2024-04-18] MEDS: Senna/Docusate Sodium 1 Tablet 2 TABLET PO ×2 (06:29→21:01)
[2024-04-18] MEDS: Aspirin E.C. 81 MG Tablet PO (08:16)
[2024-04-18] MEDS: dilTIAZem CD 180 MG Capsule PO ×2 (08:16→21:01)
[2024-04-18] MEDS: Arthritis Pain Compound 60 CLICK TUBE TOPICAL (08:26)
[2024-04-18 09:53] VITALS: BP 136/65; PULSE 72; RESP 16; TEMP 36.6; O2SAT 98
[2024-04-18 10:48] VITALS: BMI 29.0
[2024-04-18 13:57] VITALS: BP 136/68; PULSE 66
[2024-04-18 17:48] VITALS: BP 149/78; PULSE 68
[2024-04-18 20:32] VITALS: BP 156/88; PULSE 69; RESP 15; TEMP 36.9; O2SAT 97
[2024-04-18] MEDS: Atorvastatin Calcium 80 MG Tablet PO (21:01)
[2024-04-18] MEDS: Acetaminophen 500 MG Tablet 1000 MG PO (21:01)
[2024-04-19] MEDS: Sodium Chloride 1 GM Tablet PO ×3 (05:42→21:32)
[2024-04-19] MEDS: buPROPion (XL) 150 MG TABLET.XL PO (05:42)
[2024-04-19] MEDS: Enoxaparin 40 MG/0.4 ML Syringe SC (05:42)
[2024-04-19 05:45] VITALS: BP 155/75; PULSE 70; RESP 16; TEMP 37.1; O2SAT 94
[2024-04-19] MEDS: Arthritis Pain Compound 60 CLICK TUBE TOPICAL ×2 (08:10→21:33)
[2024-04-19] MEDS: Aspirin E.C. 81 MG Tablet PO (08:10)
[2024-04-19] MEDS: dilTIAZem CD 180 MG Capsule PO ×2 (08:10→21:32)
--- NOTE | 2024-04-19 09:50 | PCM.PROGNOTE ---
Subjective Subjective Afebrile VSS -blood pressure Over the weekend has ranged from 136/65 to 164/83. Orthostatic vital signs were negative on Friday. HR is normal. Maintaining appropriate oxygen saturation on RA Oral intake - FOOD good FLUIDS fluid balance is not accurate. Nursing reports patient has been drinking water from the sink when she is in the BR. Discussed with nursing - no problems that need addressed other than the non-compliance with fluid restriction. Reviewed the THERAPY notes and discussed with the TEAM today. Short term memory is still poor. The unfortunate thing is she does not realize her cognitive deficits. She is able to focus and attend what is being said to her since the Wellbutrin was started but, memory has not improved. She would not be safe with medication at home without someone supervising the medication set up and then checking to make sure she actually took the medicine. Medication list reviewed. Sodium on Friday morning was 133 which is up from 127 on 04/15/2024. Potassium was normal and the BUN was 13 with a creatinine of 1.02. Straight cath UA on Friday showed 25-50 WBCs per high-power field with no bacteria seen. Urine culture had no growth. She wants to go home Friday for the holiday. The TEAM thinks she has plateaued and actually her performance in therapy has been declining a bit..........the fear is she is becoming institutionalized. Did not complain about lightheadedness to me today. She has no CP, SOB, dysuria, N/V or calf tenderness. Objective Data Objective Data Vital Signs: Vital Signs Temp Pulse Resp BP Pulse Ox O2 Del Method 98.7 F 70 16 155/75 H 94 Room Air 04/19/24 05:45 04/19/24 05:45 04/19/24 05:45 04/19/24 05:45 04/19/24 05:45 04/19/24 05:45 Oxygen Delivery Method Room Air Weight: 159 lb Body Mass Index (BMI) 29.0 Intake & Output: Intake and Output for Last 24 Hours 04/17/24 04/18/24 04/19/24 23:59 23:59 23:59 Intake Total 1410 / 1410 1447 / 1447 110 / 110 Output Total 1300 / 1300 800 / 800 900 / 900 Balance 110 / 110 647 / 647 -790 / -790 Lab / Micro Data 04/17/24 08:48 04/20/24 05:05 Micro: Microbiology 04/16/24 11:08 Urine Catheter - Catheter Urine Culture - Final Culture exhibits no growth. Physical Exam Const alert and no apparent distress Constitutional Narrative: Sitting in the recliner at the bedside. General Appearance: cooperative Eyes PERRL and EOMs intact bilaterally Eyes Narrative: No nystagmus. Resp normal respiratory effort, normal air movement and clear to auscultation bilaterally Effort and Inspection: Negative for tachypneic Cardio regular rate and regular rhythm Cardio Narrative: No ectopy GI normal to inspection, nondistended, normoactive bowel sounds, soft to palpation and non-tender Extremity no calf tenderness General Extremity: Negative for edema Skin General Skin Exam: no breakdown Rashes: no rashes Psych affect normal Assessment & Plan Assessment/Plan (1) Physical debility: (2) Ischemic cerebrovascular accident (CVA): (3) Uncontrolled hypertension: (4) Insomnia disorder: QUALIFIERS: Insomnia type: primary Qualified Code(s): F51.01 - Primary insomnia (5) Attention deficit disorder: QUALIFIERS: Hyperactivity presence: absent Qualified Code(s): F98.8 - Other specified behavioral and emotional disorders with onset usually occurring in childhood and adolescence (6) Cognitive dysfunction: (7) Carotid artery stenosis: QUALIFIERS: Laterality: bilateral Qualified Code(s): I65.23 - Occlusion and stenosis of bilateral carotid arteries (8) Hyperlipidemia: QUALIFIERS: Hyperlipidemia type: unspecified Qualified Code(s): E78.5 - Hyperlipidemia, unspecified PLAN: Plan 1. Continue therapy today and tomorrow and plan on DC on Friday to home with OP PT/OT/ST. She uses [facility] in [place]. 2. will need to have family assist in medication and financial supervisor. 3. We discussed whether or not she wanted to continue Wellbutrin and she told me maybe, for a while. 4. BP is not optimally controlled and more often than not the systolic is >130. diastolics are for the most part < 80. Orthostatics were negative today. 5. Decrease the salt tabs to 1 gm BID. 6. Recheck a BMP in the AM. Will leave the fluid restriction in place........this may at least deter her fluid intake some.......even though she is known to be non-compliant with the fluid restriction. 7. No driving at DC from rehab. Will have the SW give info on the Driving rehab program at [facility]. Charges/Coding Visit Charges Inpatient E&M: 53742 Subs Hosp L1
[2024-04-19 10:00] VITALS: BP 151/78; PULSE 71
[2024-04-19 11:13] VITALS: BP 148/74; BP 151/78; BP 156/82; PULSE 70; PULSE 71; PULSE 72
[2024-04-19 11:51] VITALS: BMI 28.7
[2024-04-19 14:00] VITALS: BP 133/71; PULSE 70
--- NOTE | 2024-04-19 14:19 | CASEMGMT ---
Addendum entered by Shana Talbert 04/21/24 16:48: requesting referral to [facility]. Referral faxed to Mariel [facility]. Original Note: Social Work IDT discussed pt's progress and recommending DC 04/21. reported to speaking with pt about recommendation and pt agreeable. SW met with pt to follow up on DC plans. Pt agreeable to DC home with 12/05 supervision on 04/21. Pt stated local dtr is off work 04/22 and can assist pt with continued checking in until out-of-town dtr arrives shortly after. SW inquired about OP therapy at [place]. Pt agreed and requesting [facility]. SW inquired about transportation and educated to [facility] Van. Pt requesting to use [facility] Van as she does not want to rely on dtr's for transport. SW agreed and provided resources. Educated to requesting use of van when making appts. Pt expressed understanding. Pt denied any DME needs. SW faxed referral [facility] with use of [facility]. Plan: DC home with dtr's support 04/21, [facility] PT/OT/ST Shnaa Talbert, COMPUTING MACHINE OPERATOR [employer] RENOVATOR
[2024-04-19 15:10] VITALS: BMI 28.7
[2024-04-19 17:11] VITALS: BP 140/76; PULSE 70; RESP 16; TEMP 37.1; O2SAT 97
[2024-04-19] MEDS: Atorvastatin Calcium 80 MG Tablet PO (21:32)
[2024-04-19] MEDS: Acetaminophen 500 MG Tablet 1000 MG PO (21:32)
[2024-04-19 22:00] VITALS: BP 155/70; PULSE 66; RESP 16; TEMP 36.3; O2SAT 98
[2024-04-20] MEDS: Enoxaparin 40 MG/0.4 ML Syringe SC (05:34)
[2024-04-20] MEDS: buPROPion (XL) 150 MG TABLET.XL PO (05:34)
[2024-04-20 05:37] VITALS: BP 144/78; PULSE 67; RESP 15; TEMP 36.9; O2SAT 96
[2024-04-20 06:07] LABS: Anion Gap 6 (5-15); BUN 12 mg/dL (7-18); BUN/Creat Ratio 12.1 RATIO (10-20); Calcium,Total 9.1 mg/dL (8.5-10.1); Chloride 101 mmol/L (98-107); Creatinine, Serum 0.99 mg/dL (0.55-1.02); EST Glomerular Filtration Rate 57 mL/min (>60); Est Glom Filt Rate - Afr Amer 69 mL/min (>60); Estimated Creatinine Clearance 39.79 ml/min; Glucose 117 mg/dL (74-106); Potassium 4.2 mmol/L (3.5-5.1); Sodium Level 135 mmol/L (136-145)
[2024-04-20] MEDS: Aspirin E.C. 81 MG Tablet PO (07:59)
[2024-04-20] MEDS: Sodium Chloride 1 GM Tablet PO ×2 (07:59→22:02)
[2024-04-20] MEDS: dilTIAZem CD 180 MG Capsule PO ×2 (07:59→22:03)
[2024-04-20] MEDS: Arthritis Pain Compound 60 CLICK TUBE TOPICAL ×2 (07:59→22:03)
[2024-04-20 08:30] VITALS: BMI 28.7
[2024-04-20 10:00] VITALS: BP 131/68; PULSE 74
--- NOTE | 2024-04-20 10:22 | NURSING ---
30 day event monitor applied. Educated pt on device, charging, symptom checklist. Also reviewed booklet with pt.
--- NOTE | 2024-04-20 11:36 | DCINST_ITS ---
Discharge Instructions Diet Discharge Diet: Low fat / Low cholesterol and - (fluid restriction of 1.5 liters per day (50 ounces)) Activity Discharge Activity: May Not Drive (I recommend that you complete the Driving program at [facility] in [place] to see if you are safe to drive. ) and - (Use a walker or a cane when ambulating until the physical therapist at [facility] tells you that is is OK to walk without and assistive device. ) Weight Bearing Status: Full weight bearing Keep extremity elevated above heart level: Legs Dressing / Incision Call your doctor if you observe: Fever of 101 or Higher, Shortness of breath, Dizziness, Fainting spells, Swelling in the ankles, Chest pain, Increased palpitations (irregular heartbeat), Calf discomfort and - (STROKE symptoms: facial droop, slurred speech, inability to get words out, weakness on 1 side of the body and not the other, numbness on 1 side of the body and not the other, inability to maintain your balance sitting or standing, vertigo. ) Follow Up Care Please Follow Up With: Radha Quigley MD When: You will also need to follow up with Dr. Small from vascular surgery and Dr. Zayas from neurology. Appts have been scheduled for you. Test Results: Test results from this visit will be discussed in further detail at your follow- up appointment, if applicable. Pending Tests Upon Discharge: none Discharge Plan Admission Admit Date/Time: 03/22/24 15:22 Primary Reason for Your Visit: Post stroke debility. Attending Provider: Estephania Murguia Primary Care Provider: Radha Quigley Instructions Patient Instructions: Carotid Artery Problems: Stroke Additional Instructions / Restrictions: 1. Ideally we would like to see the BP less than 130/80. Keeping your BP < 130/80 will decrease the risk for strokes in the future. When we had the BP less than 130/80 you complained of dizziness so we backed off on the medication a bit. Your BP for the few days prior to discharge has ranged from 131/68 to 156/82. BP often changes when a patient goes home. I suggest you obtain a BP cuff and take you BP a few times a day and write down the time and the BP. Take this record of your BP readings to Dr. Quigley and to Dr. Zayas (neurology). You are being discharged on Cardizem CD 180 mg twice a day and a Clonidine patch TTS-1. you will change the patch once a week. When you were taking the TTS 2 patch with the Cardizem the BP was well controlled. 2. Often after a stroke the sodium in the blood drops. This is often due to a condition called SIADH or Syndrome of inappropriate anti-diuretic hormone. This occurs when your body retains free water and the sodium gets diluted. A low sodium can cause confusion, lightheadedness, weakness and even seizures if it goes low enough. The initial treatment for SIADH in strokes is fluid restriction and salt tablets. A normal sodium is 135-145. Your sodium was as low as 127. The sodium did not come up with fluid restriction alone and I added salt tablets. Your sodium at discharge from rehab is 135.......the lowest normal I am liberalizing the fluid restriction to 1500 mls per day which is 50 ounces. We have decreased the salt tabs to 1 gram twice a day. Dr. Quigley will want to check the sodium at your next office visit and then she will tell you what to do with the salt tabs and the fluid restriction. 3. You were not taking your medications as directed prior to the stroke. Your cholesterol was high and your BP was very high. 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 This means the the arteries are partially occluded. You will be seeing Dr. Small from vascular surgery to discuss if you need to have surgery to remove the sludge from the carotid arteries. In order to keep the atherosclerosis from getting worse you must take your medications exactly as prescribed and you must follow up with Dr. Quigley on a regular basis. In addition to having high cholesterol and high BP you are also prediabetic. This means that you are not officially diabetic but, you could become diabetic. Watch your carbohydrate intake and maintain a healthy weight. 4. Your goals to help prevent future strokes are BP < 130/80, LDL (bad cholesterol) 70 or Less and HGBA1C (a test for diabetes) < 7.0. Your HGBA1C at admission to the hospital was 5.8 (the highest normal is 5.6). Your LDL was 131. Dr. Quigley will want to check your cholesterol and your liver tests in the next few weeks to make sure the LDL is at goal and the Liver tests are not elevated. The medications to lower cholesterol are called statins and they can cause the liver enzymes to go up. 5. You should not drive when you are discharged. Your cognitive function has been impaired by the stroke and you are not aware of the deficits you have........this makes you unsafe to drive. There is a driving school at [facility] in [place] that does evaluations on people with strokes and other disabilities to make sure that they are safe to resume driving. The oncology social work has given you the information about the program and a referral was sent to the program for you. The referral will be good for the next 3 months. 6. The nurses applied the heart monitor prior to you leaving rehab. At the end of 14 days you will mail the monitor back as instructed and then you will need to follow up with cardiology. An appt has been made for you. this is to see if a problem with the rhythm of the heart may have contributed to the stroke. 7. You should not be taking Prempro. This drug can cause blood clots that can cause strokes. 8. Take better care of yourself. You do not want to have another stroke. If you or your family have any questions after you leave rehab please do not hesitate to call me. OFFICE: [phone] CELL: [phone] Discharge Orders/Prescriptions Prescriptions: New acetaminophen 500 mg Tablet 1,000 mg PO Q8H PRN PRN (Reason: Pain 1-10 Or Fever) Qty: 1 0RF clonidine 0.1 mg/24 hr Patch Weekly 0.1 mg transdermal Q7D@2230 Qty: 4 0RF Rx Instructions: This is for BP. Change the patch once a week. bupropion HCl 150 mg Tablet Extended Release 24 Hr 150 mg PO 0700 Qty: 30 0RF sodium chloride 1,000 mg Tablet,Soluble 1,000 mg PO BID Qty: 28 0RF Rx Instructions: This is to keep the sodium normal. Take it twice a day. diltiazem HCl 240 mg capsule,extended release 24hr 240 mg PO BID Qty: 60 0RF Rx Instructions: Take this medication twice daily for BP Continued atorvastatin 80 mg Tablet 80 mg PO QHS Qty: 30 0RF Rx Instructions: This controls cholesterol. Take it once a day at bedtime. aspirin 81 mg Tablet,Delayed Release (/Ec) 81 mg PO BREAKFAST Qty: 0 0RF Rx Instructions: Take once a day with food to prevent strokes. Discontinued lisinopril 10 mg Tablet 10 mg PO DAILY hydrochlorothiazide 50 mg tablet 50 mg PO DAILY atenolol 50 mg tablet 50 mg PO DAILY Referrals / Follow Up: Elmo Hanna MD [Med Staff - Active Staff] - 05/26/24 10:30 am Shamir Small MD [Med Staff - Active Staff] - 05/13/24 2:00 pm Radha Quigley MD [Primary Care Provider] - 04/23/24 10:05 am Abdullahi Farah MD [Non-Staff] - 05/17/24 10:00 am Disposition Disposition (needs filled in before D/C Order can be placed): Home, Self Care
[2024-04-20 13:47] VITALS: BP 124/66; PULSE 72
--- NOTE | 2024-04-20 14:10 | EX.DISCHREH ---
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 0.1 mg/24 hr Patch Weekly 0.1 mg transdermal Q7D@2230 Qty: 4 0RF Rx Instructions: This is for BP. Change the patch once a week. bupropion HCl 150 mg Tablet Extended Release 24 Hr 150 mg PO 0700 Qty: 30 0RF sodium chloride 1,000 mg Tablet,Soluble 1,000 mg PO BID Qty: 28 0RF Rx Instructions: This is to keep the sodium normal. Take it twice a day. diltiazem HCl 240 mg capsule,extended release 24hr 240 mg PO BID Qty: 60 0RF Rx Instructions: Take this medication twice daily for BP Continued atorvastatin 80 mg Tablet 80 mg PO QHS Qty: 30 0RF Rx Instructions: This controls cholesterol. Take it once a day at bedtime. aspirin 81 mg Tablet,Delayed Release (Dr/Ec) 81 mg PO BREAKFAST Qty: 0 0RF Rx Instructions: Take once a day with food to prevent strokes. Discontinued lisinopril 10 mg Tablet 10 mg PO DAILY hydrochlorothiazide 50 mg tablet 50 mg PO DAILY atenolol 50 mg tablet 50 mg PO DAILY Referrals / Follow Up: Elmo Hanna MD [Med Staff - Active Staff] - 05/26/24 10:30 am Shamir Small MD [Med Staff - Active Staff] - 05/13/24 2:00 pm Radha Quigley MD [Primary Care Provider] - 04/23/24 10:05 am Abdullahi Farah MD [Non-Staff] - 05/17/24 10:00 am Disposition Disposition (needs filled in before D/C Order can be placed): Home, Self Care Charges/Coding Visit Charges Inpatient E&M: 59086 Disch Hosp >30min
[2024-04-20 18:00] VITALS: BP 135/70; PULSE 75; RESP 16; TEMP 37.1; O2SAT 95
[2024-04-20 22:00] VITALS: BP 158/80; PULSE 87; RESP 17; TEMP 36.4; O2SAT 97
[2024-04-20] MEDS: Acetaminophen 500 MG Tablet 1000 MG PO (22:02)
[2024-04-20] MEDS: Atorvastatin Calcium 80 MG Tablet PO (22:02)
[2024-04-20 23:53] VITALS: BMI 28.7
[2024-04-21 06:00] VITALS: BP 157/76; PULSE 84; RESP 16; TEMP 36.5; O2SAT 97; BMI 28.2
[2024-04-21] MEDS: Enoxaparin 40 MG/0.4 ML Syringe SC (06:36)
[2024-04-21] MEDS: buPROPion (XL) 150 MG TABLET.XL PO (06:36)
[2024-04-21] MEDS: Arthritis Pain Compound 60 CLICK TUBE TOPICAL (08:12)
[2024-04-21] MEDS: Sodium Chloride 1 GM Tablet PO (08:12)
[2024-04-21] MEDS: dilTIAZem CD 180 MG Capsule PO (08:12)
[2024-04-21] MEDS: Aspirin E.C. 81 MG Tablet PO (08:12)
[2024-04-21 10:23] VITALS: BP 130/72; PULSE 78
[2024-04-21] MEDS: cloNIDine HCl 0.1 MG Patch TD (13:12)
[2024-04-21 13:22] VITALS: BMI 28.2
[2024-04-21 13:29] VITALS: BP 130/72; PULSE 78; RESP 17; TEMP 37.1; O2SAT 97
--- NOTE | 2024-04-21 13:30 | NURSING ---
discharged home with daughter. discharge instructions, medications, and appointments reviewed with pt and family. denies questions or concerns
== END 2024-04-21 13:31 | disposition home or self-care (01) | DRG 57 ==
PROVIDERS: Admitting Provider Internal Medicine; PCP Internal Medicine; Visit Provider Internal Medicine
DX: I69.351 Hemiplegia and hemiparesis following cerebral infarction affecting right dominant side (principal); E22.2 Syndrome of inappropriate secretion of antidiuretic hormone; G93.89 Other specified disorders of brain; I10 Essential (primary) hypertension; I69.393 Ataxia following cerebral infarction; M17.0 Bilateral primary osteoarthritis of knee; M54.41 Lumbago with sciatica, right side; E87.6 Hypokalemia; F41.9 Anxiety disorder, unspecified; M54.42 Lumbago with sciatica, left side; E78.5 Hyperlipidemia, unspecified; Z79.82 Long term (current) use of aspirin; F51.01 Primary insomnia; R73.9 Hyperglycemia, unspecified; F98.8 Other specified behavioral and emotional disorders with onset usually occurring in childhood and adolescence; Z79.899 Other long term (current) drug therapy; Z91.148 Patient's other noncompliance with medication regimen for other reason
CPT/HCPCS: 36415; 80048; 80053; 81001; 83735; 83930; 83935; 84100; 84300; 85025; 85027; 87086; 92507; 92523; 92610; 97110; 97112; 97116; 97129; 97130; 97162; 97166; 97530; 97535; 97802; 97803; A4216

== ENCOUNTER 2024-04-29 09:42 | Outpatient (RCR) | payer MEDICARE, SELFPAY ==
--- NOTE | 2024-04-29 10:51 | HP.PTEVAL_ITS ---
Patient's Visit Information Visit Information Visit Information: TOBI SCHWARTZ is a 83 year old F referred to Physical Therapy by Dr. Estephania Murguia DO with a diagnosis of Stroke. Date of Evaluation: 04/29/24 Physical Therapist: Dmitry Chiang Visit Plan Frequency: 2x /Week Duration: 6 Weeks Plan: Continue with improving LE strength and balance. Subjective Subjective: Pt. is a 83 y.o. female who suffered a stroke at the end of February which affected her right side and was in the hospital for about five weeks. Pt. is currently ambulating with a cane at times. Her PLOF includes no use of a cane prior to the stroke. Pt. has constant numbness in her right foot which she had prior to the stroke. She denies any recent falls other than when she had her stroke and fell in her dining room. Pt. has difficulty with walking, walking on uneven ground, ascending/descending stairs, squatting, driving, golfing, dancing, and occasional housework. Pt. is retired mostly but still real estate. Her goal with physical therapy is to get back to driving, golfing, and dancing. Pt. denies any pain. Her PMH includes HBP controlled with medication and possible a-fib. Pt. lives alone in a condo with two steps to enter with grab bar. Her hobbies include dancing and golfing. Objective Objective: Hip PROM- WNL bilaterally Left LE strength hip flexion 5/5, abduction 5/5, adduction 5/5, extension 5/5, knee flexion 5/5, knee extension 5/5, ankle DF 5/5, ankle PF 5/5 Right LE strength hip flexion 4+/5, abduction 4+/5, adduction 5/5, extension 4+/5, knee flexion 5/5, knee extension 5/5, ankle DF 5/5, ankle PF 5/5 30 sec sit to stand- x 12 with no arm assist. Srivastava Balance score- 46/56 Coordination tests- Heel to hill [-], finger to nose [-] Tandem stance on right [28 secs], left [6 secs] SLS on right [3 secs], left [3 secs] Gait- Pt. ambulates with SPC. Balance/Special Test Scores Lower Extremity Functional Score: 26 Goals Goal 1:: Pt. will report no falls. Goal Time Frame: 4-6 Weeks Goal 2:: Pt. will be able to ambulate with no assistive device or gait deviations. Goal Time Frame: 4-6 Weeks Goal 3:: Pt. will improve Srivastava Balance > 50/56 in order to improve stability and balance. Goal Time Frame: 4-6 Weeks Goal 4:: Pt. will be able to ascend/descend a flight of stairs with alternating step pattern and unilateral handrail. Goal Time Frame: 4-6 Weeks Goal 5:: Pt. will improve LEFS score < 50% disability in order to improve stability and balance. Goal Time Frame: 4-6 Weeks Rehabilitation Potential Physical Therapy Diagnosis: Decreased LE strength, difficulty walking, and balance impairment Rehabilitation Potential: Good Anticipated Interventions Patient/Client Instruction: Educate patient on: Condition and Plan of Care For the Purpose of:: To improve ability to perform ADL's, To improve performance and independence with ADL's, To improve gait and locomotor functions, To assume or resume ADL's and To improve tolerance to ADL's Therapeutic Exercise to Include: Strength training, Balance training and Gait and locomotor training Comment: Continue with improving LE strength and balance. For the Purpose of:: To improve ability to perform ADL's, To improve performance and independence with ADL's, To improve gait and locomotor functions, To improve balance, To assume or resume ADL's, To improve safety and To improve tolerance t o ADL's Functional Training to Include: ADL Training and Gait training For the Purpose of:: To improve ability to perform ADL's, To improve performance and independence with ADL's, To increase flexibility/ROM, To improve balance, To assume or resume ADL's, To improve safety and To improve tolerance to ADL's Assistive Devices: Cane For the Purpose of:: To improve ability to perform ADL's, To improve performance and independence with ADL's, To improve gait and locomotor functions, To increase flexibility/ROM, To improve balance, To improve safety with gait, To assume or resume ADL's, To improve safety and To improve tolerance to ADL's Text: Thank you for the opportunity to evaluate your patient. For Medicare and Medicare HMO plans, please review the plan of care and approve it. It will need to be FAXED BACK to us at [phone] for Medicare purposes. For Medicare only, by signing this I certify the plan of care. Please let me know if there are questions or concerns regarding this plan of care. Physician Signature: Date:
--- NOTE | 2024-04-29 15:40 | HP.OTEVAL ---
Patient's Visit Information Visit Information Visit Information: TOBI SCHWARTZ is a 83 year old F, referred to Occupational Therapy by Dr. Estephania Murguia DO, with a diagnosis of stroke. Date of Evaluation: 04/29/24 Occupational Therapist: Esther Gmable Subjective Subjective: 83 year old female arrives with dx of a stroke. Accident 03/18/24, [facility] 4 weeks, home since 04/21/24. States struggles with right side balance. 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 Enjoys golf, dancing, concerts, and volunteering. Stroke affecting dominant R side. Per pt report biggest struggle is coordination. No falls since incident. Objective Objective/Observation: Pt arrives using cane as means of mobility with occasional LOB self corrected. Forward hunch posture. ROM ROM Comments: WNL Strength Shoulder: L flex 21.4# R flex 17.3# Elbow: L ex15.8# L flex27.6# R ex14.7# R flex21# Roll Forming Supervisor: R35# L45# Lateral Pinch: R7# L6# Tripod Pinch: R5# L5# Strength Comments: ER L 17.8# ER R 13.7# Edema Other: none noted Sensation Sensation Comments: R does not feel like L Nine Hole Peg Right: 45sec Left: 41sec In-Hand Manipulation Finger to Palm Translation: Moderate - Right and Normal - Left Palm to Finger Translation: Moderate - Right and Normal - Left Shift: Mild - Right and Normal - Left Quick DASH-Disab of Arm,Shoulder& Hand Quick DASH Score: 52.2725 Goals Goal:: pt tp increase R tricep strength equal to or greater than non affected side (15.8) in order to complete IADL tasks. pt to increase R shoulder flex strength equal to or greater than non affected side (21.4) in order to complete IADL tasks. pt to increase R ER strength equal to or greater than non affected side (17.8) in order to complete IADL tasks. pt to increase R agriculture department chair strength equal to or greater than non affected side (45) in order to complete IADL tasks. Goal:: pt to improve R hand 9 hole peg score equal to non affected side (41sec) in order to perform typing. Goal:: pt will report same sensation on various textures 5/5 trials in order to return to day to day function. Goal:: pt will improve quickdash score by 10 points or more (52.27) in order to maximize use of R UE. Goal:: pt will dem ability to complete finger to nose assessment 5/5 trials with 100% accuracy. pt will demo ability to catch ball B hands 5/5 trials in order to decrease risk for falls. Rehabilitation General Assessment: This 83 year old female arrives s/p stroke resulting in impairments to R UE strength, coordination, dysmetria, reaction time, sensation, and in hand manipulation impacting her ability to perform daily functional tasks. OT necessary 1x a week for 4 weeks to address above impairments. 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 For Medicare and Medicare HMO plans, please review the plan of care and approve it. It will need to be FAXED BACK to us at [phone] for Medicare purposes. Please let me know if there are questions or concerns regarding this plan of care. Physician Signature: Date:
--- NOTE | 2024-07-13 16:29 | HP.PT.NRP ---
Patient Information Patient Information: TOBI SCHWARTZ was seen in my office for initial evaluation on 04/29/24. The following Plan of Care was established for this patient: POC Established Initial Frequency: 2x /Week Initial Duration: 6 Weeks Anticipated Interventions Patient/Client Instruction: Educate patient on: Condition and Plan of Care For the Purpose of:: To improve ability to perform ADL's, To improve performance and independence with ADL's, To improve gait and locomotor functions, To assume or resume ADL's and To improve tolerance to ADL's Therapeutic Exercise to Include: Strength training, Balance training and Gait and locomotor training For the Purpose of:: To improve ability to perform ADL's, To improve performance and independence with ADL's, To improve gait and locomotor functions, To improve balance, To assume or resume ADL's, To improve safety and To improve tolerance to ADL's Functional Training to Include: ADL Training and Gait training For the Purpose of:: To improve ability to perform ADL's, To improve performance and independence with ADL's, To increase flexibility/ROM, To improve balance, To assume or resume ADL's, To improve safety and To improve tolerance to ADL's Assistive Devices: Cane For the Purpose of:: To improve ability to perform ADL's, To improve performance and independence with ADL's, To improve gait and locomotor functions, To increase flexibility/ROM, To improve balance, To improve safety with gait, To assume or resume ADL's, To improve safety and To improve tolerance to ADL's Last Seen Last Seen: This patient was last seen in our office 04/29/24. Pertinent comments regarding their Physical therapy will appear below: Pt seen for initial eval and POC established. Did not return for any visits past that point. It has now been over 2 months and I will discontinue from my care. At this point I will be discontinuing this patient from physical therapy. I would be happy to see this patient again in the future if found appropriate by the physician. Thank you! Shamir Palmer, DPT, OCS, CSCS Balance/Gait/Functional tests Balance/Special Test Scores Lower Extremity Functional Score: 26
== END 2024-04-29 19:00 | disposition home or self-care (01) ==
LOC: PT 09:42
PROVIDERS: PCP Internal Medicine; Referring Provider Internal Medicine; Visit Provider Internal Medicine
DX: Z86.73 Personal history of transient ischemic attack (TIA), and cerebral infarction without residual deficits (principal); R41.89 Other symptoms and signs involving cognitive functions and awareness
CPT/HCPCS: 97110; 97161; 97165; 97530

== ENCOUNTER → 2024-09-27 | Outpatient (CLI) | payer MEDICARE, SELFPAY ==
--- NOTE | 2024-09-27 16:27 | RAD_ITS ---
STUDY: X-RAY - RIGHT TIBIA AND FIBULA REASON FOR EXAM: Female, 83 years old. trauma TECHNIQUE: AP and lateral view(s) of the tibia and fibula were obtained. COMPARISON: None. FINDINGS: Normal visualized tibia. Normal visualized fibula. The soft tissue structures are unremarkable. RAD/Tibia & Fibula 2 Views IMPRESSION: Normal x-ray examination of the tibia and fibula. Electronically Signed: Basil Mehta MD at 18:00 EST ,
--- NOTE | 2024-09-27 16:27 | RAD_ITS ---
STUDY: X-RAY - PELVIS AND RIGHT HIP REASON FOR EXAM: Female, 83 years old. trauma TECHNIQUE: 3 views of the pelvis and hip. COMPARISON: None. FINDINGS: There is a non-specific bowel gas pattern. Normal visualized soft tissue structures. Normal bilateral iliac wings, sacroiliac joints and visualized sacrum. Normal bilateral superior and inferior pubic rami. Normal pubic symphysis. Normal bilateral ischial tuberosities. Normal visualized femoral head. Normal acetabulum. Normal hip joint. RAD/HIP, UNI W/ Pelvis 2-3 Views IMPRESSION: Normal x-ray examination of the pelvis and hip. Electronically Signed: Basil Mehta MD at 18:01 EST ,
--- NOTE | 2024-09-27 16:45 | RAD_ITS ---
STUDY: X-RAY - RIGHT KNEE REASON FOR EXAM: Female, 83 years old. trauma TECHNIQUE: Exam view(s) of the knee. COMPARISON: None. FINDINGS: Normal visualized distal femur. Normal visualized proximal tibia and fibula. Normal proximal tibiofibular articulation. Narrowed medial femorotibial compartment. Normal lateral femorotibial compartment. Normal patellofemoral articulation. The soft tissue structures are unremarkable. RAD/Knee 3 Views IMPRESSION: Mild degenerative change. No acute fracture or subluxation Electronically Signed: Basil Mehta MD at 18:03 EST Reading Location ID and State: [facility] / [place] Tel , Service support ,
== END | disposition home or self-care (01) ==
LOC: MTRAD 16:26
PROVIDERS: PCP Internal Medicine; Referring Provider Physician Assistant; Visit Provider Physician Assistant
DX: S80.911A Unspecified superficial injury of right knee, initial encounter (principal); S79.911A Unspecified injury of right hip, initial encounter; S89.91XA Unspecified injury of right lower leg, initial encounter; X58.XXXA Exposure to other specified factors, initial encounter
CPT/HCPCS: 73502; 73562; 73590